=== PATIENT | female | born 1970 | race African-American/Black ===

== ENCOUNTER 2016-12-02 09:43 | Inpatient (IN) | payer OTHER ==
[2016-12-02 10:17] VITALS: BMI 23.2
--- NOTE | 2016-12-02 13:10 | HP ---
CIWA Score - CIWA Score Nausea/Vomitin (N/V/D) Muscle Tremors: 4-Moderate,w/Arms Extend Anxiety: 4-Mod. Anxious/Guarded Agitation: 4-Moderately Restless Paroxysmal Sweats: 1-Minimal Palms Moist Orientation: 0-Oriented Tacttile Disturbances: 3-Moderate Itch/Numb/Burn Auditory Disturbances: 0-None Visual Disturbances: 0-None Headache: 0-None Present CIWA-Ar Total Score: 21 Admission ROS [facility] - HPI Chief Complaint: DETOX TX FOR ALCOHOL. Allergies/Adverse Reactions: Allergies Allergy/AdvReac Type Severity Reaction Status Date / Time No Known Allergies Allergy Verified 12/02/16 10:34 History of Present Illness: 46 Y/O AA/FEMALE WITH A HX OF HEROIN,ALCOHOL AND COCAINE DEPENDENCE AND ON [facility] SEEKING DETOX TX Exam Limitations: No Limitations - Ebola screening Have you traveled outside of the country in the last 21 days: No Have you had contact with anyone from an Ebola affected area: No Have you been sick,other than usual withdrawal symptoms: No Do you have a fever: No - Review of Systems Constitutional: No Symptoms Reported, Chills, Night Sweats, Changes in sleep, Unintentional Wgt. Loss EENT: reports: Blurred Vision, Tearing, Nose Congestion, Dental Problems ( MISSING ALL TEETH) Respiratory: reports: Shortness of Breath (HX ASTHMA), Wheezing Cardiac: reports: Lightheadedness GI: reports: Constipated, Diarrhea, Nausea, Poor Fluid Intake, Vomiting, Abdominal cramping : reports: No Symptoms Reported Musculoskeletal: reports: Back Pain, Joint Pain, Muscle Pain, Other (LEFT LEG SHORTER THAN RIGHT DUE TO BONE FUSION SX.) Integumentary: reports: Bruising (IVD INJ) Neuro: reports: Unsteady Gait, Dizziness Endocrine: reports: No Symptoms Reported Hematology: reports: No Symptoms Reported Psychiatric: reports: Orientated x3, Anxious, Depressed Other Systems: Reviewed and Negative Patient History - Patient Medical History Hx Anemia: No Hx Asthma: Yes Hx Chronic Obstructive Pulmonary Disease (COPD): No Hx Cancer: No Hx Cardiac Disorders: No Hx Congestive Heart Failure: No Hx Hypertension: No Hx Hypercholesterolemia: No Hx Pacemaker: No HX Cerebrovascular Accident: No Hx Seizures: No Hx Dementia: No Hx Diabetes: No Hx Gastrointestinal Disorders: No Hx Liver Disease: No Hx Genitourinary Disorders: No Hx Sexually Transmitted Disorders: No Hx Renal Disease (ESRD): No Hx Thyroid Disease: No Hx Human Immunodeficiency Virus (HIV): No (last tested 12/25/13) Hx Hepatitis C: Yes (since age of 18 years) Hx Depression: Yes Hx Suicide Attempt: No (DENIES S/H IDEATIONS) Hx Bipolar Disorder: No Hx Schizophrenia: No - Patient Surgical History Past Surgical History: Yes Hx Abdominal Surgery: Yes (umbillical hernia repair) Hx Section: No Hx Orthopedic Surgery: Yes (total knee replacement in 10/01 at [facility]) Hx Hysterectomy: No Anesthesia Reaction: No - PPD History Previous Implant?: Yes Documented Results: Negative w/proof Implanted On Prior R Admission?: Yes Date: 08/06/16 - Reproductive History Patient is a Female of Child Bearing Age (11 -55 yrs old): Yes LMP comment: 2-3 YEARS AGO Patient : No - Smoking Cessation Smoking history: Current every day smoker Have you smoked in the past 12 months: Yes Aproximately how many cigarettes per day: 7 Cigars Per Day: 0 Hx Chewing Tobacco Use: No Initiated information on smoking cessation: Yes 'Breaking Loose' booklet given: 12/02/16 - Substance & Tx. History Hx Alcohol Use: Yes Hx Substance Use: Yes Substance Use Type: Alcohol, Cocaine, Heroin Hx Substance Use Treatment: Yes ([facility]OX) - Substances Abused Alcohol Route: Oral Frequency: Daily Amount used: gin(1 pt) Age of first use: 10 Date of Last Use: 12/02/16 Cocaine Route: Smoking Frequency: Daily Amount used: $50 Age of first use: 13 Date of Last Use: 12/01/16 Heroin Route: Injection Frequency: Daily Amount used: 4-5 bags Age of first use: 16 Date of Last Use: 12/02/16 Family Disease History - Family Disease History Family Disease History: Diabetes: Sister, Other: Grandparent (alcohol), Mother ( hypertension) Admission Physical Exam S - Vital Signs Vital Signs: Vital Signs - 24 hr 12/02/16 10:11 Temperature 96.5 F L Pulse Rate 67 Respiratory 20 Rate Blood Pressure 97/50 - Physical General Appearance: Yes: Moderate Distress, Irritable, Anxious HEENTM: Yes: EOMI, Normocephalic, [place], Pharynx Normal, Nasal Congestion, Rhinorrhea, Other (WATERY EYES) Respiratory: Yes: Chest Non-Tender, Lungs Clear, No Respiratory Distress Neck: Yes: No masses,lesions,Nodules, Supple, Trachea in good position Breast: Yes: Breast Exam Deferred Cardiology: Yes: Regular Rhythm, Regular Rate, S1, S2 Abdominal: Yes: Normal Bowel Sounds, Non Tender, Soft Genitourinary: Yes: Other (N/C) Back: Yes: Within Normal Limits Musculoskeletal: Yes: full range of Motion, Gait Steady, Other (LEFT KNEE SX SCAR--) Extremities: Yes: Normal Range of Motion, Non-Tender Neurological: Yes: cigarette package examiner II-XII NML intact, Fully Oriented, Alert, Motor Strength 5/5 Integumentary: Yes: Dry, Warm, Track [place] (BOTH ELBOWS) Lymphatic: Yes: Within Normal Limits - Diagnostic (1) Asthma Current Visit: Yes Status: Chronic Qualifiers: Asthma severity: mild intermittent Asthma complication type: uncomplicated Qualified Code(s): J45.20 - Mild intermittent asthma, uncomplicated (2) Hepatitis C carrier Current Visit: Yes Status: Chronic (3) Methadone maintenance therapy patient Current Visit: Yes Status: Chronic (4) Nicotine dependence Current Visit: Yes Status: Acute Qualifiers: Nicotine product type: cigarettes Substance use status: in withdrawal Qualified Code(s): F17.213 - Nicotine dependence, cigarettes, with withdrawal (5) Alcohol dependence with uncomplicated withdrawal Current Visit: Yes Status: Acute (6) Cocaine dependence, uncomplicated Current Visit: Yes Status: Acute Cleared for Admission [facility] - Detox or Rehab [facility] Level of Care: Medically Managed Detox Regimen/Protocol: Librium [facility] Breath Alcohol Content Breath Alcohol Content: 0 Urine Pregancy Test - Result Urine Test Results: Negative- NO Line Present Urine Drug Screen - Results Drug Screen Negative: No Urine Drug Screen Results: VENTURA-Cocaine, OPI-Opiates, MTD-Methadone
[2016-12-02] MEDS ORDERED: IBUPROFEN 400 MG TABLET (FP) PO PRN (13:31)
[2016-12-02] MEDS ORDERED: NICOTINE POLACRILEX 2 MG GUM BUC PRN (13:31)
[2016-12-02] MEDS ORDERED: MENTHOL/PHENOL 1 EACH UD MM PRN (13:31)
[2016-12-02] MEDS ORDERED: MAGNESIUM HYDROX 2400MG/30ML ORAL SUSPENSION 30 ML CUP PO PRN (13:31)
[2016-12-02] MEDS ORDERED: chlordiazePOXIDE HCL 25 MG CAPSULE PO PRN (13:31)
[2016-12-02] MEDS ORDERED: hydrOXYzine PAMOATE 25 MG CAPSULE (FP) PO PRN (13:31)
[2016-12-02] MEDS ORDERED: MAG HYDROX/AL HYDROX/SIMETH 30 ML UNIT-DOSE CUP PO PRN (13:31)
[2016-12-02] MEDS ORDERED: P-EPHED 60MG/TRIPROLIDI 2.5MG TABLET PO PRN (13:31)
[2016-12-02] MEDS ORDERED: ACETAMINOPHEN 325 MG TABLET (FP) PO PRN (13:31)
[2016-12-02] MEDS ORDERED: MAGNESIUM CITRATE 300 ML BOTTLE PO PRN (13:31)
[2016-12-02] MEDS ORDERED: guaiFENesin/D-METHORPHAN HB 10 ML UNIT-DOSE CUPS PO PRN (13:31)
[2016-12-02] MEDS ORDERED: diphenhydrAMINE HCL 50 MG CAPSULE PO PRN (13:31)
[2016-12-02] MEDS ORDERED: LOPERAMIDE HCL 2 MG CAPSULE PO PRN (13:31)
[2016-12-02] MEDS ORDERED: PATIENT'S OWN MEDICATION (NON-FORMULARY) (Albuterol Sulfate [Proair Respiclick] 90 MCG) IH SCH (13:45)
[2016-12-02] MEDS ORDERED: chlordiazePOXIDE HCL 25 MG CAPSULE PO ONE (14:06)
[2016-12-02] MEDS ORDERED: ALBUTEROL SO4 6.7 GM HFA INHALER IH PRN (14:44)
[2016-12-02] MEDS: GABAPENTIN 100 MG CAPSULE (FP) PO SCH ×2 (14:46→23:38)
[2016-12-02] MEDS: NICOTINE 14 MG/24 HOURS TOPICAL PATCH TD SCH (14:47)
[2016-12-02 14:53] LABS: HIV 1 & 2 AB NEGATIVE; HIV 1 AGp24 NEGATIVE
[2016-12-02] MEDS: chlordiazePOXIDE HCL 25 MG CAPSULE PO SCH ×2 (17:28→23:37)
[2016-12-02 20:14] LABS: URINE APPEARANCE CLEAR; URINE BILIRUBIN NEGATIVE (NEGATIVE); URINE BLOOD NEGATIVE (NEGATIVE); URINE COLOR YELLOW; URINE GLUCOSE (UA) NEGATIVE (NEGATIVE); URINE KETONE NEGATIVE (NEGATIVE); URINE LEUK ESTERASE NEGATIVE (NEGATIVE); URINE NITRITE NEGATIVE (NEGATIVE); URINE PROTEIN NEGATIVE (NEGATIVE); URINE UROBILINOGEN 4.0 E.U/dl E.U./dl (0.2-1.0)
[2016-12-02] MEDS: THIAMINE HCL 100 MG TABLET (FP) PO SCH (23:38)
[2016-12-03] MEDS ORDERED: METHADONE HCL 40 MG DISPERSABLE TABLET PO SCH (06:00)
[2016-12-03] MEDS: chlordiazePOXIDE HCL 25 MG CAPSULE PO SCH ×4 (06:47→23:55)
[2016-12-03] MEDS ORDERED: METHADONE HCL 10 MG TABLET ONE (07:03)
[2016-12-03] MEDS ORDERED: METHADONE HCL 40 MG DISPERSABLE TABLET ONE (07:06)
[2016-12-03] MEDS: METHADONE 40 MG, METHADONE 10 MG PO SCH (07:35)
[2016-12-03] MEDS: GABAPENTIN 100 MG CAPSULE (FP) PO SCH ×3 (07:35→22:46)
[2016-12-03 10:49] LABS: MCH 29.9 pg (25.7-33.7); MCHC 32.7 g/dl (32.0-36.0); MEAN CELL VOLUME 91.5 fl (80-96); MEAN PLT VOLUME 10.3 fl (7.5-11.1); PLATELET COUNT 237 K/MM3 (134-434); RDW 14.7 % (11.6-15.6); WHITE BLOOD COUNT 8.1 K/mm3 (4.0-10.0)
[2016-12-03] MEDS: PRENATAL VITAMINS W/ FOLIC ACID TABLET (FP) PO SCH (11:29)
[2016-12-03] MEDS: NICOTINE 14 MG/24 HOURS TOPICAL PATCH TD SCH (11:30)
[2016-12-03 11:57] LABS: ALBUMIN 3.5 g/dl (3.4-5.0); CALCIUM 8.8 mg/dL (8.5-10.1); CREATININE 1.1 mg/dL (0.55-1.02)
[2016-12-03 11:58] LABS: BILIRUBIN,TOTAL 0.6 mg/dL (0.2-1.0)
--- NOTE | 2016-12-03 14:12 | PN ---
S CIWA - CIWA Score Nausea/Vomitin Muscle Tremors: 3 Anxiety: 3 Agitation: 3 Paroxysmal Sweats: 1-Minimal Palms Moist Orientation: 0-Oriented Tacttile Disturbances: 1-Very Mild Itch/Numbness Auditory Disturbances: 1-Very Mild Visual Disturbances: 1-Very Mild Sensitivity Headache: 2-Mild CIWA-Ar Total Score: 18 BHS Progress Note (SOAP) Subjective: ALERT,IRRITABLE,ANXIOUS,INTERRUPTED SLEEP,TREMOR Objective: 12/03/16 14:10 Vital Signs Temperature 97.1 F L 12/03/16 07:03 Pulse Rate 54 L 12/03/16 07:03 Respiratory Rate 16 12/03/16 07:03 Blood Pressure 145/87 12/03/16 07:03 O2 Sat by Pulse Oximetry (%) ECG NSR NORMAL ECG Laboratory Last Values WBC 8.1 K/mm3 (4.0-10.0) 12/03/16 06:00 RBC 4.56 M/mm3 (3.60-5.2) 12/03/16 06:00 Hgb 13.6 GM/dL (10.7-15.3) 12/03/16 06:00 Hct 41.8 % (32.4-45.2) 12/03/16 06:00 MCV 91.5 fl (80-96) 12/03/16 06:00 MCHC 32.7 g/dl (32.0-36.0) 12/03/16 06:00 RDW 14.7 % (11.6-15.6) D 12/03/16 06:00 Plt Count 237 K/MM3 (134-434) 12/03/16 06:00 MPV 10.3 fl (7.5-11.1) D 12/03/16 06:00 Sodium 141 mmol/L (136-145) 12/03/16 06:00 Potassium 4.4 mmol/L (3.5-5.1) 12/03/16 06:00 Chloride 97 mmol/L (98-107) L 12/03/16 06:00 Carbon Dioxide 33 mmol/L (21-32) H 12/03/16 06:00 Anion Gap 11 (8-16) 12/03/16 06:00 BUN 17 mg/dL (7-18) 12/03/16 06:00 Creatinine 1.1 mg/dL (0.55-1.02) H 12/03/16 06:00 Creat Clearance w eGFR 53.24 (>60) 12/03/16 06:00 Random Glucose 80 mg/dL (74-106) 12/03/16 06:00 Calcium 8.8 mg/dL (8.5-10.1) 12/03/16 06:00 Total Bilirubin 0.6 mg/dL (0.2-1.0) 12/03/16 06:00 AST 22 U/L (15-37) D 12/03/16 06:00 ALT 16 U/L (12-78) D 12/03/16 06:00 Alkaline Phosphatase 109 U/L (45-117) D 12/03/16 06:00 Total Protein 8.0 g/dl (6.4-8.2) 12/03/16 06:00 Albumin 3.5 g/dl (3.4-5.0) 12/03/16 06:00 Urine Color Yellow 12/02/16 19:36 Urine Appearance Clear 12/02/16 19:36 Urine pH 6.0 (5.0-8.0) 12/02/16 19:36 Ur Specific [place] 1.010 (1.001-1.035) 12/02/16 19:36 Urine Protein Negative (NEGATIVE) 12/02/16 19:36 Urine Glucose (UA) Negative (NEGATIVE) 12/02/16 19:36 Urine Ketones Negative (NEGATIVE) 12/02/16 19:36 Urine Blood Negative (NEGATIVE) 12/02/16 19:36 Urine Nitrite Negative (NEGATIVE) 12/02/16 19:36 Urine Bilirubin Negative (NEGATIVE) 12/02/16 19:36 Urine Urobilinogen 4.0 e.u/dl E.U./dl (0.2-1.0) H 12/02/16 19:36 Ur Leukocyte Esterase Negative (NEGATIVE) 12/02/16 19:36 HIV 1&2 Antibody Screen Negative 12/02/16 11:15 HIV P24 Antigen Negative 12/02/16 11:15 Assessment: 12/03/16 14:11 WITHDRAWAL SYMPTOM Plan: CONTINUE DETOX
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
[2016-12-03] MEDS ORDERED: QUEtiapine FUMARATE 200 MG TABLET PO SCH (22:00)
[2016-12-03] MEDS ORDERED: busPIRone HCL 10 MG TABLET (FP) PO SCH (22:00)
[2016-12-03] MEDS: THIAMINE HCL 100 MG TABLET (FP) PO SCH (22:44)
[2016-12-03] MEDS: busPIRone HCL 5 MG TABLET PO SCH (22:45)
[2016-12-03] MEDS: QUEtiapine FUMARATE 100 MG TABLET (FP) PO SCH (22:46)
[2016-12-03] MEDS: ZOLPIDEM TARTRATE 5 MG TABLET PO PRN (22:48)
[2016-12-04] MEDS ORDERED: METHADONE HCL 40 MG DISPERSABLE TABLET ONE (05:39)
[2016-12-04] MEDS ORDERED: METHADONE HCL 10 MG TABLET ONE (05:39)
[2016-12-04] MEDS: METHADONE 40 MG, METHADONE 10 MG PO SCH (06:23)
[2016-12-04] MEDS: GABAPENTIN 100 MG CAPSULE (FP) PO SCH ×3 (06:23→22:32)
[2016-12-04] MEDS: chlordiazePOXIDE HCL 25 MG CAPSULE PO SCH ×2 (06:24→10:51)
[2016-12-04] MEDS: NICOTINE 14 MG/24 HOURS TOPICAL PATCH TD SCH (10:51)
[2016-12-04] MEDS: busPIRone HCL 5 MG TABLET PO SCH ×2 (10:51→22:31)
[2016-12-04] MEDS: PRENATAL VITAMINS W/ FOLIC ACID TABLET (FP) PO SCH (10:51)
--- NOTE | 2016-12-04 11:41 | EKG ---
Test Reason : Blood Pressure : / mmHG Vent. Rate : 062 BPM Atrial Rate : 062 BPM P-R Int : 122 ms QRS Dur : 098 ms QT Int : 416 ms P-R-T Axes : 053 049 035 degrees QTc Int : 422 ms NORMAL SINUS RHYTHM NORMAL ECG NO PREVIOUS ECGS AVAILABLE Confirmed by TIMBO MONTALVO MD ([id number]) on 12/04/2016 11:40:35 AM Referred By: Zhou Brown Confirmed By:TIMBO MONTALVO MD
--- NOTE | 2016-12-04 12:38 | PN ---
S CIWA - CIWA Score Nausea/Vomitin Muscle Tremors: 3 Anxiety: 3 Agitation: 2 Paroxysmal Sweats: 1-Minimal Palms Moist Orientation: 0-Oriented Tacttile Disturbances: 1-Very Mild Itch/Numbness Auditory Disturbances: 1-Very Mild Visual Disturbances: 1-Very Mild Sensitivity Headache: 2-Mild CIWA-Ar Total Score: 17 BHS Progress Note (SOAP) Subjective: ALERT,IRRITABLE,ANXIOUS,INTERRUPTED SLEEP,TREMOR Objective: 12/04/16 12:45 Vital Signs Temperature 98.7 F 12/04/16 10:02 Pulse Rate 77 12/04/16 10:02 Respiratory Rate 20 12/04/16 10:02 Blood Pressure 132/78 12/04/16 10:02 O2 Sat by Pulse Oximetry (%) Laboratory Last Values WBC 8.1 K/mm3 (4.0-10.0) 12/03/16 06:00 RBC 4.56 M/mm3 (3.60-5.2) 12/03/16 06:00 Hgb 13.6 GM/dL (10.7-15.3) 12/03/16 06:00 Hct 41.8 % (32.4-45.2) 12/03/16 06:00 MCV 91.5 fl (80-96) 12/03/16 06:00 MCHC 32.7 g/dl (32.0-36.0) 12/03/16 06:00 RDW 14.7 % (11.6-15.6) D 12/03/16 06:00 Plt Count 237 K/MM3 (134-434) 12/03/16 06:00 MPV 10.3 fl (7.5-11.1) D 12/03/16 06:00 Sodium 141 mmol/L (136-145) 12/03/16 06:00 Potassium 4.4 mmol/L (3.5-5.1) 12/03/16 06:00 Chloride 97 mmol/L (98-107) L 12/03/16 06:00 Carbon Dioxide 33 mmol/L (21-32) H 12/03/16 06:00 Anion Gap 11 (8-16) 12/03/16 06:00 BUN 17 mg/dL (7-18) 12/03/16 06:00 Creatinine 1.1 mg/dL (0.55-1.02) H 12/03/16 06:00 Creat Clearance w eGFR 53.24 (>60) 12/03/16 06:00 Random Glucose 80 mg/dL (74-106) 12/03/16 06:00 Calcium 8.8 mg/dL (8.5-10.1) 12/03/16 06:00 Total Bilirubin 0.6 mg/dL (0.2-1.0) 12/03/16 06:00 AST 22 U/L (15-37) D 12/03/16 06:00 ALT 16 U/L (12-78) D 12/03/16 06:00 Alkaline Phosphatase 109 U/L (45-117) D 12/03/16 06:00 Total Protein 8.0 g/dl (6.4-8.2) 12/03/16 06:00 Albumin 3.5 g/dl (3.4-5.0) 12/03/16 06:00 Urine Color Yellow 12/02/16 19:36 Urine Appearance Clear 12/02/16 19:36 Urine pH 6.0 (5.0-8.0) 12/02/16 19:36 Ur Specific [place] 1.010 (1.001-1.035) 12/02/16 19:36 Urine Protein Negative (NEGATIVE) 12/02/16 19:36 Urine Glucose (UA) Negative (NEGATIVE) 12/02/16 19:36 Urine Ketones Negative (NEGATIVE) 12/02/16 19:36 Urine Blood Negative (NEGATIVE) 12/02/16 19:36 Urine Nitrite Negative (NEGATIVE) 12/02/16 19:36 Urine Bilirubin Negative (NEGATIVE) 12/02/16 19:36 Urine Urobilinogen 4.0 e.u/dl E.U./dl (0.2-1.0) H 12/02/16 19:36 Ur Leukocyte Esterase Negative (NEGATIVE) 12/02/16 19:36 RPR Titer Nonreactive (NONREACTIVE) 12/03/16 06:00 HIV 1&2 Antibody Screen Negative 12/02/16 11:15 HIV P24 Antigen Negative 12/02/16 11:15 Assessment: 12/04/16 12:46 WITHDRAWAL SYMPTOM Plan: CONTINUE DETOX
[2016-12-04] MEDS: chlordiazePOXIDE 5 MG CAPSULE PO SCH ×2 (17:45→22:32)
[2016-12-04] MEDS: QUEtiapine FUMARATE 100 MG TABLET (FP) PO SCH (22:32)
[2016-12-04] MEDS: THIAMINE HCL 100 MG TABLET (FP) PO SCH (22:32)
[2016-12-05] MEDS ORDERED: METHADONE HCL 10 MG TABLET ONE (04:32)
[2016-12-05] MEDS: GABAPENTIN 100 MG CAPSULE (FP) PO SCH ×3 (05:32→22:31)
[2016-12-05] MEDS: chlordiazePOXIDE 5 MG CAPSULE PO SCH ×2 (05:32→11:59)
[2016-12-05] MEDS: METHADONE 40 MG, METHADONE 10 MG PO SCH (05:32)
--- NOTE | 2016-12-05 10:42 | PN ---
BHS Progress Note (SOAP) Subjective: irritable sweats interrupted sleep Objective: 12/05/16 10:41 Vital Signs Temperature 97.8 F 12/05/16 10:17 Pulse Rate 75 12/05/16 10:17 Respiratory Rate 18 12/05/16 10:17 Blood Pressure 112/66 12/05/16 10:17 O2 Sat by Pulse Oximetry (%) awake/alert ambulating no acute distress Assessment: 12/05/16 10:41 withdrawal sx Plan: continue detox increase fluids d/c in am
[2016-12-05] MEDS: PRENATAL VITAMINS W/ FOLIC ACID TABLET (FP) PO SCH (11:32)
[2016-12-05] MEDS: NICOTINE 14 MG/24 HOURS TOPICAL PATCH TD SCH (11:32)
[2016-12-05] MEDS: busPIRone HCL 5 MG TABLET PO SCH ×2 (11:32→22:31)
[2016-12-05] MEDS ORDERED: chlordiazePOXIDE 5 MG CAPSULE ONE ×2 (17:56→21:11)
[2016-12-05] MEDS: chlordiazePOXIDE HCL 10 MG CAPSULE PO SCH ×2 (17:56→22:31)
[2016-12-05] MEDS: ZOLPIDEM TARTRATE 5 MG TABLET PO PRN (22:31)
[2016-12-05] MEDS: THIAMINE HCL 100 MG TABLET (FP) PO SCH (22:31)
[2016-12-05] MEDS: QUEtiapine FUMARATE 100 MG TABLET (FP) PO SCH (22:32)
[2016-12-06] MEDS ORDERED: chlordiazePOXIDE 5 MG CAPSULE ONE (04:42)
[2016-12-06] MEDS ORDERED: METHADONE HCL 10 MG TABLET ONE (05:46)
[2016-12-06] MEDS ORDERED: METHADONE HCL 40 MG DISPERSABLE TABLET ONE (05:47)
[2016-12-06] MEDS: METHADONE 40 MG, METHADONE 10 MG PO SCH (06:39)
[2016-12-06] MEDS: GABAPENTIN 100 MG CAPSULE (FP) PO SCH ×2 (06:42→13:23)
[2016-12-06] MEDS: chlordiazePOXIDE HCL 10 MG CAPSULE PO SCH ×2 (06:42→10:45)
--- NOTE | 2016-12-06 09:01 | DS ---
[facility] Detox Discharge Summary Admission Date: 12/02/16 Discharge Date: 12/06/16 - History Present History: Alcohol Dependence, Cocaine Dependence - Physical Exam Results Vital Signs: Vital Signs Temperature 98.1 F 12/06/16 06:46 Pulse Rate 65 12/06/16 06:46 Respiratory Rate 16 12/06/16 06:46 Blood Pressure 123/77 12/06/16 06:46 O2 Sat by Pulse Oximetry (%) - Treatment Hospital Course: Detox Protocol Followed, Detoxed Safely, Responded well, Discharged Condition Good - Medication Discharge Medications: Ambulatory Orders Quetiapine Fumarate [Seroquel] 50 mg PO DAILY 12/25/13 Zolpidem Tartrate [Ambien] 10 mg PO HS 12/25/13 Quetiapine Fumarate [Seroquel -] 300 mg PO HS 08/04/16 Gabapentin [Neurontin -] 100 mg PO TID #90 capsule 08/08/16 Albuterol Sulfate [Proair Respiclick] 90 mcg IH PRN #1 aer.[email or web address] 08/09/16 Buspirone HCl [Buspar -] 10 mg PO BID 12/02/16 Methadone [Dolophine -] 50 mg PO DAILY 12/02/16 Buspirone HCl [Buspar -] 5 mg PO BID #30 tablet 12/03/16 Quetiapine Fumarate [Seroquel -] 200 mg PO HS #30 tab 12/03/16 - Diagnosis (1) Alcohol dependence with uncomplicated withdrawal Current Visit: Yes Status: Chronic (2) Cocaine dependence, uncomplicated Current Visit: Yes Status: Chronic (3) Insomnia Current Visit: Yes Status: Chronic Qualifiers: Insomnia type: unspecified Qualified Code(s): G47.00 - Insomnia, unspecified (4) Nicotine dependence Current Visit: Yes Status: Chronic Qualifiers: Nicotine product type: cigarettes Substance use status: in withdrawal Qualified Code(s): F17.213 - Nicotine dependence, cigarettes, with withdrawal (5) Opioid dependence on agonist therapy Current Visit: Yes Status: Chronic (6) Asthma Current Visit: Yes Status: Chronic Qualifiers: Asthma severity: mild intermittent Asthma complication type: uncomplicated Qualified Code(s): J45.20 - Mild intermittent asthma, uncomplicated (7) Hepatitis C carrier Current Visit: Yes Status: Chronic - AMA Did Patient Leave Against Medical Advice: No
[2016-12-06] MEDS: PRENATAL VITAMINS W/ FOLIC ACID TABLET (FP) PO SCH (10:44)
[2016-12-06] MEDS: busPIRone HCL 5 MG TABLET PO SCH (10:45)
[2016-12-06] MEDS: NICOTINE 14 MG/24 HOURS TOPICAL PATCH TD SCH (10:45)
[2016-12-06 11:26] VITALS: BP 107/81; PULSE 91; TEMP 99.1
== END 2016-12-06 14:26 | disposition other institution (70) | DRG 773 ==
LOC: YASAS 09:43 → Y6N 11:35
PROVIDERS: ADMIT Internal Medicine Addiction Medicine; ATTEND Internal Medicine Addiction Medicine
PROC: HZ2ZZZZ Detoxification Services for Substance Abuse Treatment (ICD-10-PCS; principal; 2016-12-06)
DX: F11.20 Opioid dependence, uncomplicated (principal); F13.230 Sedative, hypnotic or anxiolytic dependence with withdrawal, uncomplicated; F14.20 Cocaine dependence, uncomplicated; F17.213 Nicotine dependence, cigarettes, with withdrawal; G47.00 Insomnia, unspecified; B18.2 Chronic viral hepatitis C; J45.20 Mild intermittent asthma, uncomplicated; T84.84XS Pain due to internal orthopedic prosthetic devices, implants and grafts, sequela
CPT/HCPCS: 36415; 80053; 81003; 85027; 86593; 87389; 93005; 93010

== ENCOUNTER 2016-12-06 14:42 | Inpatient (IN) | payer OTHER ==
[2016-12-06] MEDS ORDERED: ACETAMINOPHEN 325 MG TABLET (FP) PO PRN (15:29)
[2016-12-06] MEDS ORDERED: MENTHOL/PHENOL 1 EACH UD MM PRN (15:29)
[2016-12-06] MEDS ORDERED: LOPERAMIDE HCL 2 MG CAPSULE PO PRN (15:29)
[2016-12-06] MEDS ORDERED: NICOTINE POLACRILEX 2 MG GUM BUC PRN (15:29)
[2016-12-06] MEDS ORDERED: MAGNESIUM HYDROX 2400MG/30ML ORAL SUSPENSION 30 ML CUP PO PRN (15:29)
[2016-12-06] MEDS ORDERED: P-EPHED 60MG/TRIPROLIDI 2.5MG TABLET PO PRN (15:29)
[2016-12-06] MEDS ORDERED: guaiFENesin/D-METHORPHAN HB 10 ML UNIT-DOSE CUPS PO PRN (15:29)
[2016-12-06] MEDS ORDERED: MAGNESIUM CITRATE 300 ML BOTTLE PO PRN (15:29)
[2016-12-06] MEDS ORDERED: diphenhydrAMINE HCL 50 MG CAPSULE PO PRN (15:29)
--- NOTE | 2016-12-06 15:35 | HP ---
[facility] Rehab Assess/Revision - Admission History Admitted to Rehab from: [facility] Date of Admission to Rehab: 12/06/16 - Vital signs Vital Signs: Vital Signs 12/06/16 15:54 Temperature 98.2 F Pulse Rate 80 Respiratory 18 Rate Blood Pressure 100/73 - Findings Detox History & Physical reviewed: Yes Concur with findings: Yes
[2016-12-06] MEDS: GABAPENTIN 100 MG CAPSULE (FP) PO SCH (21:04)
[2016-12-06] MEDS: QUEtiapine FUMARATE 50 MG TABLET PO SCH (21:05)
[2016-12-06] MEDS: busPIRone HCL 10 MG TABLET (FP) PO SCH (21:05)
[2016-12-06] MEDS: THIAMINE HCL 100 MG TABLET (FP) PO SCH (21:05)
[2016-12-06] MEDS ORDERED: QUEtiapine FUMARATE 300 MG TABLET PO SCH (22:00)
[2016-12-07] MEDS ORDERED: METHADONE HCL 10 MG TABLET PO SCH (06:00)
[2016-12-07] MEDS ORDERED: METHADONE HCL 40 MG DISPERSABLE TABLET ONE (06:16)
[2016-12-07] MEDS ORDERED: METHADONE HCL 10 MG TABLET ONE (06:16)
[2016-12-07] MEDS: GABAPENTIN 100 MG CAPSULE (FP) PO SCH ×3 (06:50→21:10)
[2016-12-07] MEDS: METHADONE 40 MG, METHADONE 10 MG PO SCH (06:50)
[2016-12-07] MEDS ORDERED: QUEtiapine FUMARATE 50 MG TABLET PO SCH (10:00)
[2016-12-07] MEDS: PRENATAL VITAMINS W/ FOLIC ACID TABLET (FP) PO SCH (10:10)
[2016-12-07] MEDS: busPIRone HCL 10 MG TABLET (FP) PO SCH ×2 (10:11→21:10)
[2016-12-07] MEDS ORDERED: PT OWN MED DRAWER 7, Y5N ONE ×2 (12:07→22:52)
[2016-12-07] MEDS: IBUPROFEN 400 MG TABLET (FP) PO PRN (14:26)
[2016-12-07] MEDS: QUEtiapine FUMARATE 50 MG TABLET PO SCH (21:09)
[2016-12-07] MEDS: THIAMINE HCL 100 MG TABLET (FP) PO SCH (21:10)
[2016-12-08] MEDS ORDERED: METHADONE HCL 10 MG TABLET ONE (03:05)
[2016-12-08] MEDS ORDERED: METHADONE HCL 40 MG DISPERSABLE TABLET ONE (03:05)
[2016-12-08] MEDS: METHADONE 40 MG, METHADONE 10 MG PO SCH (06:55)
[2016-12-08] MEDS: GABAPENTIN 100 MG CAPSULE (FP) PO SCH ×3 (06:56→21:11)
[2016-12-08] MEDS: PRENATAL VITAMINS W/ FOLIC ACID TABLET (FP) PO SCH (09:53)
[2016-12-08] MEDS: busPIRone HCL 10 MG TABLET (FP) PO SCH ×2 (09:53→21:11)
[2016-12-08] MEDS: THIAMINE HCL 100 MG TABLET (FP) PO SCH (21:11)
[2016-12-08] MEDS: QUEtiapine FUMARATE 50 MG TABLET PO SCH (21:12)
[2016-12-08] MEDS: MAG HYDROX/AL HYDROX/SIMETH 30 ML UNIT-DOSE CUP PO PRN (21:12)
[2016-12-09] MEDS ORDERED: METHADONE HCL 10 MG TABLET ONE (05:51)
[2016-12-09] MEDS ORDERED: METHADONE HCL 40 MG DISPERSABLE TABLET ONE (05:51)
[2016-12-09] MEDS: METHADONE 40 MG, METHADONE 10 MG PO SCH (07:07)
[2016-12-09] MEDS: GABAPENTIN 100 MG CAPSULE (FP) PO SCH ×3 (07:08→21:15)
[2016-12-09] MEDS: PRENATAL VITAMINS W/ FOLIC ACID TABLET (FP) PO SCH (10:08)
[2016-12-09] MEDS: busPIRone HCL 10 MG TABLET (FP) PO SCH ×2 (10:08→21:15)
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
[2016-12-09] MEDS: IBUPROFEN 400 MG TABLET (FP) PO PRN (11:25)
[2016-12-09] MEDS ORDERED: PT OWN MED DRAWER 7, Y5N ONE (19:41)
[2016-12-09] MEDS: THIAMINE HCL 100 MG TABLET (FP) PO SCH (21:15)
[2016-12-09] MEDS: QUEtiapine FUMARATE 50 MG TABLET PO SCH (21:15)
[2016-12-10] MEDS ORDERED: METHADONE HCL 40 MG DISPERSABLE TABLET ONE (03:08)
[2016-12-10] MEDS ORDERED: METHADONE HCL 10 MG TABLET ONE (03:08)
[2016-12-10] MEDS: METHADONE 40 MG, METHADONE 10 MG PO SCH (06:56)
[2016-12-10] MEDS: GABAPENTIN 100 MG CAPSULE (FP) PO SCH ×3 (06:56→21:21)
[2016-12-10] MEDS: PRENATAL VITAMINS W/ FOLIC ACID TABLET (FP) PO SCH (09:44)
[2016-12-10] MEDS: busPIRone HCL 10 MG TABLET (FP) PO SCH ×2 (09:44→21:21)
[2016-12-10] MEDS: MAG HYDROX/AL HYDROX/SIMETH 30 ML UNIT-DOSE CUP PO PRN (09:47)
[2016-12-10] MEDS ORDERED: MAGNESIUM CITRATE 300 ML BOTTLE PO PRN (20:29)
[2016-12-10] MEDS: THIAMINE HCL 100 MG TABLET (FP) PO SCH (21:21)
[2016-12-10] MEDS: QUEtiapine FUMARATE 50 MG TABLET PO SCH (21:22)
[2016-12-11] MEDS ORDERED: METHADONE HCL 40 MG DISPERSABLE TABLET ONE (03:06)
[2016-12-11] MEDS ORDERED: METHADONE HCL 10 MG TABLET ONE (03:06)
[2016-12-11] MEDS: METHADONE 40 MG, METHADONE 10 MG PO SCH (06:36)
[2016-12-11] MEDS: GABAPENTIN 100 MG CAPSULE (FP) PO SCH ×3 (06:37→21:37)
[2016-12-11] MEDS: busPIRone HCL 10 MG TABLET (FP) PO SCH ×2 (10:10→21:37)
[2016-12-11] MEDS: PRENATAL VITAMINS W/ FOLIC ACID TABLET (FP) PO SCH (10:10)
[2016-12-11] MEDS ORDERED: SODIUM PHOSPHATE/NA BIPHOS 133 ML ENEMA PR ONE (14:56)
[2016-12-11] MEDS: QUEtiapine FUMARATE 50 MG TABLET PO SCH (21:36)
[2016-12-11] MEDS: THIAMINE HCL 100 MG TABLET (FP) PO SCH (21:37)
[2016-12-11] MEDS: ALBUTEROL SO4 6.7 GM HFA INHALER IH PRN (21:46)
[2016-12-12] MEDS ORDERED: METHADONE HCL 10 MG TABLET ONE (03:36)
[2016-12-12] MEDS ORDERED: METHADONE HCL 40 MG DISPERSABLE TABLET ONE (03:36)
[2016-12-12] MEDS: METHADONE 40 MG, METHADONE 10 MG PO SCH (06:44)
[2016-12-12] MEDS: GABAPENTIN 100 MG CAPSULE (FP) PO SCH ×3 (06:45→21:51)
[2016-12-12] MEDS: PRENATAL VITAMINS W/ FOLIC ACID TABLET (FP) PO SCH (10:10)
[2016-12-12] MEDS: busPIRone HCL 10 MG TABLET (FP) PO SCH ×2 (10:10→21:51)
[2016-12-12] MEDS: ALBUTEROL SO4 6.7 GM HFA INHALER IH PRN (10:10)
[2016-12-12] MEDS: QUEtiapine FUMARATE 50 MG TABLET PO SCH (21:51)
[2016-12-12] MEDS: THIAMINE HCL 100 MG TABLET (FP) PO SCH (21:51)
[2016-12-12] MEDS: DOCUSATE SODIUM 100 MG CAPSULE (FP) PO SCH (21:52)
[2016-12-13] MEDS ORDERED: METHADONE HCL 40 MG DISPERSABLE TABLET ONE (05:55)
[2016-12-13] MEDS ORDERED: METHADONE HCL 10 MG TABLET ONE (05:55)
[2016-12-13] MEDS: METHADONE 40 MG, METHADONE 10 MG PO SCH (07:06)
[2016-12-13] MEDS: GABAPENTIN 100 MG CAPSULE (FP) PO SCH ×3 (07:06→21:33)
[2016-12-13] MEDS: DOCUSATE SODIUM 100 MG CAPSULE (FP) PO SCH ×2 (10:06→21:33)
[2016-12-13] MEDS: busPIRone HCL 10 MG TABLET (FP) PO SCH ×2 (10:06→21:33)
[2016-12-13] MEDS: PRENATAL VITAMINS W/ FOLIC ACID TABLET (FP) PO SCH (10:06)
[2016-12-13] MEDS: QUEtiapine FUMARATE 50 MG TABLET PO SCH (21:33)
[2016-12-13] MEDS: THIAMINE HCL 100 MG TABLET (FP) PO SCH (21:34)
[2016-12-14] MEDS ORDERED: METHADONE HCL 40 MG DISPERSABLE TABLET ONE (06:15)
[2016-12-14] MEDS ORDERED: METHADONE HCL 10 MG TABLET ONE (06:15)
[2016-12-14] MEDS: GABAPENTIN 100 MG CAPSULE (FP) PO SCH ×3 (06:46→21:29)
[2016-12-14] MEDS: METHADONE 40 MG, METHADONE 10 MG PO SCH (06:46)
[2016-12-14] MEDS: busPIRone HCL 10 MG TABLET (FP) PO SCH ×2 (10:07→21:30)
[2016-12-14] MEDS: DOCUSATE SODIUM 100 MG CAPSULE (FP) PO SCH ×2 (10:07→21:29)
[2016-12-14] MEDS: PRENATAL VITAMINS W/ FOLIC ACID TABLET (FP) PO SCH (10:07)
[2016-12-14] MEDS ORDERED: PT OWN MED DRAWER 7, Y5N ONE ×2 (12:05→19:56)
[2016-12-14] MEDS: IBUPROFEN 400 MG TABLET (FP) PO PRN (16:31)
[2016-12-14] MEDS: THIAMINE HCL 100 MG TABLET (FP) PO SCH (21:29)
[2016-12-14] MEDS: QUEtiapine FUMARATE 50 MG TABLET PO SCH (21:29)
[2016-12-15] MEDS ORDERED: METHADONE HCL 40 MG DISPERSABLE TABLET ONE (03:41)
[2016-12-15] MEDS ORDERED: METHADONE HCL 10 MG TABLET ONE (03:41)
[2016-12-15] MEDS: GABAPENTIN 100 MG CAPSULE (FP) PO SCH ×3 (06:49→21:31)
[2016-12-15] MEDS: METHADONE 40 MG, METHADONE 10 MG PO SCH (06:49)
[2016-12-15] MEDS: busPIRone HCL 10 MG TABLET (FP) PO SCH ×2 (10:03→21:32)
[2016-12-15] MEDS: DOCUSATE SODIUM 100 MG CAPSULE (FP) PO SCH ×2 (10:03→21:32)
[2016-12-15] MEDS: PRENATAL VITAMINS W/ FOLIC ACID TABLET (FP) PO SCH (10:03)
[2016-12-15] MEDS ORDERED: PT OWN MED DRAWER 7, Y5N ONE ×2 (13:24→13:29)
[2016-12-15] MEDS: ALBUTEROL SO4 6.7 GM HFA INHALER IH PRN (13:24)
[2016-12-15] MEDS: THIAMINE HCL 100 MG TABLET (FP) PO SCH (21:31)
[2016-12-15] MEDS: QUEtiapine FUMARATE 50 MG TABLET PO SCH (21:32)
[2016-12-16] MEDS ORDERED: METHADONE HCL 40 MG DISPERSABLE TABLET ONE (03:19)
[2016-12-16] MEDS ORDERED: METHADONE HCL 10 MG TABLET ONE (03:19)
[2016-12-16] MEDS: METHADONE 40 MG, METHADONE 10 MG PO SCH (06:46)
[2016-12-16] MEDS: GABAPENTIN 100 MG CAPSULE (FP) PO SCH ×3 (06:47→21:22)
[2016-12-16] MEDS: ALBUTEROL SO4 6.7 GM HFA INHALER IH PRN (10:15)
[2016-12-16] MEDS ORDERED: PT OWN MED DRAWER 7, Y5N ONE (10:15)
[2016-12-16] MEDS: PRENATAL VITAMINS W/ FOLIC ACID TABLET (FP) PO SCH (10:16)
[2016-12-16] MEDS: DOCUSATE SODIUM 100 MG CAPSULE (FP) PO SCH ×2 (10:16→21:21)
[2016-12-16] MEDS: busPIRone HCL 10 MG TABLET (FP) PO SCH ×2 (10:16→21:22)
[2016-12-16] MEDS: QUEtiapine FUMARATE 50 MG TABLET PO SCH (21:21)
[2016-12-16] MEDS: THIAMINE HCL 100 MG TABLET (FP) PO SCH (21:22)
[2016-12-16] MEDS: IBUPROFEN 400 MG TABLET (FP) PO PRN (21:22)
[2016-12-17] MEDS ORDERED: METHADONE HCL 10 MG TABLET ONE (05:47)
[2016-12-17] MEDS ORDERED: METHADONE HCL 40 MG DISPERSABLE TABLET ONE (05:47)
[2016-12-17] MEDS: METHADONE 40 MG, METHADONE 10 MG PO SCH (06:55)
[2016-12-17] MEDS: GABAPENTIN 100 MG CAPSULE (FP) PO SCH ×3 (06:56→21:19)
[2016-12-17] MEDS ORDERED: PT OWN MED DRAWER 7, Y5N ONE (08:48)
[2016-12-17] MEDS: PRENATAL VITAMINS W/ FOLIC ACID TABLET (FP) PO SCH (09:59)
[2016-12-17] MEDS: ALBUTEROL SO4 6.7 GM HFA INHALER IH PRN (10:00)
[2016-12-17] MEDS: busPIRone HCL 10 MG TABLET (FP) PO SCH ×2 (10:00→21:19)
[2016-12-17] MEDS: DOCUSATE SODIUM 100 MG CAPSULE (FP) PO SCH ×2 (10:00→21:19)
[2016-12-17] MEDS: THIAMINE HCL 100 MG TABLET (FP) PO SCH (21:19)
[2016-12-17] MEDS: QUEtiapine FUMARATE 50 MG TABLET PO SCH (21:19)
[2016-12-17] MEDS: IBUPROFEN 400 MG TABLET (FP) PO PRN (21:21)
[2016-12-18] MEDS ORDERED: METHADONE HCL 40 MG DISPERSABLE TABLET ONE (05:59)
[2016-12-18] MEDS ORDERED: METHADONE HCL 10 MG TABLET ONE (05:59)
[2016-12-18] MEDS: METHADONE 40 MG, METHADONE 10 MG PO SCH (07:06)
[2016-12-18] MEDS: IBUPROFEN 400 MG TABLET (FP) PO PRN (07:07)
[2016-12-18] MEDS: GABAPENTIN 100 MG CAPSULE (FP) PO SCH ×3 (07:07→21:28)
[2016-12-18] MEDS: busPIRone HCL 10 MG TABLET (FP) PO SCH ×2 (09:38→21:28)
[2016-12-18] MEDS: DOCUSATE SODIUM 100 MG CAPSULE (FP) PO SCH ×2 (09:38→21:28)
[2016-12-18] MEDS: ALBUTEROL SO4 6.7 GM HFA INHALER IH PRN ×2 (09:38→21:30)
[2016-12-18] MEDS: PRENATAL VITAMINS W/ FOLIC ACID TABLET (FP) PO SCH (09:38)
[2016-12-18] MEDS: QUEtiapine FUMARATE 50 MG TABLET PO SCH (21:28)
[2016-12-18] MEDS: THIAMINE HCL 100 MG TABLET (FP) PO SCH (21:28)
[2016-12-19] MEDS ORDERED: METHADONE HCL 40 MG DISPERSABLE TABLET ONE (03:07)
[2016-12-19] MEDS ORDERED: METHADONE HCL 10 MG TABLET ONE (03:07)
[2016-12-19] MEDS: METHADONE 40 MG, METHADONE 10 MG PO SCH (06:39)
[2016-12-19] MEDS: GABAPENTIN 100 MG CAPSULE (FP) PO SCH ×3 (06:40→21:34)
[2016-12-19] MEDS: ALBUTEROL SO4 6.7 GM HFA INHALER IH PRN (09:34)
[2016-12-19] MEDS: PRENATAL VITAMINS W/ FOLIC ACID TABLET (FP) PO SCH (09:34)
[2016-12-19] MEDS: DOCUSATE SODIUM 100 MG CAPSULE (FP) PO SCH ×2 (09:35→21:34)
[2016-12-19] MEDS: busPIRone HCL 10 MG TABLET (FP) PO SCH ×2 (09:35→21:34)
[2016-12-19] MEDS: IBUPROFEN 400 MG TABLET (FP) PO PRN (13:17)
[2016-12-19] MEDS: LIDOCAINE 5% TOPICAL PATCH TP SCH (15:07)
[2016-12-19] MEDS: THIAMINE HCL 100 MG TABLET (FP) PO SCH (21:34)
[2016-12-19] MEDS: QUEtiapine FUMARATE 50 MG TABLET PO SCH (21:34)
[2016-12-20] MEDS ORDERED: METHADONE HCL 40 MG DISPERSABLE TABLET ONE (05:15)
[2016-12-20] MEDS ORDERED: METHADONE HCL 10 MG TABLET ONE (05:15)
[2016-12-20] MEDS: GABAPENTIN 100 MG CAPSULE (FP) PO SCH ×3 (06:14→21:17)
[2016-12-20] MEDS: METHADONE 40 MG, METHADONE 10 MG PO SCH (06:15)
[2016-12-20] MEDS: PRENATAL VITAMINS W/ FOLIC ACID TABLET (FP) PO SCH (10:11)
[2016-12-20] MEDS: busPIRone HCL 10 MG TABLET (FP) PO SCH ×2 (10:11→21:17)
[2016-12-20] MEDS: DOCUSATE SODIUM 100 MG CAPSULE (FP) PO SCH ×2 (10:11→21:17)
[2016-12-20] MEDS: LIDOCAINE 5% TOPICAL PATCH TP SCH (10:12)
[2016-12-20] MEDS: IBUPROFEN 600 MG TABLET (FP) PO PRN (19:07)
[2016-12-20] MEDS: THIAMINE HCL 100 MG TABLET (FP) PO SCH (21:17)
[2016-12-20] MEDS: QUEtiapine FUMARATE 50 MG TABLET PO SCH (21:17)
[2016-12-21] MEDS ORDERED: METHADONE HCL 10 MG TABLET ONE (06:03)
[2016-12-21] MEDS ORDERED: METHADONE HCL 40 MG DISPERSABLE TABLET ONE (06:03)
[2016-12-21] MEDS: GABAPENTIN 100 MG CAPSULE (FP) PO SCH ×3 (06:35→21:36)
[2016-12-21] MEDS: METHADONE 40 MG, METHADONE 10 MG PO SCH (06:35)
[2016-12-21] MEDS: IBUPROFEN 600 MG TABLET (FP) PO PRN (06:37)
[2016-12-21] MEDS: busPIRone HCL 10 MG TABLET (FP) PO SCH ×2 (10:10→21:36)
[2016-12-21] MEDS: LIDOCAINE 5% TOPICAL PATCH TP SCH (10:10)
[2016-12-21] MEDS: PRENATAL VITAMINS W/ FOLIC ACID TABLET (FP) PO SCH (10:10)
[2016-12-21] MEDS: DOCUSATE SODIUM 100 MG CAPSULE (FP) PO SCH ×2 (10:10→21:36)
[2016-12-21] MEDS ORDERED: COLLOIDAL OATMEAL 1 BAR EACH TP PRN (14:49)
--- NOTE | 2016-12-21 16:27 | PN ---
Psychiatric Progress Note Vital Signs: Vital Signs Period Temp Pulse Resp BP Sys/Vidal Pulse Ox Last 24 Hr 98.0 F 69 16-18 151/86 Date of Session: 12/21/16 Chief Complaint:: Emmanuel not sleeping well,still having mood instability. HPI: Patient addressed Alcohol,Cocaine and Opioid dependence comorbid with Substance induced mood disorder. ROS: BA,Hep C. Current Medications: Active Medications Generic Name Dose Route Start Last Admin Trade Name Freq PRN Reason Stop Dose Admin Acetaminophen 650 mg 12/06/16 15:29 Tylenol - PO Q4H PRN FEVER OR PAIN Al Hydroxide/Mg Hydroxide 30 ml 12/06/16 15:29 12/10/16 09:47 Mylanta Oral Suspension - PO 30 ml Q6H PRN Administration DYSPEPSIA Albuterol Sulfate 2 puff 12/06/16 15:31 12/19/16 09:34 Ventolin Hfa Inhaler - IH 2 puff Q4H PRN Administration SHORT OF BREATH/WHEEZING Buspirone HCl 10 mg 12/06/16 22:00 12/21/16 10:10 Buspar - PO 10 mg BID JAYSON Administration Colloidal Oatmeal 1 applic 12/21/16 14:49 Aveeno Soap - TP DAILY PRN HYGEINE Diphenhydramine HCl 50 mg 12/06/16 15:29 Benadryl - PO HSMR1 PRN FOR ITCHING Docusate Sodium 100 mg 12/12/16 22:00 12/21/16 10:10 Colace - PO 100 mg BID JAYSON Administration Eucalyptus/Menthol/Phenol/Sorbitol 1 each 12/06/16 15:29 Cepastat Lozenge - MM Q4H PRN SORE THROAT Gabapentin 100 mg 12/06/16 22:00 12/21/16 13:34 Neurontin - PO 100 mg TID JAYSON Administration Guaifenesin 10 ml 12/06/16 15:29 Robitussin Dm - PO Q6H PRN COUGH Ibuprofen 600 mg 12/19/16 14:33 12/21/16 06:37 Motrin - PO 600 mg Q6H PRN Administration PAIN Lidocaine 1 patch 12/19/16 15:15 12/21/16 10:10 Lidoderm Patch - TP 1 patch DAILY JAYSON Administration Loperamide HCl 4 mg 12/06/16 15:29 Imodium - PO Q6H PRN DIARRHEA Magnesium Hydroxide 30 ml 12/06/16 15:29 12/10/16 14:24 Milk Of Magnesia - PO 30 ml DAILY PRN Administration CONSTIPATION Methadone HCl 40 mg/ Methadone 50 mg 12/21/16 06:00 12/21/16 06:35 HCl 10 mg PO 12/27/16 05:59 50 mg DAILY@0600 JAYSON Administration Nicotine Polacrilex 2 mg 12/06/16 15:29 Nicorette Gum - BUC Q2H PRN NICOTINE REPLACEMENT RX Multivit/Folic Acid/Iron 1 tab 12/07/16 10:00 12/21/16 10:10 Vitamins (Sjr) - PO 1 tab DAILY JAYSON Administration Pseudoephedrine/Triprolidine 1 combo 12/06/16 15:29 Actifed - PO TID PRN NASAL CONGESTION Quetiapine Fumarate 200 mg 12/21/16 22:00 Seroquel - PO HS JAYSON Thiamine HCl 100 mg 12/06/16 22:00 12/20/16 21:17 Vitamin B1 - PO 100 mg HS JAYSON Administration Current Side Effect: No Lab tests ordered: No Lab tests reviewed: Yes Provider note:: Chart was rewueved .Medications and treatment plan has been discussed with the patient .She reported that higher dose of Seroquel helped her a lot in ther past.Properties of Seroquel has been discussed including side effects,benefits and dose adjustment.Seroquel 150 mg po hs will be adjusted to 200 mg po hs. Supportive therapy has been provided. Total face to face time:: 30 Mental Status Exam - Mental Status Exam Alert and Oriented to: Time, Place, Person Cognitive Function: Grossly Intact Patient Appearance: Well Groomed Mood: Anxious Affect: Mood Congruent Patient Behavior: Cooperative Speech Pattern: Clear Voice Loudness: Normal Thought Process: Goal Oriented Thought Disorder: Not Present Hallucinations: Denies Suicidal Ideation: Denies Homicidal Ideation: Denies Insight/Judgement: Fair Sleep: Difficulty falling asleep Appetite: Good Muscle strength/Tone: Normal Gait/Station: Normal Psychiatric Treatment Plan - Problem List (1) Substance induced mood disorder Current Visit: Yes (2) Alcohol dependence with uncomplicated withdrawal Current Visit: Yes (3) Asthma Current Visit: Yes Qualifiers: (4) Cocaine dependence, uncomplicated Current Visit: Yes (5) Hepatitis C carrier Current Visit: Yes (6) Methadone maintenance therapy patient Current Visit: Yes
[2016-12-21] MEDS: THIAMINE HCL 100 MG TABLET (FP) PO SCH (21:36)
[2016-12-21] MEDS: QUEtiapine FUMARATE 200 MG TABLET PO SCH (21:37)
[2016-12-22] MEDS ORDERED: METHADONE HCL 40 MG DISPERSABLE TABLET ONE (03:16)
[2016-12-22] MEDS ORDERED: METHADONE HCL 10 MG TABLET ONE (03:16)
[2016-12-22] MEDS: METHADONE 40 MG, METHADONE 10 MG PO SCH (06:38)
[2016-12-22] MEDS: GABAPENTIN 100 MG CAPSULE (FP) PO SCH ×3 (06:39→21:32)
[2016-12-22] MEDS: LIDOCAINE 5% TOPICAL PATCH TP SCH (10:29)
[2016-12-22] MEDS: DOCUSATE SODIUM 100 MG CAPSULE (FP) PO SCH ×2 (10:29→21:32)
[2016-12-22] MEDS: busPIRone HCL 10 MG TABLET (FP) PO SCH ×2 (10:29→21:32)
[2016-12-22] MEDS: PRENATAL VITAMINS W/ FOLIC ACID TABLET (FP) PO SCH (10:29)
[2016-12-22] MEDS: QUEtiapine FUMARATE 200 MG TABLET PO SCH (21:32)
[2016-12-22] MEDS: THIAMINE HCL 100 MG TABLET (FP) PO SCH (21:40)
[2016-12-23] MEDS ORDERED: METHADONE HCL 40 MG DISPERSABLE TABLET ONE (05:58)
[2016-12-23] MEDS ORDERED: METHADONE HCL 10 MG TABLET ONE (05:58)
[2016-12-23] MEDS: METHADONE 40 MG, METHADONE 10 MG PO SCH (06:47)
[2016-12-23] MEDS: GABAPENTIN 100 MG CAPSULE (FP) PO SCH ×3 (06:48→21:31)
[2016-12-23] MEDS: IBUPROFEN 600 MG TABLET (FP) PO PRN ×3 (06:50→21:33)
[2016-12-23] MEDS: LIDOCAINE 5% TOPICAL PATCH TP SCH (10:25)
[2016-12-23] MEDS: DOCUSATE SODIUM 100 MG CAPSULE (FP) PO SCH ×2 (10:25→21:31)
[2016-12-23] MEDS: PRENATAL VITAMINS W/ FOLIC ACID TABLET (FP) PO SCH (10:25)
[2016-12-23] MEDS: busPIRone HCL 10 MG TABLET (FP) PO SCH ×2 (10:26→21:31)
[2016-12-23] MEDS: QUEtiapine FUMARATE 200 MG TABLET PO SCH (21:31)
[2016-12-23] MEDS: THIAMINE HCL 100 MG TABLET (FP) PO SCH (21:32)
[2016-12-24] MEDS ORDERED: METHADONE HCL 10 MG TABLET ONE (03:23)
[2016-12-24] MEDS ORDERED: METHADONE HCL 40 MG DISPERSABLE TABLET ONE (03:23)
[2016-12-24] MEDS: METHADONE 40 MG, METHADONE 10 MG PO SCH (06:32)
[2016-12-24] MEDS: GABAPENTIN 100 MG CAPSULE (FP) PO SCH ×3 (06:32→21:22)
[2016-12-24] MEDS: busPIRone HCL 10 MG TABLET (FP) PO SCH ×2 (10:06→21:22)
[2016-12-24] MEDS: PRENATAL VITAMINS W/ FOLIC ACID TABLET (FP) PO SCH (10:06)
[2016-12-24] MEDS: DOCUSATE SODIUM 100 MG CAPSULE (FP) PO SCH ×2 (10:06→21:22)
[2016-12-24] MEDS: LIDOCAINE 5% TOPICAL PATCH TP SCH (10:07)
[2016-12-24] MEDS: ALBUTEROL SO4 6.7 GM HFA INHALER IH PRN ×2 (10:07→21:22)
[2016-12-24] MEDS: IBUPROFEN 600 MG TABLET (FP) PO PRN (21:21)
[2016-12-24] MEDS: THIAMINE HCL 100 MG TABLET (FP) PO SCH (21:22)
[2016-12-24] MEDS: QUEtiapine FUMARATE 200 MG TABLET PO SCH (21:22)
[2016-12-25] MEDS ORDERED: METHADONE HCL 40 MG DISPERSABLE TABLET ONE (03:24)
[2016-12-25] MEDS ORDERED: METHADONE HCL 10 MG TABLET ONE (03:24)
[2016-12-25] MEDS: METHADONE 40 MG, METHADONE 10 MG PO SCH (06:33)
[2016-12-25] MEDS: GABAPENTIN 100 MG CAPSULE (FP) PO SCH ×3 (06:33→21:22)
[2016-12-25] MEDS: busPIRone HCL 10 MG TABLET (FP) PO SCH ×2 (10:07→21:22)
[2016-12-25] MEDS: PRENATAL VITAMINS W/ FOLIC ACID TABLET (FP) PO SCH (10:07)
[2016-12-25] MEDS: LIDOCAINE 5% TOPICAL PATCH TP SCH (10:07)
[2016-12-25] MEDS: DOCUSATE SODIUM 100 MG CAPSULE (FP) PO SCH ×2 (10:07→21:22)
--- NOTE | 2016-12-25 16:21 | PN ---
Psychiatric Progress Note Vital Signs: Vital Signs Period Temp Pulse Resp BP Sys/Vidal Pulse Ox Last 24 Hr 98.1 F 59 16-16 130/77 Date of Session: 12/26/16 Chief Complaint:: Psychiatrist Discharge Note HPI: Patient addressing Alcohol and Cocaine Dependence comorbid with Opoid Dependence, Nicotine Dependence and Substance-Induced Mood Disorder ROS: Asthma and Hepatitis C were medically managed Current Medications: Active Medications Generic Name Dose Route Start Last Admin Trade Name Freq PRN Reason Stop Dose Admin Acetaminophen 650 mg 12/06/16 15:29 Tylenol - PO Q4H PRN FEVER OR PAIN Al Hydroxide/Mg Hydroxide 30 ml 12/06/16 15:29 12/10/16 09:47 Mylanta Oral Suspension - PO 30 ml Q6H PRN Administration DYSPEPSIA Albuterol Sulfate 2 puff 12/06/16 15:31 12/24/16 21:22 Ventolin Hfa Inhaler - IH 2 puff Q4H PRN Administration SHORT OF BREATH/WHEEZING Buspirone HCl 10 mg 12/06/16 22:00 12/25/16 10:07 Buspar - PO 10 mg BID JAYSON Administration Colloidal Oatmeal 1 applic 12/21/16 14:49 12/22/16 10:29 Aveeno Soap - TP 1 applic DAILY PRN Administration HYGEINE Diphenhydramine HCl 50 mg 12/06/16 15:29 Benadryl - PO HSMR1 PRN FOR ITCHING Docusate Sodium 100 mg 12/12/16 22:00 12/25/16 10:07 Colace - PO 100 mg BID JAYSON Administration Eucalyptus/Menthol/Phenol/Sorbitol 1 each 12/06/16 15:29 Cepastat Lozenge - MM Q4H PRN SORE THROAT Gabapentin 100 mg 12/06/16 22:00 12/25/16 13:09 Neurontin - PO 100 mg TID JYASON Administration Guaifenesin 10 ml 12/06/16 15:29 Robitussin Dm - PO Q6H PRN COUGH Ibuprofen 600 mg 12/19/16 14:33 12/24/16 21:21 Motrin - PO 600 mg Q6H PRN Administration PAIN Lidocaine 1 patch 12/19/16 15:15 12/25/16 10:07 Lidoderm Patch - TP 1 patch DAILY JAYSON Administration Loperamide HCl 4 mg 12/06/16 15:29 Imodium - PO Q6H PRN DIARRHEA Magnesium Hydroxide 30 ml 12/06/16 15:29 12/10/16 14:24 Milk Of Magnesia - PO 30 ml DAILY PRN Administration CONSTIPATION Methadone HCl 40 mg/ Methadone 50 mg 12/21/16 06:00 12/25/16 06:33 HCl 10 mg PO 12/27/16 05:59 50 mg DAILY@0600 JAYSON Administration Nicotine Polacrilex 2 mg 12/06/16 15:29 Nicorette Gum - BUC Q2H PRN NICOTINE REPLACEMENT RX Multivit/Folic Acid/Iron 1 tab 12/07/16 10:00 12/25/16 10:07 Vitamins (Sjr) - PO 1 tab DAILY JAYSON Administration Pseudoephedrine/Triprolidine 1 combo 12/06/16 15:29 Actifed - PO TID PRN NASAL CONGESTION Quetiapine Fumarate 200 mg 12/21/16 22:00 12/24/16 21:22 Seroquel - PO 200 mg HS JAYSON Administration Thiamine HCl 100 mg 12/06/16 22:00 12/24/16 21:22 Vitamin B1 - PO 100 mg HS JAYSON Administration Current Side Effect: No Lab tests ordered: Yes Lab tests reviewed: Yes Provider note:: Patient has completed this program today. She has met her treatment goals and will continue to address her issues in outpatient treatment at [facility] at [address] [place] [address]. 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 She responded well to Seroquel 200 mg po HS, Buspar 10 mg po BID and Gabapentin 100 mg po TID. Scripts for 30 days supply of these medications have been electronically transmitted to [facility] at [address] [place] [address]. She is stable for discharge today Total face to face time:: 35 Mental Status Exam - Mental Status Exam Alert and Oriented to: Time, Place, Person Cognitive Function: Fair Patient Appearance: Well Groomed Mood: Hopeful, Euthymic Affect: Appropriate Patient Behavior: Cooperative Speech Pattern: Clear Voice Loudness: Normal Thought Process: Intact Thought Disorder: Not Present Suicidal Ideation: Denies Homicidal Ideation: Denies Insight/Judgement: Fair Sleep: Fair Appetite: Good Muscle strength/Tone: Normal Gait/Station: Normal Psychiatric Treatment Plan - Problem List (1) Alcohol dependence with uncomplicated withdrawal Current Visit: Yes (2) Asthma Current Visit: Yes Qualifiers: (3) Opioid dependence on agonist therapy Current Visit: No (4) Nicotine dependence Current Visit: No Qualifiers: Nicotine product type: cigarettes Substance use status: in withdrawal Qualified Code(s): F17.213 - Nicotine dependence, cigarettes, with withdrawal (5) Hepatitis C carrier Current Visit: Yes Initial treatment plan: Patient is discharged today and referred to [facility] for outpatient treatment (6) Cocaine dependence, uncomplicated Current Visit: Yes (7) Substance induced mood disorder Current Visit: Yes Initial treatment plan: Patient is discharge today and referred to [facility] for outpatient treatment
[2016-12-25] MEDS: THIAMINE HCL 100 MG TABLET (FP) PO SCH (21:22)
[2016-12-25] MEDS: QUEtiapine FUMARATE 200 MG TABLET PO SCH (21:22)
[2016-12-26] MEDS ORDERED: METHADONE HCL 40 MG DISPERSABLE TABLET ONE (03:15)
[2016-12-26] MEDS ORDERED: METHADONE HCL 10 MG TABLET ONE (03:15)
[2016-12-26] MEDS: METHADONE 40 MG, METHADONE 10 MG PO SCH (06:30)
[2016-12-26] MEDS: GABAPENTIN 100 MG CAPSULE (FP) PO SCH (06:31)
[2016-12-26 07:09] VITALS: BP 125/81; PULSE 73; TEMP 98.3
[2016-12-26] MEDS: PRENATAL VITAMINS W/ FOLIC ACID TABLET (FP) PO SCH (09:34)
[2016-12-26] MEDS: DOCUSATE SODIUM 100 MG CAPSULE (FP) PO SCH (09:34)
[2016-12-26] MEDS: busPIRone HCL 10 MG TABLET (FP) PO SCH (09:34)
[2016-12-26] MEDS: LIDOCAINE 5% TOPICAL PATCH TP SCH (09:34)
== END 2016-12-26 10:24 | disposition home or self-care (01) | DRG 772 ==
LOC: YASAS 14:42 → Y3E 14:48
PROVIDERS: ADMIT Psychiatry & Neurology Psychiatry; ATTEND Psychiatry & Neurology Psychiatry
PROC: HZ42ZZZ Group Counseling for Substance Abuse Treatment, Cognitive-Behavioral (ICD-10-PCS; principal; 2016-12-26)
DX: F11.20 Opioid dependence, uncomplicated (principal); F10.230 Alcohol dependence with withdrawal, uncomplicated; F14.20 Cocaine dependence, uncomplicated; B18.2 Chronic viral hepatitis C

== ENCOUNTER 2017-04-11 19:53 | Inpatient (IN) | payer OTHER ==
[2017-04-11 20:16] VITALS: BMI 20.7
--- NOTE | 2017-04-11 23:11 | HP ---
CIWA Score - CIWA Score Nausea/Vomitin Muscle Tremors: 2 Anxiety: 3 Agitation: 3 Paroxysmal Sweats: 2 Orientation: 1-Uncertain about Date Tacttile Disturbances: 0-None Auditory Disturbances: 0-None Visual Disturbances: 0-None Headache: 1-Very Mild CIWA-Ar Total Score: 14 Admission ROS BHS - HPI Chief Complaint: WITHDRAWAL SYMPTOMS Allergies/Adverse Reactions: Allergies Allergy/AdvReac Type Severity Reaction Status Date / Time No Known Allergies Allergy Verified 04/11/17 23:20 History of Present Illness: 47 Y.O. WOMAN WITH A HISTORY OF DRUG AND ALCOHOL DEPENDANCE IS HERE SEEKING DETOX. SHE COMPLETED DETOX AND REHAB HERE IN December,. SHE IS CURRENTLY ENROLLED IN A [facility]. Exam Limitations: Physical Impairment (USES A CANE TO AMBULATE) - Ebola screening Have you traveled outside of the country in the last 21 days: No Have you had contact with anyone from an Ebola affected area: No Have you been sick,other than usual withdrawal symptoms: No Do you have a fever: No - Review of Systems Constitutional: Changes in sleep, Weakness EENT: reports: Tearing Respiratory: reports: Shortness of Breath Cardiac: reports: No Symptoms Reported GI: reports: Diarrhea, Abdominal cramping : reports: No Symptoms Reported Musculoskeletal: reports: Joint Stiffness (LEFT KNEE) Integumentary: reports: No Symptoms Reported Neuro: reports: Paresthesia (LEFT KNEE) Endocrine: reports: No Symptoms Reported Hematology: reports: No Symptoms Reported Psychiatric: reports: Judgement Intact, Mood/Affect Appropiate, Anxious, Depressed Other Systems: Reviewed and Negative Patient History - Patient Medical History Hx Anemia: No Hx Asthma: Yes Hx Chronic Obstructive Pulmonary Disease (COPD): No Hx Cancer: No Hx Cardiac Disorders: No Hx Congestive Heart Failure: No Hx Hypertension: No Hx Hypercholesterolemia: No Hx Pacemaker: No HX Cerebrovascular Accident: No Hx Seizures: No Hx Dementia: No Hx Diabetes: No Hx Gastrointestinal Disorders: No Hx Liver Disease: No Hx Genitourinary Disorders: No Hx Sexually Transmitted Disorders: No Hx Renal Disease (ESRD): No Hx Thyroid Disease: No Hx Human Immunodeficiency Virus (HIV): No (last tested 12/25/13) Hx Hepatitis C: Yes (since age of 18 years) Hx Depression: Yes Hx Suicide Attempt: Yes (DENIES S/H IDEATIONS. AGE 12) Hx Bipolar Disorder: No Hx Schizophrenia: Yes - Patient Surgical History Past Surgical History: Yes Hx Abdominal Surgery: Yes (umbillical hernia repair) Hx Section: No Hx Orthopedic Surgery: Yes (total knee replacement in 10/01 at [facility]) Hx Hysterectomy: No Anesthesia Reaction: No - PPD History Previous Implant?: Yes Documented Results: Negative w/proof Date: 08/06/16 Results: 0 PPD to be Administered?: No - Reproductive History Patient is a Female of Child Bearing Age (11 -55 yrs old): Yes Last Menstrual Period: 09/03/12 Patient : No - Smoking Cessation Smoking history: Current every day smoker Have you smoked in the past 12 months: Yes Aproximately how many cigarettes per day: 10 Cigars Per Day: 0 Hx Chewing Tobacco Use: No Initiated information on smoking cessation: Yes 'Breaking Loose' booklet given: 04/11/17 - Substance & Tx. History Hx Alcohol Use: Yes Hx Substance Use: Yes Substance Use Type: Alcohol, Cocaine Hx Substance Use Treatment: Yes (DETOX AND REHAB HERE IN 12/2016; CURRENTLY IN [facility] ) - Substances Abused Alcohol Route: Oral Frequency: Daily Amount used: 1 6 PACK OF BEER Age of first use: 9 Date of Last Use: 04/11/17 Cocaine Route: Smoking Frequency: Daily Amount used: $200 Age of first use: 14 Date of Last Use: 04/11/17 Family Disease History - Family Disease History Family Disease History: Diabetes: Sister, Other: Grandparent (alcohol), Mother ( hypertension) Admission Physical Exam BHS - Vital Signs Vital Signs: Vital Signs - 24 hr 04/11/17 20:12 Temperature 98.8 F Pulse Rate 88 Respiratory 18 Rate Blood Pressure 116/77 - Physical General Appearance: Yes: Thin, Irritable, Anxious HEENTM: Yes: Hearing grossly Normal, Normocephalic, Normal Voice Respiratory: Yes: Chest Non-Tender, Lungs Clear, Normal Breath Sounds, No Respiratory Distress, No Accessory Muscle Use Neck: Yes: No masses,lesions,Nodules, Trachea in good position Breast: Yes: Breast Exam Deferred Cardiology: Yes: Regular Rhythm, Regular Rate Abdominal: Yes: Normal Bowel Sounds, Non Tender, Flat, Soft Genitourinary: Yes: Other (No complaints reported) Back: Yes: Normal Inspection Musculoskeletal: Yes: Joint Stiffness (Left knee) Extremities: Yes: Normal Capillary Refill, Normal Inspection, Non-Tender Neurological: Yes: Fully Oriented, Alert, Normal Response Integumentary: Yes: Within Normal Limits Lymphatic: Yes: Within Normal Limits - Diagnostic (1) Alcohol dependence with uncomplicated withdrawal Current Visit: Yes Status: Chronic (2) Asthma Current Visit: Yes Status: Chronic Qualifiers: (3) Cocaine dependence, uncomplicated Current Visit: Yes Status: Chronic (4) Hepatitis C carrier Current Visit: Yes Status: Chronic (5) Methadone maintenance therapy patient Current Visit: Yes Status: Chronic (6) Nicotine dependence Current Visit: Yes Status: Chronic Qualifiers: Nicotine product type: cigarettes Substance use status: in withdrawal Qualified Code(s): F17.213 - Nicotine dependence, cigarettes, with withdrawal (7) Opioid dependence on agonist therapy Current Visit: No Status: Chronic Cleared for Admission [facility] - Detox or Rehab [facility] Level of Care: Medically Managed Detox Regimen/Protocol: Librium [facility] Breath Alcohol Content Breath Alcohol Content: 0.023 Urine Drug Screen - Results Drug Screen Negative: No Urine Drug Screen Results: VENTURA-Cocaine, MTD-Methadone
[2017-04-12] MEDS ORDERED: MENTHOL/PHENOL 1 EACH UD MM PRN (00:09)
[2017-04-12] MEDS ORDERED: LOPERAMIDE HCL 2 MG CAPSULE PO PRN (00:09)
[2017-04-12] MEDS ORDERED: chlordiazePOXIDE HCL 25 MG CAPSULE PO PRN (00:09)
[2017-04-12] MEDS ORDERED: hydrOXYzine PAMOATE 50 MG CAPSULE (FP) PO PRN (00:09)
[2017-04-12] MEDS ORDERED: P-EPHED 60MG/TRIPROLIDI 2.5MG TABLET PO PRN (00:09)
[2017-04-12] MEDS ORDERED: ACETAMINOPHEN 325 MG TABLET (FP) PO PRN (00:09)
[2017-04-12] MEDS ORDERED: IBUPROFEN 400 MG TABLET (FP) PO PRN (00:09)
[2017-04-12] MEDS ORDERED: chlordiazePOXIDE HCL 25 MG CAPSULE PO ONE (00:09)
[2017-04-12] MEDS ORDERED: MAG HYDROX/AL HYDROX/SIMETH 30 ML UNIT-DOSE CUP PO PRN (00:09)
[2017-04-12] MEDS ORDERED: diphenhydrAMINE HCL 50 MG CAPSULE PO PRN (00:09)
[2017-04-12] MEDS ORDERED: guaiFENesin/D-METHORPHAN HB 10 ML UNIT-DOSE CUPS PO PRN (00:09)
[2017-04-12] MEDS ORDERED: MAGNESIUM CITRATE 300 ML BOTTLE PO PRN (00:09)
[2017-04-12] MEDS ORDERED: MAGNESIUM HYDROX 2400MG/30ML ORAL SUSPENSION 30 ML CUP PO PRN (00:09)
[2017-04-12] MEDS ORDERED: ALBUTEROL SO4 6.7 GM HFA INHALER IH PRN (00:12)
[2017-04-12] MEDS: chlordiazePOXIDE HCL 25 MG CAPSULE PO SCH ×4 (06:09→22:57)
[2017-04-12] MEDS: GABAPENTIN 100 MG CAPSULE (FP) PO SCH ×3 (06:10→22:57)
[2017-04-12] MEDS: PRENATAL VITAMINS W/ FOLIC ACID TABLET (FP) PO SCH (10:22)
[2017-04-12] MEDS ORDERED: METHADONE HCL 10 MG TABLET PO ONE (10:46)
--- NOTE | 2017-04-12 10:57 | HP ---
Psychiatrist Admission - Data Date of interview: 04/12/17 Identifying data: This is the second [facility] admission for this 47 years old single Black female, mother of 2 children, unemployed on SSI, homeless Medical History: Significant for bronchial asthma, peptic ulcer disease, hepatitis C, umbilical hernia and a history of total replacement of right knee/ inguinal herniorraphy. Vital Signs: Vital Signs - 24 hr 04/11/17 04/12/17 04/12/17 20:12 01:48 03:30 Temperature 98.8 F 97.9 F Pulse Rate 88 77 Respiratory 18 18 16 Rate Blood Pressure 116/77 137/91 04/12/17 06:42 Temperature 97.9 F Pulse Rate 71 Respiratory 18 Rate Blood Pressure 139/93 Allergies/Adverse Reactions: Allergies Allergy/AdvReac Type Severity Reaction Status Date / Time No Known Allergies Allergy Verified 04/11/17 23:20 Date of last physical exam: 04/11/17 Concur with the findings of this exam: Yes - Substance Abuse/Tx History Hx Alcohol Use: Yes Hx Substance Use: Yes Substance Use Type: Alcohol (Started drinking alcohol at age 9, consumes 6pk of beer daily. Last drink on 04/11/17), Cocaine (Started smoking crack cocaine at age 14, consumes $100 worth daily. Last smoked on 04/11/17) Hx Substance Use Treatment: Yes (3 previous inpt detox & one inpt rehab @ [facility]) - Admission Criteria Poor recovery environment: Yes Comorbidities: Yes Lacks judgement: Yes Psychiatric Findings - Problem List ([place] 1, 2,3) (1) Alcohol dependence Current Visit: Yes Status: Acute (2) Cocaine dependence, uncomplicated Current Visit: Yes Status: Chronic (3) Opioid dependence on agonist therapy Current Visit: No Status: Chronic (4) Nicotine dependence Current Visit: Yes Status: Chronic Qualifiers: Nicotine product type: cigarettes Substance use status: in withdrawal Qualified Code(s): F17.213 - Nicotine dependence, cigarettes, with withdrawal
[2017-04-12 13:55] LABS: URINE APPEARANCE SLCLOUDY; URINE BILIRUBIN NEGATIVE (NEGATIVE); URINE BLOOD 2+ (NEGATIVE); URINE COLOR YELLOW; URINE GLUCOSE (UA) NEGATIVE (NEGATIVE); URINE KETONE NEGATIVE (NEGATIVE); URINE LEUK ESTERASE TRACE (NEGATIVE); URINE NITRITE NEGATIVE (NEGATIVE); URINE PROTEIN NEGATIVE (NEGATIVE); URINE UROBILINOGEN 4.0 E.U/dl mg/dL (0.2-1.0)
[2017-04-12 14:38] LABS: CALCIUM OXALATE CRYSTALS FEW /hpf (NONE SEEN); URINE MUCUS RARE; URINE RBC <1 /hpf (0-3); URINE WBC 4 /hpf (3-5)
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
[2017-04-12] MEDS: THIAMINE HCL 100 MG TABLET (FP) PO SCH (22:57)
[2017-04-12] MEDS: busPIRone HCL 10 MG TABLET (FP) PO SCH (22:57)
[2017-04-12] MEDS: QUEtiapine FUMARATE 200 MG TABLET PO SCH (22:57)
[2017-04-13] MEDS ORDERED: METHADONE HCL 40 MG DISPERSABLE TABLET PO SCH (06:00)
[2017-04-13] MEDS: GABAPENTIN 100 MG CAPSULE (FP) PO SCH ×3 (06:30→22:35)
[2017-04-13] MEDS: chlordiazePOXIDE HCL 25 MG CAPSULE PO SCH ×4 (06:30→22:35)
[2017-04-13 10:27] LABS: ALBUMIN 2.8 g/dl (3.4-5.0); ANION GAP 6 (8-16); CO2 29 mmol/L (21-32); GLUCOSE,RANDOM 92 mg/dL (74-106)
[2017-04-13 10:33] LABS: ALK PHOS 112 U/L (45-117); BILIRUBIN,TOTAL 0.5 mg/dL (0.2-1.0); CREATININE 0.7 mg/dL (0.55-1.02); SGOT/AST 21 U/L (15-37); SGPT/ALT 17 U/L (12-78); TOT PROT 7.3 g/dl (6.4-8.2)
[2017-04-13 10:46] LABS: MCH 30.2 pg (25.7-33.7); MCHC 32.7 g/dl (32.0-36.0); MEAN CELL VOLUME 92.6 fl (80-96); MEAN PLT VOLUME 9.6 fl (7.5-11.1); PLATELET COUNT 235 K/MM3 (134-434); RDW 15.7 % (11.6-15.6); WHITE BLOOD COUNT 5.8 K/mm3 (4.0-10.0)
[2017-04-13] MEDS: QUEtiapine FUMARATE 50 MG TABLET PO SCH (11:33)
[2017-04-13] MEDS: ESCITALOPRAM OXALATE 10 MG TABLET (FP) PO SCH (11:33)
[2017-04-13] MEDS: busPIRone HCL 10 MG TABLET (FP) PO SCH (11:34)
[2017-04-13] MEDS: PRENATAL VITAMINS W/ FOLIC ACID TABLET (FP) PO SCH (11:35)
--- NOTE | 2017-04-13 12:01 | EKG ---
Test Reason : Blood Pressure : / mmHG Vent. Rate : 062 BPM Atrial Rate : 062 BPM P-R Int : 140 ms QRS Dur : 080 ms QT Int : 414 ms P-R-T Axes : 069 047 044 degrees QTc Int : 420 ms NORMAL SINUS RHYTHM NORMAL ECG WHEN COMPARED WITH ECG OF 02-DEC-2016 13:56, NO SIGNIFICANT CHANGE WAS FOUND Confirmed by LETICIA LANDAVERDE MD ([id number]) on 04/13/2017 12:00:27 PM Referred By: Confirmed By:LETICIA LANDAVERDE MD
--- NOTE | 2017-04-13 13:44 | PN ---
S CIWA - CIWA Score Nausea/Vomitin Muscle Tremors: 4-Moderate,w/Arms Extend Anxiety: 3 Agitation: 1-Slight > Activity Paroxysmal Sweats: 3 Orientation: 2-Disoriented Date<2 days Tacttile Disturbances: 2-Mild Itch/Numbness/Burn Auditory Disturbances: 0-None Visual Disturbances: 0-None Headache: 0-None Present CIWA-Ar Total Score: 20 BHS Progress Note (SOAP) Subjective: Interrupted sleep, Vomiting, Sweating, Tremors, Stomach Cramping. Objective: PT. A & O X 2 (DISORIENTED ABOUT DAY / DATE). NO ACUTE DISTRESS. PT. DENIES CHEST PAIN. 04/13/17 13:42 Vital Signs Temperature 98.4 F 04/13/17 10:00 Pulse Rate 72 04/13/17 10:00 Respiratory Rate 18 04/13/17 10:00 Blood Pressure 97/60 04/13/17 10:00 O2 Sat by Pulse Oximetry (%) Laboratory Tests 04/12/17 04/13/17 04/13/17 10:05 06:30 06:30 WBC 5.8 RBC 4.13 Hgb 12.5 Hct 38.3 MCV 92.6 MCH 30.2 MCHC 32.7 RDW 15.7 H Plt Count 235 MPV 9.6 Sodium 142 Potassium 3.9 Chloride 107 D Carbon Dioxide 29 Anion Gap 6 L BUN 17 Creatinine 0.7 D Creat Clearance w eGFR > 60 Random Glucose 92 Calcium 9.0 Total Bilirubin 0.5 AST 21 ALT 17 Alkaline Phosphatase 112 Total Protein 7.3 Albumin 2.8 L Urine Color Yellow Urine Appearance Slcloudy Urine pH 7.0 Ur Specific [place] 1.020 Urine Protein Negative Urine Glucose (UA) Negative Urine Ketones Negative Urine Blood 2+ H Urine Nitrite Negative Urine Bilirubin Negative Urine Urobilinogen 4.0 e.u/dl H Ur Leukocyte Esterase Trace Urine RBC <1 Urine WBC 4 Ur Epithelial Cells Many Calcium Oxalate Crystal Few Urine Mucus Rare RPR Titer 04/13/17 06:30 WBC RBC Hgb Hct MCV MCH MCHC RDW Plt Count MPV Sodium Potassium Chloride Carbon Dioxide Anion Gap BUN Creatinine Creat Clearance w eGFR Random Glucose Calcium Total Bilirubin AST ALT Alkaline Phosphatase Total Protein Albumin Urine Color Urine Appearance Urine pH Ur Specific [place] Urine Protein Urine Glucose (UA) Urine Ketones Urine Blood Urine Nitrite Urine Bilirubin Urine Urobilinogen Ur Leukocyte Esterase Urine RBC Urine WBC Ur Epithelial Cells Calcium Oxalate Crystal Urine Mucus RPR Titer Nonreactive LABS NOTED. Assessment: 04/13/17 13:42 WITHDRAWAL SYMPTOMS. Plan: CONTINUE DETOX.
--- NOTE | 2017-04-13 14:33 | PN ---
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 Seroquel 50mg po qhs. Buspar 10mg po bid. Lexapro 10mg poqd Current Medications: Active Medications Generic Name Dose Route Start Last Admin Trade Name Freq PRN Reason Stop Dose Admin Acetaminophen 650 mg 04/12/17 00:09 Tylenol - PO Q4H PRN FEVER OR PAIN Al Hydroxide/Mg Hydroxide 30 ml 04/12/17 00:09 Mylanta Oral Suspension - PO Q6H PRN DYSPEPSIA Albuterol Sulfate 2 puff 04/12/17 00:12 Ventolin Hfa Inhaler - IH Q4H PRN SHORT OF BREATH/WHEEZING Buspirone HCl 10 mg 04/12/17 22:00 04/13/17 11:34 Buspar - PO 10 mg BID JAYSON Administration Chlordiazepoxide HCl 10 mg 04/15/17 05:00 Librium - PO 04/15/17 23:01 [id number] JAYSON Chlordiazepoxide HCl 25 mg 04/12/17 00:09 Librium - PO 04/15/17 00:08 Q4H PRN WITHDRAWAL(CONT SUBST) Chlordiazepoxide HCl 25 mg 04/13/17 05:00 04/13/17 11:34 Librium - PO 04/13/17 23:01 Not Given [id number] JAYSON Chlordiazepoxide HCl 15 mg 04/14/17 05:00 Librium - PO 04/14/17 23:01 [id number] JAYSON Diphenhydramine HCl 50 mg 04/12/17 00:09 Benadryl - PO HSMR1 PRN INSOMNIA Escitalopram Oxalate 10 mg 04/13/17 10:00 04/13/17 11:33 Lexapro - PO 10 mg DAILY JAYSON Administration Eucalyptus/Menthol/Phenol/Sorbitol 1 each 04/12/17 00:09 Cepastat Lozenge - MM Q4H PRN SORE THROAT Gabapentin 100 mg 04/12/17 06:00 04/13/17 06:30 Neurontin - PO 100 mg TID JAYSON Administration Guaifenesin 10 ml 04/12/17 00:09 Robitussin Dm - PO Q6H PRN COUGH Hydroxyzine Pamoate 50 mg 04/12/17 00:09 Vistaril - PO Q4H PRN AGITATION Ibuprofen 400 mg 04/12/17 00:09 Motrin - PO Q6H PRN SEVERE PAIN Loperamide HCl 4 mg 04/12/17 00:09 Imodium - PO Q6H PRN DIARRHEA Magnesium Citrate 300 ml 04/12/17 00:09 Citroma - PO Q48H PRN CONSTIPATION Magnesium Hydroxide 30 ml 04/12/17 00:09 Milk Of Magnesia - PO DAILY PRN CONSTIPATION Methadone HCl 40 mg 04/13/17 06:00 04/13/17 06:30 Dolophine - PO 04/14/17 05:59 40 mg DAILY@0600 [facility] Administration Methadone HCl 40 mg/ Methadone 50 mg 04/14/17 06:00 HCl 10 mg PO 04/19/17 05:59 DAILY@0600 [facility] Multivit/Folic Acid/Iron 1 tab 04/12/17 10:00 04/13/17 11:35 Vitamins (Sjr) - PO 1 tab DAILY [facility] Administration Pseudoephedrine/Triprolidine 1 combo 04/12/17 00:09 Actifed - PO TID PRN NASAL CONGESTION Quetiapine Fumarate 50 mg 04/13/17 10:00 04/13/17 11:33 Seroquel - PO Not Given DAILY [facility] Quetiapine Fumarate 200 mg 04/12/17 22:00 04/12/17 22:57 Seroquel - PO 200 mg HS JAYSON Administration Thiamine HCl 100 mg 04/12/17 22:00 04/12/17 22:57 Vitamin B1 - PO 100 mg HS JAYSON Administration Medication(s) Change(s): Hold psychiatric medications intil psychiatric evaluation in am 04/14/17 Mental Status Exam - Mental Status Exam Alert and Oriented to: Person Cognitive Function: Fair Patient Appearance: Unkempt Mood: Sad, Withdrawn Affect: Flat Patient Behavior: Sedated, Cooperative Speech Pattern: Delayed Voice Loudness: Moderately Soft/Quiet Thought Process: Goal Oriented Thought Disorder: Being Controlled Hallucinations: Denies Suicidal Ideation: Denies Homicidal Ideation: Denies Insight/Judgement: Fair Sleep: Difficulty falling asleep Appetite: Weight loss Muscle strength/Tone: Moderate Hypotonicity Gait/Station: Shuffling Additional Comments: Seroquel 200mg po qhs. Seroquel 50mg po qhs. Buspar 10mg po bid. Lexapro 10mg poqd Psychiatric Treatment Plan - Problem List (1) Alcohol dependence Current Visit: Yes (2) Alcohol dependence with uncomplicated withdrawal Current Visit: Yes (3) Cocaine dependence, uncomplicated Current Visit: Yes (4) Nicotine dependence Current Visit: Yes Qualifiers: Nicotine product type: cigarettes Substance use status: in withdrawal Qualified Code(s): F17.213 - Nicotine dependence, cigarettes, with withdrawal (5) Opioid dependence on agonist therapy Current Visit: Yes (6) Methadone maintenance therapy patient Current Visit: Yes (7) Post traumatic stress disorder (PTSD) Current Visit: Yes (8) Substance induced mood disorder Current Visit: No Initial treatment plan: Hold psychiatric orders untill tomorrow evaluation in am
[2017-04-13] MEDS: THIAMINE HCL 100 MG TABLET (FP) PO SCH (22:35)
[2017-04-14] MEDS ORDERED: METHADONE HCL 40 MG DISPERSABLE TABLET ONE (05:56)
[2017-04-14] MEDS ORDERED: METHADONE HCL 10 MG TABLET ONE (05:56)
[2017-04-14] MEDS ORDERED: METHADONE HCL 10 MG TABLET PO SCH (06:00)
[2017-04-14] MEDS: METHADONE 40 MG, METHADONE 10 MG PO SCH (07:27)
[2017-04-14] MEDS: GABAPENTIN 100 MG CAPSULE (FP) PO SCH ×3 (07:28→22:34)
[2017-04-14] MEDS: chlordiazePOXIDE 5 MG CAPSULE PO SCH ×4 (07:28→22:33)
[2017-04-14] MEDS: QUEtiapine FUMARATE 50 MG TABLET PO SCH (10:46)
[2017-04-14] MEDS: PRENATAL VITAMINS W/ FOLIC ACID TABLET (FP) PO SCH (10:46)
[2017-04-14] MEDS: busPIRone HCL 10 MG TABLET (FP) PO SCH ×2 (10:46→22:33)
[2017-04-14] MEDS: ESCITALOPRAM OXALATE 10 MG TABLET (FP) PO SCH (10:46)
--- NOTE | 2017-04-14 12:40 | PN ---
[facility] CIWA - CIWA Score Nausea/Vomitin-No Nausea/No Vomiting Muscle Tremors: 3 Anxiety: 3 Agitation: 4-Moderately Restless Paroxysmal Sweats: 3 Orientation: 0-Oriented Tacttile Disturbances: 0-None Auditory Disturbances: 0-None Visual Disturbances: 0-None Headache: 0-None Present CIWA-Ar Total Score: 13 BHS Progress Note (SOAP) Subjective: sweats interrupted sleep body aches groggy Objective: 04/14/17 12:39 Vital Signs Temperature 96.1 F L 04/14/17 10:00 Pulse Rate 66 04/14/17 10:00 Respiratory Rate 18 04/14/17 10:00 Blood Pressure 113/61 04/14/17 10:00 O2 Sat by Pulse Oximetry (%) Laboratory Tests 04/12/17 04/13/17 04/13/17 10:05 06:30 06:30 WBC 5.8 RBC 4.13 Hgb 12.5 Hct 38.3 MCV 92.6 MCH 30.2 MCHC 32.7 RDW 15.7 H Plt Count 235 MPV 9.6 Sodium 142 Potassium 3.9 Chloride 107 D Carbon Dioxide 29 Anion Gap 6 L BUN 17 Creatinine 0.7 D Creat Clearance w eGFR > 60 Random Glucose 92 Calcium 9.0 Total Bilirubin 0.5 AST 21 ALT 17 Alkaline Phosphatase 112 Total Protein 7.3 Albumin 2.8 L Urine Color Yellow Urine Appearance Slcloudy Urine pH 7.0 Ur Specific [place] 1.020 Urine Protein Negative Urine Glucose (UA) Negative Urine Ketones Negative Urine Blood 2+ H Urine Nitrite Negative Urine Bilirubin Negative Urine Urobilinogen 4.0 e.u/dl H Ur Leukocyte Esterase Trace Urine RBC <1 Urine WBC 4 Ur Epithelial Cells Many Calcium Oxalate Crystal Few Urine Mucus Rare RPR Titer 04/13/17 06:30 WBC RBC Hgb Hct MCV MCH MCHC RDW Plt Count MPV Sodium Potassium Chloride Carbon Dioxide Anion Gap BUN Creatinine Creat Clearance w eGFR Random Glucose Calcium Total Bilirubin AST ALT Alkaline Phosphatase Total Protein Albumin Urine Color Urine Appearance Urine pH Ur Specific [place] Urine Protein Urine Glucose (UA) Urine Ketones Urine Blood Urine Nitrite Urine Bilirubin Urine Urobilinogen Ur Leukocyte Esterase Urine RBC Urine WBC Ur Epithelial Cells Calcium Oxalate Crystal Urine Mucus RPR Titer Nonreactive awake/alert ambulating no acute distress Assessment: 04/14/17 12:40 withdrawal sx Plan: continue detox increase fluids
[2017-04-14] MEDS: QUEtiapine FUMARATE 200 MG TABLET PO SCH ×2 (22:34→23:54)
[2017-04-14] MEDS: THIAMINE HCL 100 MG TABLET (FP) PO SCH (22:34)
[2017-04-15] MEDS ORDERED: METHADONE HCL 10 MG TABLET ONE (05:01)
[2017-04-15] MEDS ORDERED: METHADONE HCL 40 MG DISPERSABLE TABLET ONE (05:01)
[2017-04-15] MEDS: chlordiazePOXIDE HCL 10 MG CAPSULE PO SCH ×4 (09:19→23:04)
[2017-04-15] MEDS: GABAPENTIN 100 MG CAPSULE (FP) PO SCH ×3 (09:20→23:05)
[2017-04-15] MEDS: METHADONE 40 MG, METHADONE 10 MG PO SCH (10:57)
[2017-04-15] MEDS: PRENATAL VITAMINS W/ FOLIC ACID TABLET (FP) PO SCH (10:58)
[2017-04-15] MEDS: busPIRone HCL 10 MG TABLET (FP) PO SCH ×2 (10:58→23:04)
[2017-04-15] MEDS: ESCITALOPRAM OXALATE 10 MG TABLET (FP) PO SCH (10:59)
[2017-04-15] MEDS: QUEtiapine FUMARATE 50 MG TABLET PO SCH (11:02)
--- NOTE | 2017-04-15 12:49 | PN ---
BHS Progress Note (SOAP) Subjective: Sweating,interrupted sleep,restless Objective: 04/15/17 12:43 Vital Signs - 8 hr 04/15/17 04/15/17 06:00 10:02 Temperature 97.2 F L 97.7 F Pulse Rate 72 85 Respiratory 16 18 Rate Blood Pressure 105/59 123/66 Laboratory Last Values WBC 5.8 K/mm3 (4.0-10.0) 04/13/17 06:30 RBC 4.13 M/mm3 (3.60-5.2) 04/13/17 06:30 Hgb 12.5 GM/dL (10.7-15.3) 04/13/17 06:30 Hct 38.3 % (32.4-45.2) 04/13/17 06:30 MCV 92.6 fl (80-96) 04/13/17 06:30 MCH 30.2 pg (25.7-33.7) 04/13/17 06:30 MCHC 32.7 g/dl (32.0-36.0) 04/13/17 06:30 RDW 15.7 % (11.6-15.6) H 04/13/17 06:30 Plt Count 235 K/MM3 (134-434) 04/13/17 06:30 MPV 9.6 fl (7.5-11.1) 04/13/17 06:30 Sodium 142 mmol/L (136-145) 04/13/17 06:30 Potassium 3.9 mmol/L (3.5-5.1) 04/13/17 06:30 Chloride 107 mmol/L (98-107) D 04/13/17 06:30 Carbon Dioxide 29 mmol/L (21-32) 04/13/17 06:30 Anion Gap 6 (8-16) L 04/13/17 06:30 BUN 17 mg/dL (7-18) 04/13/17 06:30 Creatinine 0.7 mg/dL (0.55-1.02) D 04/13/17 06:30 Creat Clearance w eGFR > 60 (>60) 04/13/17 06:30 Random Glucose 92 mg/dL (74-106) 04/13/17 06:30 Calcium 9.0 mg/dL (8.5-10.1) 04/13/17 06:30 Total Bilirubin 0.5 mg/dL (0.2-1.0) 04/13/17 06:30 AST 21 U/L (15-37) 04/13/17 06:30 ALT 17 U/L (12-78) 04/13/17 06:30 Alkaline Phosphatase 112 U/L (45-117) 04/13/17 06:30 Total Protein 7.3 g/dl (6.4-8.2) 04/13/17 06:30 Albumin 2.8 g/dl (3.4-5.0) L 04/13/17 06:30 Urine Color Yellow 04/12/17 10:05 Urine Appearance Slcloudy 04/12/17 10:05 Urine pH 7.0 (5.0-8.0) 04/12/17 10:05 Ur Specific [place] 1.020 (1.005-1.025) 04/12/17 10:05 Urine Protein Negative (NEGATIVE) 04/12/17 10:05 Urine Glucose (UA) Negative (NEGATIVE) 04/12/17 10:05 Urine Ketones Negative (NEGATIVE) 04/12/17 10:05 Urine Blood 2+ (NEGATIVE) H 04/12/17 10:05 Urine Nitrite Negative (NEGATIVE) 04/12/17 10:05 Urine Bilirubin Negative (NEGATIVE) 04/12/17 10:05 Urine Urobilinogen 4.0 e.u/dl mg/dL (0.2-1.0) H 04/12/17 10:05 Ur Leukocyte Esterase Trace (NEGATIVE) 04/12/17 10:05 Urine RBC <1 /hpf (0-3) 04/12/17 10:05 Urine WBC 4 /hpf (3-5) 04/12/17 10:05 Ur Epithelial Cells Many /hpf (FEW) 04/12/17 10:05 Calcium Oxalate Crystal Few /hpf (NONE SEEN) 04/12/17 10:05 Urine Mucus Rare 04/12/17 10:05 RPR Titer Nonreactive (NONREACTIVE) 04/13/17 06:30 labs noted Assessment: 04/15/17 12:48 Withdrawal sx. Plan: continue detox
[2017-04-15] MEDS ORDERED: QUEtiapine FUMARATE 100 MG TABLET (FP) PO SCH (22:00)
[2017-04-15] MEDS: THIAMINE HCL 100 MG TABLET (FP) PO SCH (23:05)
[2017-04-16] MEDS ORDERED: METHADONE HCL 10 MG TABLET ONE (05:52)
[2017-04-16] MEDS ORDERED: METHADONE HCL 40 MG DISPERSABLE TABLET ONE (05:52)
[2017-04-16] MEDS: METHADONE 40 MG, METHADONE 10 MG PO SCH (05:54)
--- NOTE | 2017-04-16 10:26 | DS ---
[facility] Detox Discharge Summary Admission Date: 04/12/17 Discharge Date: 04/16/17 - History Present History: Alcohol Dependence, Cocaine Dependence, MMTP Pertinent Past History: Hep C Asthma - Physical Exam Results Vital Signs: Vital Signs Temperature 98.1 F 04/16/17 06:00 Pulse Rate 78 04/16/17 06:00 Respiratory Rate 16 04/16/17 06:00 Blood Pressure 140/73 04/16/17 06:00 O2 Sat by Pulse Oximetry (%) Pertinent Admission Physical Exam Findings: Withdrawal sx. Laboratory Last Values WBC 5.8 K/mm3 (4.0-10.0) 04/13/17 06:30 RBC 4.13 M/mm3 (3.60-5.2) 04/13/17 06:30 Hgb 12.5 GM/dL (10.7-15.3) 04/13/17 06:30 Hct 38.3 % (32.4-45.2) 04/13/17 06:30 MCV 92.6 fl (80-96) 04/13/17 06:30 MCH 30.2 pg (25.7-33.7) 04/13/17 06:30 MCHC 32.7 g/dl (32.0-36.0) 04/13/17 06:30 RDW 15.7 % (11.6-15.6) H 04/13/17 06:30 Plt Count 235 K/MM3 (134-434) 04/13/17 06:30 MPV 9.6 fl (7.5-11.1) 04/13/17 06:30 Sodium 142 mmol/L (136-145) 04/13/17 06:30 Potassium 3.9 mmol/L (3.5-5.1) 04/13/17 06:30 Chloride 107 mmol/L (98-107) D 04/13/17 06:30 Carbon Dioxide 29 mmol/L (21-32) 04/13/17 06:30 Anion Gap 6 (8-16) L 04/13/17 06:30 BUN 17 mg/dL (7-18) 04/13/17 06:30 Creatinine 0.7 mg/dL (0.55-1.02) D 04/13/17 06:30 Creat Clearance w eGFR > 60 (>60) 04/13/17 06:30 Random Glucose 92 mg/dL (74-106) 04/13/17 06:30 Calcium 9.0 mg/dL (8.5-10.1) 04/13/17 06:30 Total Bilirubin 0.5 mg/dL (0.2-1.0) 04/13/17 06:30 AST 21 U/L (15-37) 04/13/17 06:30 ALT 17 U/L (12-78) 04/13/17 06:30 Alkaline Phosphatase 112 U/L (45-117) 04/13/17 06:30 Total Protein 7.3 g/dl (6.4-8.2) 04/13/17 06:30 Albumin 2.8 g/dl (3.4-5.0) L 04/13/17 06:30 Urine Color Yellow 04/12/17 10:05 Urine Appearance Slcloudy 04/12/17 10:05 Urine pH 7.0 (5.0-8.0) 04/12/17 10:05 Ur Specific [place] 1.020 (1.005-1.025) 04/12/17 10:05 Urine Protein Negative (NEGATIVE) 04/12/17 10:05 Urine Glucose (UA) Negative (NEGATIVE) 04/12/17 10:05 Urine Ketones Negative (NEGATIVE) 04/12/17 10:05 Urine Blood 2+ (NEGATIVE) H 04/12/17 10:05 Urine Nitrite Negative (NEGATIVE) 04/12/17 10:05 Urine Bilirubin Negative (NEGATIVE) 04/12/17 10:05 Urine Urobilinogen 4.0 e.u/dl mg/dL (0.2-1.0) H 04/12/17 10:05 Ur Leukocyte Esterase Trace (NEGATIVE) 04/12/17 10:05 Urine RBC <1 /hpf (0-3) 04/12/17 10:05 Urine WBC 4 /hpf (3-5) 04/12/17 10:05 Ur Epithelial Cells Many /hpf (FEW) 04/12/17 10:05 Calcium Oxalate Crystal Few /hpf (NONE SEEN) 04/12/17 10:05 Urine Mucus Rare 04/12/17 10:05 RPR Titer Nonreactive (NONREACTIVE) 04/13/17 06:30 labs noted - Treatment Hospital Course: Detox Protocol Followed, Detoxed Safely, Responded well, Discharged Condition Good, Rehab Referral Accepted Patient has Accepted a Rehab Referral to: [facility] - Medication Discharge Medications: Ambulatory Orders Quetiapine Fumarate [Seroquel -] 50 mg PO DAILY 12/25/13 Zolpidem Tartrate [Ambien] 10 mg PO HS 12/25/13 Quetiapine Fumarate [Seroquel -] 400 mg PO HS 08/04/16 Albuterol Sulfate [Proair Respiclick] 90 mcg IH PRN #1 [email or web address] 08/09/16 Methadone [Dolophine -] 50 mg PO DAILY 12/02/16 Albuterol Sulfate Inhaler - [Ventolin HFA Inhaler -] 2 puff IH Q4H PRN #1 inhaler 12/06/16 Buspirone HCl [Buspar -] 10 mg PO BID #60 tab 12/23/16 Gabapentin [Neurontin -] 100 mg PO TID #90 capsule MDD 300 mg 12/23/16 - Diagnosis (1) Alcohol dependence with uncomplicated withdrawal Current Visit: Yes Status: Acute (2) Cocaine dependence, uncomplicated Current Visit: Yes Status: Acute (3) Nicotine dependence Current Visit: Yes Status: Acute Qualifiers: Nicotine product type: cigarettes Substance use status: in withdrawal Qualified Code(s): F17.213 - Nicotine dependence, cigarettes, with withdrawal (4) Opioid dependence on agonist therapy Current Visit: Yes Status: Acute (5) Asthma Current Visit: Yes Status: Chronic Qualifiers: Asthma severity: mild intermittent Asthma complication type: uncomplicated Qualified Code(s): J45.20 - Mild intermittent asthma, uncomplicated (6) Hepatitis C carrier Current Visit: Yes Status: Chronic (7) Insomnia Current Visit: Yes Status: Chronic Qualifiers: Insomnia type: unspecified Qualified Code(s): G47.00 - Insomnia, unspecified (8) Post traumatic stress disorder (PTSD) Current Visit: Yes Status: Chronic - AMA Did Patient Leave Against Medical Advice: No
[2017-04-16 11:36] VITALS: BP 108/51; PULSE 64; TEMP 98.2
== END 2017-04-16 11:36 | disposition home or self-care (01) | DRG 773 ==
LOC: YASAS 19:53 → Y6N 23:16 → UNDOADMIN 23:16 → Y3E 04-12 00:21 → Y6N 04-12 12:55
PROVIDERS: ADMIT Internal Medicine; ATTEND Internal Medicine Addiction Medicine
PROC: HZ2ZZZZ Detoxification Services for Substance Abuse Treatment (ICD-10-PCS; principal; 2017-04-16)
DX: F11.20 Opioid dependence, uncomplicated (principal); F10.230 Alcohol dependence with withdrawal, uncomplicated; F14.20 Cocaine dependence, uncomplicated; F17.210 Nicotine dependence, cigarettes, uncomplicated; F19.24 Other psychoactive substance dependence with psychoactive substance-induced mood disorder; F33.9 Major depressive disorder, recurrent, unspecified; F25.9 Schizoaffective disorder, unspecified; F43.10 Post-traumatic stress disorder, unspecified; G47.00 Insomnia, unspecified; B18.2 Chronic viral hepatitis C; J45.20 Mild intermittent asthma, uncomplicated
CPT/HCPCS: 36415; 80053; 81003; 81015; 85027; 86593; 93005; 93010

== ENCOUNTER 2017-07-02 15:28 | Inpatient (IN) | payer OTHER ==
[2017-07-02 16:03] VITALS: BMI 21.2
--- NOTE | 2017-07-02 16:46 | HP ---
CIWA Score - CIWA Score Nausea/Vomitin Muscle Tremors: 3 Anxiety: 3 Agitation: 3 Paroxysmal Sweats: 2 Orientation: 0-Oriented Tacttile Disturbances: 2-Mild Itch/Numbness/Burn Auditory Disturbances: 2-Mild Harshness/Frighten Visual Disturbances: 1-Very Mild Sensitivity Headache: 2-Mild CIWA-Ar Total Score: 21 Admission ROS BHS - HPI Chief Complaint: i need help to stop drinking alcohol and cocaine Allergies/Adverse Reactions: Allergies Allergy/AdvReac Type Severity Reaction Status Date / Time No Known Allergies Allergy Verified 04/11/17 23:20 History of Present Illness: this 47 years old black femae with alcohol and cocaine dependence,seeking detox, last treatment in 04/12/17 to 04/16.17 mmtp 60 mgs/day,last mediated today, s/p multiple surgery to left knee,now ambulate with cane anxiety,depression,ptsd nicotine dependence longest period of sobriety 3 and a half years - Ebola screening Have you traveled outside of the country in the last 21 days: No Have you had contact with anyone from an Ebola affected area: No Have you been sick,other than usual withdrawal symptoms: No Do you have a fever: No - Review of Systems Constitutional: Loss of Appetite, Malaise, Night Sweats, Changes in sleep, Weakness, Unintentional Wgt. Loss EENT: reports: Nose Congestion Respiratory: reports: No Symptoms reported (asthma), Other Cardiac: reports: No Symptoms Reported GI: reports: Diarrhea, Nausea, Abdominal cramping : reports: No Symptoms Reported Musculoskeletal: reports: Back Pain, Joint Pain (s/p mulitple surgery left knee) , Muscle Pain Integumentary: reports: Dryness Neuro: reports: Headache, Tremors Endocrine: reports: No Symptoms Reported Hematology: reports: No Symptoms Reported Psychiatric: reports: No Sypmtoms Reported, Judgement Intact, Mood/Affect Appropiate, Orientated x3, Anxious, Depressed Patient History - Patient Medical History Hx Anemia: No Hx Asthma: Yes (on albuterol inhaler) Hx Chronic Obstructive Pulmonary Disease (COPD): No Hx Cancer: No Hx Cardiac Disorders: No Hx Congestive Heart Failure: No Hx Hypertension: No Hx Hypercholesterolemia: No Hx Pacemaker: No HX Cerebrovascular Accident: No Hx Seizures: No Hx Dementia: No Hx Diabetes: No Hx Gastrointestinal Disorders: No Hx Liver Disease: No Hx Genitourinary Disorders: No Hx Sexually Transmitted Disorders: No Hx Renal Disease (ESRD): No Hx Thyroid Disease: No Hx Human Immunodeficiency Virus (HIV): No (last 04/03 negative) Hx Hepatitis C: Yes (since age of 18 years) Hx Depression: Yes (anxiety) Hx Suicide Attempt: No Hx Bipolar Disorder: No Hx Schizophrenia: No Other Medical History: no suicidal,no homicidal,ambualtion witn cane s/p multiple surgery left kne - Patient Surgical History Past Surgical History: Yes Hx Neurologic Surgery: No Hx Cataract Extraction: No Hx Cardiac Surgery: No Hx Lung Surgery: No Hx Breast Surgery: No Hx Breast Biopsy: No Hx Abdominal Surgery: Yes (umbillical hernia repair) Hx Appendectomy: No Hx Cholecystectomy: No Hx Genitourinary Surgery: No Hx Section: No Hx Orthopedic Surgery: Yes (total knee replacement in 10/01 at [facility]) Hx Hysterectomy: No Anesthesia Reaction: No - PPD History Previous Implant?: Yes Documented Results: Negative w/proof Implanted On Prior [facility] Admission?: Yes Date: 08/06/16 Results: 0 PPD to be Administered?: No - Reproductive History Patient is a Female of Child Bearing Age (11 -55 yrs old): Yes Last Menstrual Period: 09/03/12 Patient : No - Smoking Cessation Smoking history: Current every day smoker Have you smoked in the past 12 months: Yes Aproximately how many cigarettes per day: 10 Cigars Per Day: 0 Hx Chewing Tobacco Use: No Initiated information on smoking cessation: Yes 'Breaking Loose' booklet given: 07/02/17 - Substance & Tx. History Hx Alcohol Use: Yes Hx Substance Use: Yes Substance Use Type: Alcohol, Cocaine Hx Substance Use Treatment: Yes ([facility] 04/12/17 to 04/16/17) - Substances Abused Alcohol Route: Oral Frequency: Daily Amount used: vodka(1-2 pints)beer(4-6 cans-24 OZ CANS) Age of first use: 11 Date of Last Use: 07/02/17 Cocaine Route: Smoking Frequency: Daily Amount used: $200 Age of first use: 13 Date of Last Use: 07/02/17 Family Disease History - Family Disease History Family Disease History: Diabetes: Sister, Other: Grandparent (alcohol), Mother ( hypertension) Admission Physical Exam BHS - Vital Signs Vital Signs: Vital Signs - 24 hr 07/02/17 16:01 Temperature 98.1 F Pulse Rate 63 Respiratory 18 Rate Blood Pressure 115/67 - Physical General Appearance: Yes: Moderate Distress, Tremorous, Irritable, Sweating, Anxious HEENTM: Yes: Normal ENT Inspection, [place], Pharynx Normal Respiratory: Yes: Lungs Clear, Normal Breath Sounds, No Respiratory Distress Neck: Yes: No masses,lesions,Nodules, Supple, Trachea in good position Breast: Yes: Breast Exam Deferred Cardiology: Yes: Within Normal Limits, Regular Rhythm, Regular Rate, S1, S2 Abdominal: Yes: Within Normal Limits, Normal Bowel Sounds, Non Tender, Flat, Soft Genitourinary: Yes: Within Normal Limits Back: Yes: Muscle Spasm Musculoskeletal: Yes: Back pain, Joint Stiffness (s/p multiple surgery of left knee with left knee replacement,removal of prosthesis,fusion of left knee ambulation with cane), Muscle Pain Extremities: Yes: Other (s/p knee surgery as mentiooned above) Integumentary: Yes: Dry Lymphatic: Yes: Within Normal Limits - Diagnostic (1) Alcohol dependence with uncomplicated withdrawal Current Visit: No Status: Acute (2) Cocaine dependence, uncomplicated Current Visit: No Status: Acute (3) Nicotine dependence Current Visit: No Status: Acute Qualifiers: Nicotine product type: cigarettes Substance use status: in withdrawal Qualified Code(s): F17.213 - Nicotine dependence, cigarettes, with withdrawal; F17.213 - Nicotine dependence, cigarettes, with withdrawal (4) Opioid dependence on agonist therapy Current Visit: No Status: Acute (5) Asthma Current Visit: No Status: Chronic Qualifiers: Asthma severity: mild intermittent Asthma complication type: uncomplicated (6) Depression Current Visit: No Status: Chronic Qualifiers: Depression Type: unspecified Qualified Code(s): F32.9 - Major depressive disorder, single episode, unspecified; F32.9 - Major depressive disorder, single episode, unspecified; F32.9 - Major depressive disorder, single episode, unspecified (7) Hepatitis C carrier Current Visit: No Status: Chronic (8) Methadone maintenance therapy patient Current Visit: No Status: Chronic (9) Post traumatic stress disorder (PTSD) Current Visit: No Status: Chronic (10) Use of cane as ambulatory aid Current Visit: Yes Status: Acute (11) Weight loss Current Visit: Yes Status: Acute Cleared for Admission [facility] - Detox or Rehab [facility] Level of Care: Medically Managed Detox Regimen/Protocol: Librium [facility] Breath Alcohol Content Breath Alcohol Content: 0 Urine Drug Screen - Results Drug Screen Negative: No Urine Drug Screen Results: THC-Marijuana, VENTURA-Cocaine, OPI-Opiates, MTD- Methadone
[2017-07-02] MEDS ORDERED: guaiFENesin/D-METHORPHAN HB 10 ML UNIT-DOSE CUPS PO PRN (17:02)
[2017-07-02] MEDS ORDERED: ACETAMINOPHEN 325 MG TABLET (FP) PO PRN (17:02)
[2017-07-02] MEDS ORDERED: MAG HYDROX/AL HYDROX/SIMETH 30 ML UNIT-DOSE CUP PO PRN (17:02)
[2017-07-02] MEDS ORDERED: MAGNESIUM CITRATE 300 ML BOTTLE PO PRN (17:02)
[2017-07-02] MEDS ORDERED: P-EPHED 60MG/TRIPROLIDI 2.5MG TABLET PO PRN (17:02)
[2017-07-02] MEDS ORDERED: MAGNESIUM HYDROX 2400MG/30ML ORAL SUSPENSION 30 ML CUP PO PRN (17:02)
[2017-07-02] MEDS ORDERED: chlordiazePOXIDE HCL 25 MG CAPSULE PO ONE (17:02)
[2017-07-02] MEDS ORDERED: chlordiazePOXIDE HCL 25 MG CAPSULE PO PRN (17:02)
[2017-07-02] MEDS ORDERED: MENTHOL/PHENOL 1 EACH UD MM PRN (17:02)
[2017-07-02] MEDS ORDERED: IBUPROFEN 400 MG TABLET (FP) PO PRN (17:02)
[2017-07-02] MEDS ORDERED: hydrOXYzine PAMOATE 25 MG CAPSULE (FP) PO PRN (17:02)
[2017-07-02] MEDS ORDERED: LOPERAMIDE HCL 2 MG CAPSULE PO PRN (17:02)
[2017-07-02] MEDS ORDERED: ALBUTEROL SO4 18 GM HFA INHALER IH PRN (17:06)
[2017-07-02] MEDS: chlordiazePOXIDE HCL 25 MG CAPSULE PO SCH (22:51)
[2017-07-02] MEDS: diphenhydrAMINE HCL 50 MG CAPSULE PO PRN (22:52)
[2017-07-02] MEDS: THIAMINE HCL 100 MG TABLET (FP) PO SCH (22:53)
[2017-07-03] MEDS: chlordiazePOXIDE HCL 25 MG CAPSULE PO SCH ×4 (06:09→22:28)
[2017-07-03] MEDS ORDERED: METHADONE HCL 10 MG TABLET PO ONE (08:58)
[2017-07-03] MEDS ORDERED: METHADONE 40 MG, METHADONE 20 MG PO ONE (09:15)
[2017-07-03 09:41] LABS: MCH 28.7 pg (25.7-33.7); MEAN CELL VOLUME 89.4 fl (80-96); MEAN PLT VOLUME 9.6 fl (7.5-11.1); PLATELET COUNT 204 K/MM3 (134-434); RDW 14.3 % (11.6-15.6); WHITE BLOOD COUNT 5.5 K/mm3 (4.0-10.0)
[2017-07-03 09:50] LABS: ALBUMIN 2.8 g/dl (3.4-5.0); ANION GAP 7 (8-16); BILIRUBIN,TOTAL 0.2 mg/dL (0.2-1.0); CALCIUM 8.7 mg/dL (8.5-10.1); CO2 27 mmol/L (21-32); CREATININE 0.9 mg/dL (0.55-1.02); GLUCOSE,RANDOM 71 mg/dL (74-106); SGOT/AST 21 U/L (15-37); SGPT/ALT 14 U/L (12-78); TOT PROT 7.3 g/dl (6.4-8.2)
[2017-07-03 09:53] LABS: ALK PHOS 126 U/L (45-117); TROPONIN I < 0.02 ng/ml (0.00-0.05)
[2017-07-03 10:42] LABS: HIV 1 & 2 AB NEGATIVE; HIV 1 AGp24 NEGATIVE
[2017-07-03] MEDS: PRENATAL VITAMINS W/ FOLIC ACID TABLET (FP) PO SCH (11:11)
[2017-07-03] MEDS ORDERED: METHADONE HCL 40 MG DISPERSABLE TABLET ONE (11:12)
[2017-07-03] MEDS ORDERED: METHADONE HCL 10 MG TABLET ONE (11:13)
--- NOTE | 2017-07-03 11:30 | PN ---
S CIWA - CIWA Score Nausea/Vomitin-No Nausea/No Vomiting Muscle Tremors: 4-Moderate,w/Arms Extend Anxiety: 3 Agitation: 4-Moderately Restless Paroxysmal Sweats: 3 Orientation: 0-Oriented Tacttile Disturbances: 0-None Auditory Disturbances: 0-None Visual Disturbances: 0-None Headache: 0-None Present CIWA-Ar Total Score: 14 BHS Progress Note (SOAP) Subjective: sweats shakes chills body aches interrupted sleep Objective: 07/03/17 11:29 Vital Signs Temperature 99.1 F 07/03/17 11:21 Pulse Rate 69 07/03/17 11:21 Respiratory Rate 20 07/03/17 11:21 Blood Pressure 102/66 07/03/17 11:21 O2 Sat by Pulse Oximetry (%) Laboratory Tests 07/03/17 07/03/17 07/03/17 07:00 07:00 07:00 WBC 5.5 RBC 4.44 Hgb 12.7 Hct 39.7 MCV 89.4 MCH 28.7 MCHC 32.0 RDW 14.3 Plt Count 204 MPV 9.6 Sodium 143 Potassium 4.1 Chloride 109 H Carbon Dioxide 27 Anion Gap 7 L BUN 15 Creatinine 0.9 D Creat Clearance w eGFR > 60 Random Glucose 71 L D Calcium 8.7 Total Bilirubin 0.2 D AST 21 ALT 14 Alkaline Phosphatase 126 H Troponin I < 0.02 Total Protein 7.3 Albumin 2.8 L RPR Titer HIV 1&2 Antibody Screen Negative HIV P24 Antigen Negative 07/03/17 07:00 WBC RBC Hgb Hct MCV MCH MCHC RDW Plt Count MPV Sodium Potassium Chloride Carbon Dioxide Anion Gap BUN Creatinine Creat Clearance w eGFR Random Glucose Calcium Total Bilirubin AST ALT Alkaline Phosphatase Troponin I Total Protein Albumin RPR Titer Nonreactive HIV 1&2 Antibody Screen HIV P24 Antigen aaox3 ambulating no acute distress Assessment: 07/03/17 11:30 withdrawal sx Plan: continue detox increase fluids labs pending
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
[2017-07-03] MEDS: diphenhydrAMINE HCL 50 MG CAPSULE PO PRN (22:27)
[2017-07-03] MEDS: THIAMINE HCL 100 MG TABLET (FP) PO SCH (22:28)
[2017-07-03] MEDS: QUEtiapine FUMARATE 100 MG TABLET (FP) PO SCH (22:28)
[2017-07-04] MEDS ORDERED: METHADONE HCL 40 MG DISPERSABLE TABLET ONE (05:24)
[2017-07-04] MEDS ORDERED: METHADONE HCL 10 MG TABLET ONE (05:25)
[2017-07-04] MEDS ORDERED: METHADONE HCL 40 MG DISPERSABLE TABLET PO SCH (06:00)
[2017-07-04] MEDS: METHADONE 40 MG, METHADONE 20 MG PO SCH (06:12)
[2017-07-04] MEDS: chlordiazePOXIDE HCL 25 MG CAPSULE PO SCH ×3 (06:13→17:37)
--- NOTE | 2017-07-04 07:22 | EKG ---
Test Reason : Blood Pressure : / mmHG Vent. Rate : 059 BPM Atrial Rate : 059 BPM P-R Int : 140 ms QRS Dur : 082 ms QT Int : 418 ms P-R-T Axes : 067 055 045 degrees QTc Int : 413 ms SINUS BRADYCARDIA OTHERWISE NORMAL ECG WHEN COMPARED WITH ECG OF 02-JUL-2017 16:44, T WAVE VARIATION Confirmed by ROSMERY CARL MD ([id number]) on 07/04/2017 7:22:35 AM Referred By: Confirmed By:ROSMERY CARL MD
--- NOTE | 2017-07-04 07:23 | EKG ---
Test Reason : Blood Pressure : / mmHG Vent. Rate : 059 BPM Atrial Rate : 059 BPM P-R Int : 126 ms QRS Dur : 100 ms QT Int : 454 ms P-R-T Axes : 057 058 047 degrees QTc Int : 449 ms SINUS BRADYCARDIA T WAVE ABNORMALITY, CONSIDER ANTEROLATERAL ISCHEMIA ABNORMAL ECG WHEN COMPARED WITH ECG OF 12-APR-2017 05:57, T WAVE VARIATION Confirmed by ROSMERY CARL MD ([id number]) on 07/04/2017 7:22:56 AM Referred By: Confirmed By:ROSMERY CARL MD
[2017-07-04] MEDS: PRENATAL VITAMINS W/ FOLIC ACID TABLET (FP) PO SCH (10:42)
--- NOTE | 2017-07-04 10:50 | PN ---
S CIWA - CIWA Score Nausea/Vomitin-No Nausea/No Vomiting Muscle Tremors: 3 Anxiety: 3 Agitation: 3 Paroxysmal Sweats: 3 Orientation: 0-Oriented Tacttile Disturbances: 0-None Auditory Disturbances: 0-None Visual Disturbances: 0-None Headache: 0-None Present CIWA-Ar Total Score: 12 BHS Progress Note (SOAP) Subjective: agitation anxiety sweats interrupted sleep Objective: 07/04/17 10:48 Vital Signs Temperature 97.5 F L 07/04/17 10:00 Pulse Rate 59 L 07/04/17 10:00 Respiratory Rate 16 07/04/17 10:00 Blood Pressure 110/61 07/04/17 10:00 O2 Sat by Pulse Oximetry (%) Laboratory Tests 07/03/17 07/03/17 07/03/17 07:00 07:00 07:00 WBC 5.5 RBC 4.44 Hgb 12.7 Hct 39.7 MCV 89.4 MCH 28.7 MCHC 32.0 RDW 14.3 Plt Count 204 MPV 9.6 Sodium 143 Potassium 4.1 Chloride 109 H Carbon Dioxide 27 Anion Gap 7 L BUN 15 Creatinine 0.9 D Creat Clearance w eGFR > 60 Random Glucose 71 L D Calcium 8.7 Total Bilirubin 0.2 D AST 21 ALT 14 Alkaline Phosphatase 126 H Troponin I < 0.02 Total Protein 7.3 Albumin 2.8 L RPR Titer HIV 1&2 Antibody Screen Negative HIV P24 Antigen Negative 07/03/17 07:00 WBC RBC Hgb Hct MCV MCH MCHC RDW Plt Count MPV Sodium Potassium Chloride Carbon Dioxide Anion Gap BUN Creatinine Creat Clearance w eGFR Random Glucose Calcium Total Bilirubin AST ALT Alkaline Phosphatase Troponin I Total Protein Albumin RPR Titer Nonreactive HIV 1&2 Antibody Screen HIV P24 Antigen aaox3 ambulating no acute distress Assessment: 07/04/17 10:49 withdrawal sx Plan: increase fluids continue detox
[2017-07-04] MEDS: diphenhydrAMINE HCL 50 MG CAPSULE PO PRN (22:15)
[2017-07-04] MEDS: THIAMINE HCL 100 MG TABLET (FP) PO SCH (22:15)
[2017-07-04] MEDS: QUEtiapine FUMARATE 100 MG TABLET (FP) PO SCH (22:16)
[2017-07-04] MEDS: chlordiazePOXIDE 5 MG CAPSULE PO SCH (22:16)
[2017-07-05] MEDS ORDERED: METHADONE HCL 10 MG TABLET ONE (04:06)
[2017-07-05] MEDS ORDERED: METHADONE HCL 40 MG DISPERSABLE TABLET ONE (04:06)
[2017-07-05] MEDS: chlordiazePOXIDE 5 MG CAPSULE PO SCH ×3 (06:05→17:07)
[2017-07-05] MEDS: METHADONE 40 MG, METHADONE 20 MG PO SCH (06:06)
[2017-07-05 10:08] LABS: URINE APPEARANCE CLEAR; URINE BILIRUBIN NEGATIVE (NEGATIVE); URINE BLOOD NEGATIVE (NEGATIVE); URINE COLOR LTYELLOW; URINE GLUCOSE (UA) NEGATIVE (NEGATIVE); URINE KETONE NEGATIVE (NEGATIVE); URINE NITRITE NEGATIVE (NEGATIVE); URINE PROTEIN NEGATIVE (NEGATIVE); URINE UROBILINOGEN NEGATIVE mg/dL (0.2-1.0)
[2017-07-05] MEDS: PRENATAL VITAMINS W/ FOLIC ACID TABLET (FP) PO SCH (10:41)
--- NOTE | 2017-07-05 13:46 | PN ---
BHS Progress Note (SOAP) Subjective: N/V (vomited x 3 this morning as per patient, doesn't want tigan injection, only wants tablet), tremor, chills, sweating, diarrhea Objective: 07/05/17 13:44 Last Vital Signs Temp Pulse Resp BP Pulse Ox 98.3 F 65 18 109/72 07/05/17 10:00 07/05/17 10:00 07/05/17 10:00 07/05/17 10:00 Laboratory Tests 07/03/17 07/03/17 07/03/17 07:00 07:00 07:00 WBC 5.5 RBC 4.44 Hgb 12.7 Hct 39.7 MCV 89.4 MCH 28.7 MCHC 32.0 RDW 14.3 Plt Count 204 MPV 9.6 Sodium 143 Potassium 4.1 Chloride 109 H Carbon Dioxide 27 Anion Gap 7 L BUN 15 Creatinine 0.9 D Creat Clearance w eGFR > 60 Random Glucose 71 L D Calcium 8.7 Total Bilirubin 0.2 D AST 21 ALT 14 Alkaline Phosphatase 126 H Troponin I < 0.02 Total Protein 7.3 Albumin 2.8 L Urine Color Urine Appearance Urine pH Urine Protein Urine Glucose (UA) Urine Ketones Urine Blood Urine Nitrite Urine Bilirubin Urine Urobilinogen RPR Titer HIV 1&2 Antibody Screen Negative HIV P24 Antigen Negative 07/03/17 07/05/17 07:00 08:30 WBC RBC Hgb Hct MCV MCH MCHC RDW Plt Count MPV Sodium Potassium Chloride Carbon Dioxide Anion Gap BUN Creatinine Creat Clearance w eGFR Random Glucose Calcium Total Bilirubin AST ALT Alkaline Phosphatase Troponin I Total Protein Albumin Urine Color Ltyellow Urine Appearance Clear Urine pH 5.0 D Urine Protein Negative Urine Glucose (UA) Negative Urine Ketones Negative Urine Blood Negative Urine Nitrite Negative Urine Bilirubin Negative Urine Urobilinogen Negative RPR Titer Nonreactive HIV 1&2 Antibody Screen HIV P24 Antigen Labs noted Assessment: 07/05/17 13:45 Withdrawal symptoms Plan: Continue detox Encouraged to drink lots of water (water pitcher ordered), repeat BMP if warranted
[2017-07-05 17:28] LABS: URINE LEUK ESTERASE Negative (NEGATIVE)
[2017-07-05] MEDS: QUEtiapine FUMARATE 100 MG TABLET (FP) PO SCH (22:34)
[2017-07-05] MEDS: THIAMINE HCL 100 MG TABLET (FP) PO SCH (22:34)
[2017-07-05] MEDS: chlordiazePOXIDE HCL 10 MG CAPSULE PO SCH (22:34)
[2017-07-06] MEDS ORDERED: METHADONE HCL 40 MG DISPERSABLE TABLET ONE (05:22)
[2017-07-06] MEDS ORDERED: METHADONE HCL 10 MG TABLET ONE (05:22)
[2017-07-06] MEDS: chlordiazePOXIDE HCL 10 MG CAPSULE PO SCH ×2 (06:00→10:55)
[2017-07-06] MEDS: METHADONE 40 MG, METHADONE 20 MG PO SCH (06:04)
--- NOTE | 2017-07-06 09:07 | DS ---
[facility] Detox Discharge Summary Admission Date: 07/02/17 Discharge Date: 07/06/17 - History Present History: Alcohol Dependence, Cannabis Dependence, Cocaine Dependence, Opioid Dependence, MMTP - Physical Exam Results Vital Signs: Vital Signs Temperature 98.6 F 07/06/17 06:48 Pulse Rate 67 07/06/17 06:48 Respiratory Rate 18 07/06/17 06:48 Blood Pressure 118/66 07/06/17 06:48 O2 Sat by Pulse Oximetry (%) - Treatment Hospital Course: Detox Protocol Followed, Detoxed Safely, Responded well, Discharged Condition Good, Rehab Referral Accepted - Medication Discharge Medications: Ambulatory Orders Quetiapine Fumarate [Seroquel -] 50 mg PO DAILY 12/25/13 Zolpidem Tartrate [Ambien] 10 mg PO HS 12/25/13 Quetiapine Fumarate [Seroquel -] 400 mg PO HS 08/04/16 Albuterol Sulfate [Proair Respiclick] 90 mcg IH PRN #1 [email or web address] 08/09/16 Methadone [Dolophine -] 60 mg PO DAILY 12/02/16 Albuterol Sulfate Inhaler - [Ventolin HFA Inhaler -] 2 puff IH Q4H PRN #1 inhaler 12/06/16 Buspirone HCl [Buspar -] 20 mg PO BID 07/02/17 Gabapentin [Neurontin -] 200 mg PO TID MDD 300 mg 07/02/17 - Diagnosis (1) Alcohol dependence with uncomplicated withdrawal Current Visit: Yes Status: Chronic (2) Cocaine dependence, uncomplicated Current Visit: Yes Status: Chronic (3) Nicotine dependence Current Visit: Yes Status: Chronic Qualifiers: Nicotine product type: cigarettes Substance use status: uncomplicated Qualified Code(s): F17.210 - Nicotine dependence, cigarettes, uncomplicated; F17.210 - Nicotine dependence, cigarettes, uncomplicated (4) Asthma Current Visit: Yes Status: Chronic Qualifiers: Asthma severity: mild Asthma complication type: uncomplicated (5) Hepatitis C carrier Current Visit: Yes Status: Chronic (6) Methadone maintenance therapy patient Current Visit: Yes Status: Chronic (7) Pain due to total left knee replacement Current Visit: No Status: Chronic Qualifiers: Encounter type: initial encounter Qualified Code(s): T84.84XA - Pain due to internal orthopedic prosthetic devices, implants and grafts, initial encounter; T84.84XA - Pain due to internal orthopedic prosthetic devices , implants and grafts, initial encounter; T84.84XA - Pain due to internal orthopedic prosthetic devices, implants and grafts, initial encounter; Z96.652 - Presence of left artificial knee joint; Z96.652 - Presence of left artificial knee joint - AMA Did Patient Leave Against Medical Advice: No
[2017-07-06 10:07] VITALS: BP 117/73; PULSE 96; TEMP 98
[2017-07-06] MEDS: PRENATAL VITAMINS W/ FOLIC ACID TABLET (FP) PO SCH (10:53)
== END 2017-07-06 12:36 | disposition other institution (70) | DRG 773 ==
LOC: YASAS 15:28 → Y6N 16:24
PROVIDERS: ADMIT Internal Medicine; ATTEND Internal Medicine
PROC: HZ2ZZZZ Detoxification Services for Substance Abuse Treatment (ICD-10-PCS; principal; 2017-07-02)
DX: F11.20 Opioid dependence, uncomplicated (principal); F10.230 Alcohol dependence with withdrawal, uncomplicated; F14.20 Cocaine dependence, uncomplicated; F12.10 Cannabis abuse, uncomplicated; F32.9 Major depressive disorder, single episode, unspecified; F43.10 Post-traumatic stress disorder, unspecified; F19.24 Other psychoactive substance dependence with psychoactive substance-induced mood disorder; B18.2 Chronic viral hepatitis C; G47.00 Insomnia, unspecified; T84.84XA Pain due to internal orthopedic prosthetic devices, implants and grafts, initial encounter; Z96.652 Presence of left artificial knee joint; R63.4 Abnormal weight loss; Z68.21 Body mass index [BMI] 21.0-21.9, adult; R26.89 Other abnormalities of gait and mobility; Z99.89 Dependence on other enabling machines and devices
CPT/HCPCS: 36415; 80053; 81003; 84484; 85027; 86593; 87389; 93005; 93010

== ENCOUNTER 2017-10-26 09:32 | Inpatient (IN) | payer OTHER ==
[2017-10-26 10:01] VITALS: BMI 22.6
--- NOTE | 2017-10-26 12:21 | HP ---
COWS - Scale Resting Pulse: 0= [place] 80 or Below Sweatin=Flushed/Facial Moisture Restless Observation: 1= Difficult to Sit Still Pupil Size: 0= Normal to Room Light Bone or Joint Aches: 2= Severe Diffuse Aches Runny Nose/ Eye Tearin= Runny Nose/Eyes GI Upset > 30mins: 2= Nausea/Diarrhea Tremor Observation: 2= Slight Tremor Visible Yawning Observation: 2= >3x During Session Anxiety or Irritability: 2=Irritable/Anxious Goose Flesh Skin: 3=[place] COWS Score: 18 CIWA Score - CIWA Score Nausea/Vomitin-Mild Nausea/No Vomiting Muscle Tremors: 4-Moderate,w/Arms Extend Anxiety: 4-Mod. Anxious/Guarded Agitation: 4-Moderately Restless Paroxysmal Sweats: 3 Orientation: 0-Oriented Tacttile Disturbances: 0-None Auditory Disturbances: 0-None Visual Disturbances: 0-None Headache: 0-None Present CIWA-Ar Total Score: 16 Admission ROS BHS - HPI Chief Complaint: I am tired and need to try again. Allergies/Adverse Reactions: Allergies Allergy/AdvReac Type Severity Reaction Status Date / Time No Known Allergies Allergy Verified 10/26/17 10:30 History of Present Illness: pt is a 47yr old female with a history of alcohol and heroin dependence seeking detox for treatment. Exam Limitations: No Limitations - Ebola screening Have you traveled outside of the country in the last 21 days: No (N) Have you had contact with anyone from an Ebola affected area: No Have you been sick,other than usual withdrawal symptoms: No Do you have a fever: No - Review of Systems Constitutional: Chills, Diaphoresis, Night Sweats, Changes in sleep EENT: reports: No Symptoms Reported Respiratory: reports: No Symptoms reported Cardiac: reports: Lightheadedness GI: reports: Constipated, Diarrhea, Poor Fluid Intake Musculoskeletal: reports: No Symptoms Reported Integumentary: reports: Flushing, Sweating Neuro: reports: Headache, Seizure (last seizure about a 1yr ago), Tingling, Tremors Endocrine: reports: Excessive Sweating, Flushing, Intolerance to Heat Hematology: reports: No Symptoms Reported Psychiatric: reports: Judgement Intact, Mood/Affect Appropiate, Orientated x3, Agitated, Anxious Other Systems: Reviewed and Negative Patient History - Patient Medical History Hx Anemia: No Hx Asthma: Yes Hx Chronic Obstructive Pulmonary Disease (COPD): No Hx Cancer: No Hx Cardiac Disorders: No Hx Congestive Heart Failure: No Hx Hypertension: No Hx Hypercholesterolemia: No Hx Pacemaker: No HX Cerebrovascular Accident: No Hx Seizures: Yes (alcohol related once at age 30) Hx Dementia: No Hx Diabetes: No Hx Gastrointestinal Disorders: No Hx Liver Disease: No Hx Genitourinary Disorders: No Hx Sexually Transmitted Disorders: Yes (gonorrhea at age 15) Hx Renal Disease (ESRD): No Hx Thyroid Disease: No Hx Human Immunodeficiency Virus (HIV): No (last 04/03 negative) Hx Hepatitis C: Yes (since age of 18 years) Hx Depression: Yes Hx Suicide Attempt: No Hx Bipolar Disorder: No Hx Schizophrenia: No - Patient Surgical History Past Surgical History: Yes Hx Neurologic Surgery: No Hx Cataract Extraction: No Hx Cardiac Surgery: No Hx Lung Surgery: No Hx Breast Surgery: No Hx Breast Biopsy: No Hx Abdominal Surgery: Yes (umbillical hernia repair) Hx Appendectomy: No Hx Cholecystectomy: No Hx Genitourinary Surgery: No Hx Section: No Hx Orthopedic Surgery: Yes (total knee replacement in 10/01 at [facility]) Hx Hysterectomy: No Anesthesia Reaction: No - PPD History Previous Implant?: Yes Documented Results: Negative w/o proof Implanted On Prior R Admission?: Yes PPD to be Administered?: Yes - Reproductive History Patient is a Female of Child Bearing Age (11 -55 yrs old): No Last Menstrual Period: 09/03/12 Patient : No - Smoking Cessation Smoking history: Current every day smoker Have you smoked in the past 12 months: Yes Aproximately how many cigarettes per day: 10 Cigars Per Day: 0 Hx Chewing Tobacco Use: No Initiated information on smoking cessation: Yes 'Breaking Loose' booklet given: 10/26/17 - Substance & Tx. History Hx Alcohol Use: Yes Hx Substance Use: Yes Substance Use Type: Alcohol, Cocaine, Heroin, Marijuana Hx Substance Use Treatment: Yes (last detox [facility] 2017) - Substances Abused Heroin Route: Injection Frequency: Daily Amount used: 5-6 bags Age of first use: 12 Date of Last Use: 10/25/17 Crack Route: Smoking Frequency: Daily Amount used: $100 Age of first use: 13 Date of Last Use: 10/25/17 Alcohol-gin/beer Route: Oral Frequency: Daily Amount used: 1-2 pts./1-2 6 pks. Age of first use: 11 Date of Last Use: 10/26/17 Marijuana Route: Smoking Frequency: Daily Amount used: $60 Age of first use: 9 Date of Last Use: 10/25/17 Family Disease History - Family Disease History Family Disease History: Diabetes: Sister, Other: Grandparent (alcohol), Mother ( hypertension) Admission Physical Exam [facility] - Vital Signs Vital Signs: Vital Signs - 24 hr 10/26/17 09:51 Temperature 98.6 F Pulse Rate 73 Respiratory 20 Rate Blood Pressure 165/93 - Physical General Appearance: Yes: Appropriately Dressed, Moderate Distress, Tremorous, Irritable, Sweating, Anxious HEENTM: Yes: Hearing grossly Normal, Normal Voice Respiratory: Yes: Lungs Clear, Normal Breath Sounds, No Respiratory Distress Neck: Yes: No masses,lesions,Nodules Breast: Yes: Within Normal Limits Cardiology: Yes: Regular Rhythm, Regular Rate, S1, S2 Abdominal: Yes: Normal Bowel Sounds, Non Tender, Soft Genitourinary: Yes: Within Normal Limits Back: Yes: Normal Inspection Musculoskeletal: Yes: full range of Motion, Gait Steady, Back pain Extremities: Yes: Normal Capillary Refill, Non-Tender, Tremors Neurological: Yes: Fully Oriented, Alert, Normal Response Integumentary: Yes: Normal Color, Diaphoresis, Track [place] Lymphatic: Yes: Within Normal Limits - Diagnostic (1) Opioid dependence with withdrawal Current Visit: Yes Status: Chronic (2) Cocaine dependence Current Visit: Yes Status: Chronic Qualifiers: Substance use status: uncomplicated Qualified Code(s): F14.20 - Cocaine dependence, uncomplicated (3) Alcohol dependence with uncomplicated withdrawal Current Visit: Yes Status: Chronic (4) Cocaine dependence, uncomplicated Current Visit: Yes Status: Chronic (5) Nicotine dependence Current Visit: No Status: Chronic Qualifiers: Nicotine product type: cigarettes Substance use status: uncomplicated Qualified Code(s): F17.210 - Nicotine dependence, cigarettes, uncomplicated (6) Use of cane as ambulatory aid Current Visit: Yes Status: Chronic (7) Asthma Current Visit: Yes Status: Chronic Qualifiers: Asthma severity: mild Asthma persistence: intermittent (8) Hepatitis C carrier Current Visit: No Status: Chronic Cleared for Admission [facility] - Detox or Rehab [facility] Level of Care: Medically Managed Detox Regimen/Protocol: Methadone/Librium BHS Breath Alcohol Content Breath Alcohol Content: 0.017 Urine Pregancy Test - Result Urine Test Results: Negative- NO Line Present Urine Drug Screen - Results Drug Screen Negative: No Urine Drug Screen Results: THC-Marijuana, VENTURA-Cocaine, OPI-Opiates, TCA- Tricyclic Antidepress
[2017-10-26] MEDS ORDERED: MENTHOL/PHENOL 1 EACH UD MM PRN (12:22)
[2017-10-26] MEDS ORDERED: guaiFENesin/D-METHORPHAN HB 10 ML UNIT-DOSE CUPS PO PRN (12:22)
[2017-10-26] MEDS ORDERED: MAGNESIUM CITRATE 300 ML BOTTLE PO PRN (12:22)
[2017-10-26] MEDS ORDERED: chlordiazePOXIDE HCL 25 MG CAPSULE PO ONE (12:22)
[2017-10-26] MEDS ORDERED: MAG HYDROX/AL HYDROX/SIMETH 30 ML UNIT-DOSE CUP PO PRN (12:22)
[2017-10-26] MEDS ORDERED: LOPERAMIDE HCL 2 MG CAPSULE PO PRN (12:22)
[2017-10-26] MEDS ORDERED: P-EPHED 60MG/TRIPROLIDI 2.5MG TABLET PO PRN (12:22)
[2017-10-26] MEDS ORDERED: hydrOXYzine PAMOATE 50 MG CAPSULE (FP) PO PRN (12:22)
[2017-10-26] MEDS ORDERED: METHADONE HCL 10 MG TABLET (FOR DETOX USE ONLY) PO ONE ×2 (12:22→23:00)
[2017-10-26] MEDS ORDERED: ACETAMINOPHEN 325 MG TABLET (FP) PO PRN (12:22)
[2017-10-26] MEDS ORDERED: NICOTINE POLACRILEX 4 MG GUM BUC PRN (12:22)
[2017-10-26] MEDS ORDERED: chlordiazePOXIDE HCL 25 MG CAPSULE PO PRN (12:22)
[2017-10-26] MEDS ORDERED: MAGNESIUM HYDROX 2400MG/30ML ORAL SUSPENSION 30 ML CUP PO PRN (12:22)
[2017-10-26] MEDS ORDERED: ALBUTEROL SO4 18 GM HFA INHALER IH PRN (12:23)
--- NOTE | 2017-10-26 13:33 | CONSULT ---
[facility] Psychiatric Consult - Data Date of interview: 10/26/17 Admission source: [facility] Identifying data: This is is a 47 years old AA female, single mother of two, [facility], on [facility]SI, ambulating with cane, with a history of Alcohol and Heroin dependence seeking detox for treatment. Substance Abuse History: Smoking Cessation. Smoking history: Current every day smoker. Have you smoked in the past 12 months: Yes. Aproximately how many cigarettes per day: 10. Cigars Per Day: 0. Hx Chewing Tobacco Use: No. Initiated information on smoking cessation: Yes. 'Breaking Loose' booklet given : 10/26/17. - Substance & Tx. History. Hx Alcohol Use: Yes. Hx Substance Use : Yes. Substance Use Type: Alcohol, Cocaine, Heroin, Marijuana. Hx Substance Use Treatment: Yes (last detox [facility] 2017). - Substances Abused. Heroin. Route: Injection. Frequency: Daily. Amount used: 5-6 bags. Age of first use: 12. Date of Last Use: 10/25/17. Crack. Route: Smoking. Frequency: Daily. Amount used: $100. Age of first use: 13. Date of Last Use: 10/25/17. Alcohol-gin/beer. Route: Oral. Frequency: Daily. Amount used: 1 -2 pts./1-2 6 pks. Age of first use: 11. Date of Last Use: 10/26/17. Marijuana. Route: Smoking. Frequency: Daily. Amount used: $60. Age of first use: 9. Date of Last Use: 10/25/17 Medical History: Left knee replacement history, Asthma, HepC+, Psychiatric History: Patient reports long history of depression and anxiety, PTSD, with most recent psychiatric admission for safety on 2015 at [facility] for safety, reports taking prior to admission: Seroquel 50mg poqd, 400mg po qhs. Ambien 10mg po qhs. Lexapro 20mg poqd. Buspar 30mg po bid Physical/Sexual Abuse/Trauma History: Denies Additional Comment: Seroquel 50mg poqd, 400mg po qhs. Ambien 10mg po qhs. Lexapro 20mg poqd. Buspar 30mg po bid Mental Status Exam - Mental Status Exam Alert and Oriented to: Person Cognitive Function: Fair Patient Appearance: Unkempt Mood: Anxious Affect: Mood Congruent Patient Behavior: Cooperative Speech Pattern: Appropriate Voice Loudness: Mildly Loud Thought Process: Circumstantial, Goal Oriented Thought Disorder: Being Controlled Hallucinations: Denies Suicidal Ideation: Denies Homicidal Ideation: Denies Insight/Judgement: Fair Sleep: Difficulty falling asleep Appetite: Weight loss Muscle strength/Tone: Mild Hypertonicity Gait/Station: Deferred Additional Comments: Seroquel 50mg poqd, 400mg po qhs. Ambien 10mg po qhs. Lexapro 20mg poqd. Buspar 30mg po bid Psychiatric Findings - Problem List ([place] 1, 2,3) (1) Alcohol dependence with uncomplicated withdrawal Current Visit: Yes Status: Chronic (2) Cocaine dependence Current Visit: Yes Status: Chronic Qualifiers: Substance use status: uncomplicated Qualified Code(s): F14.20 - Cocaine dependence, uncomplicated (3) Cocaine dependence, uncomplicated Current Visit: Yes Status: Chronic (4) Opioid dependence with withdrawal Current Visit: Yes Status: Chronic (5) Marihuana abuse Current Visit: No Status: Acute (6) Mood disorder Current Visit: No Status: Acute (7) Opioid dependence on agonist therapy Current Visit: No Status: Acute (8) Substance induced mood disorder Current Visit: No Status: Acute (9) Nicotine dependence Current Visit: No Status: Chronic Qualifiers: Nicotine product type: cigarettes Substance use status: uncomplicated Qualified Code(s): F17.210 - Nicotine dependence, cigarettes, uncomplicated (10) Post traumatic stress disorder (PTSD) Current Visit: No Status: Chronic - Initial Treatment Plan Initial Treatment Plan: Seroquel 50mg poqd, 400mg po qhs. Ambien 10mg po qhs. Lexapro 20mg poqd. Buspar 30mg po bid
[2017-10-26] MEDS: ESCITALOPRAM OXALATE 20 MG TABLET (FP) PO SCH (14:36)
[2017-10-26] MEDS: GABAPENTIN 300 MG CAPSULE (FP) PO SCH ×2 (14:36→22:21)
[2017-10-26 17:30] LABS: URINE APPEARANCE CLEAR; URINE BILIRUBIN NEGATIVE (NEGATIVE); URINE BLOOD NEGATIVE (NEGATIVE); URINE COLOR DKYELLOW; URINE GLUCOSE (UA) NEGATIVE (NEGATIVE); URINE KETONE TRACE (NEGATIVE); URINE LEUK ESTERASE NEGATIVE (NEGATIVE); URINE NITRITE NEGATIVE (NEGATIVE); URINE PROTEIN NEGATIVE (NEGATIVE); URINE UROBILINOGEN 4.0 E.U/dl mg/dL (0.2-1.0)
[2017-10-26] MEDS: chlordiazePOXIDE HCL 25 MG CAPSULE PO SCH ×2 (17:43→22:21)
[2017-10-26] MEDS: ZOLPIDEM TARTRATE 10 MG TABLET (PARK CARE ONLY) PO PRN (22:20)
[2017-10-26] MEDS: QUEtiapine FUMARATE 200 MG TABLET PO SCH (22:21)
[2017-10-26] MEDS: THIAMINE HCL 100 MG TABLET (FP) PO SCH (22:21)
[2017-10-27] MEDS: chlordiazePOXIDE HCL 25 MG CAPSULE PO SCH ×4 (06:21→22:21)
[2017-10-27] MEDS: GABAPENTIN 300 MG CAPSULE (FP) PO SCH ×3 (06:21→22:21)
[2017-10-27] MEDS: IBUPROFEN 400 MG TABLET (FP) PO PRN (06:23)
[2017-10-27] MEDS ORDERED: METHADONE HCL 10 MG TABLET (FOR DETOX USE ONLY) PO SCH (10:00)
[2017-10-27 10:24] LABS: HEMATOCRIT 43.7 % (32.4-45.2); HEMOGLOBIN 14.2 GM/dL (10.7-15.3); MCH 29.3 pg (25.7-33.7); MCHC 32.4 g/dl (32.0-36.0); MEAN CELL VOLUME 90.3 fl (80-96); MEAN PLT VOLUME 10.3 fl (7.5-11.1); PLATELET COUNT 272 K/MM3 (134-434); RBC 4.84 M/mm3 (3.60-5.2); RDW 14.9 % (11.6-15.6)
[2017-10-27] MEDS: NICOTINE 21 MG/24 HOURS TOPICAL PATCH TD SCH (10:37)
[2017-10-27] MEDS: QUEtiapine FUMARATE 50 MG TABLET PO SCH (10:37)
[2017-10-27] MEDS: PRENATAL VITAMINS W/ FOLIC ACID TABLET (FP) PO SCH (10:37)
[2017-10-27] MEDS: ESCITALOPRAM OXALATE 20 MG TABLET (FP) PO SCH (10:37)
[2017-10-27 10:51] LABS: CHLORIDE 105 mmol/L (98-107); POTASSIUM 3.6 mmol/L (3.5-5.1); SODIUM 137 mmol/L (136-145)
[2017-10-27 11:12] LABS: ALBUMIN 4.1 g/dl (3.4-5.0); ALK PHOS 137 U/L (45-117); ANION GAP 11 (8-16); BILIRUBIN,TOTAL 0.8 mg/dL (0.2-1.0); BLOOD UREA NITROGEN 11 mg/dL (7-18); CALCIUM 8.8 mg/dL (8.5-10.1); CO2 21 mmol/L (21-32); CREATININE 0.7 mg/dL (0.55-1.02); GLUCOSE,RANDOM 92 mg/dL (74-106); SGOT/AST 23 U/L (15-37); SGPT/ALT 26 U/L (12-78); TOT PROT 9.1 g/dl (6.4-8.2)
--- NOTE | 2017-10-27 11:14 | PN ---
[facility] CIWA - CIWA Score Nausea/Vomitin-No Nausea/No Vomiting Muscle Tremors: 4-Moderate,w/Arms Extend Anxiety: 3 Agitation: 3 Paroxysmal Sweats: 3 Orientation: 0-Oriented Tacttile Disturbances: 0-None Auditory Disturbances: 0-None Visual Disturbances: 0-None Headache: 0-None Present CIWA-Ar Total Score: 13 [facility] COWS - Scale Resting Pulse: 1= [place] 81-100 Sweatin=Flushed/Facial Moisture Restless Observation: 1= Difficult to Sit Still Pupil Size: 0= Normal to Room Light Bone or Joint Aches: 2= Severe Diffuse Aches Runny Nose/ Eye Tearin= Runny Nose/Eyes GI Upset > 30mins: 0= None Tremor Observation of Outstretched Hands: 1= Tremor [place], Not Seen Yawning Observation: 2= >3x During Session Anxiety or Irritability: 2=Irritable/Anxious Goose Flesh Skin: 0=Smooth Skin COWS Score: 13 [facility] Progress Note (SOAP) Subjective: body aches sweats shakes interrupted sleep chills irritable Objective: 10/27/17 11:05 Vital Signs Temperature 97.9 F 10/27/17 06:14 Pulse Rate 61 10/27/17 06:14 Respiratory Rate 16 10/27/17 06:14 Blood Pressure 120/70 10/27/17 06:14 O2 Sat by Pulse Oximetry (%) Laboratory Tests 10/26/17 10/26/17 10/27/17 12:40 15:40 05:50 WBC 10.0 D RBC 4.84 Hgb 14.2 D Hct 43.7 MCV 90.3 MCH 29.3 MCHC 32.4 RDW 14.9 Plt Count 272 D MPV 10.3 Urine Color Dkyellow Urine Appearance Clear Urine pH 6.0 Ur Specific [place] 1.019 Urine Protein Negative Urine Glucose (UA) Negative Urine Ketones Trace H Urine Blood Negative Urine Nitrite Negative Urine Bilirubin Negative Urine Urobilinogen 4.0 e.u/dl H Ur Leukocyte Esterase Negative HIV 1&2 Antibody Screen Negative HIV P24 Antigen Negative rest of labs pending aaox3 ambulating no acute distress Assessment: 10/27/17 11:06 withdrawal sx Plan: continue detox increase fluids labs pending
--- NOTE | 2017-10-27 14:23 | EKG ---
Test Reason : Blood Pressure : / mmHG Vent. Rate : 077 BPM Atrial Rate : 077 BPM P-R Int : 122 ms QRS Dur : 086 ms QT Int : 400 ms P-R-T Axes : 053 041 035 degrees QTc Int : 452 ms NORMAL SINUS RHYTHM T WAVE ABNORMALITY, CONSIDER ANTERIOR ISCHEMIA ABNORMAL ECG WHEN COMPARED WITH ECG OF 03-JUL-2017 05:46, T WAVE INVERSION NOW EVIDENT IN ANTERIOR LEADS Confirmed by TRACEY RAMIREZ, VIVIENNE ([id number]) on 10/27/2017 2:22:44 PM Referred By: Confirmed By:VIVIENNE WEBB MD
[2017-10-27] MEDS: ZOLPIDEM TARTRATE 10 MG TABLET (PARK CARE ONLY) PO PRN (22:21)
[2017-10-27] MEDS: THIAMINE HCL 100 MG TABLET (FP) PO SCH (22:21)
[2017-10-27] MEDS: QUEtiapine FUMARATE 200 MG TABLET PO SCH (22:21)
[2017-10-28] MEDS: GABAPENTIN 300 MG CAPSULE (FP) PO SCH ×3 (05:39→22:23)
[2017-10-28] MEDS: chlordiazePOXIDE HCL 25 MG CAPSULE PO SCH ×2 (05:39→10:39)
[2017-10-28] MEDS: PRENATAL VITAMINS W/ FOLIC ACID TABLET (FP) PO SCH (10:38)
[2017-10-28] MEDS: METHADONE HCL 5 MG TABLET (FOR DETOX USE ONLY) PO SCH (10:38)
[2017-10-28] MEDS: ESCITALOPRAM OXALATE 20 MG TABLET (FP) PO SCH (10:38)
[2017-10-28] MEDS: QUEtiapine FUMARATE 50 MG TABLET PO SCH (10:39)
[2017-10-28] MEDS: NICOTINE 21 MG/24 HOURS TOPICAL PATCH TD SCH (11:09)
--- NOTE | 2017-10-28 16:16 | PN ---
[facility] CIWA - CIWA Score Nausea/Vomitin Muscle Tremors: 4-Moderate,w/Arms Extend Anxiety: 3 Agitation: 3 Paroxysmal Sweats: 2 Orientation: 0-Oriented Tacttile Disturbances: 0-None Auditory Disturbances: 0-None Visual Disturbances: 0-None Headache: 0-None Present CIWA-Ar Total Score: 15 S COWS - Scale Resting Pulse: 0= SC 80 or Below Sweatin=Flushed/Facial Moisture Restless Observation: 1= Difficult to Sit Still Pupil Size: 0= Normal to Room Light Bone or Joint Aches: 1= Mild Discomfort Runny Nose/ Eye Tearin= Nasal Congestion GI Upset > 30mins: 2= Nausea/Diarrhea Tremor Observation of Outstretched Hands: 2= Slight Tremor Visible Yawning Observation: 0= None Anxiety or Irritability: 2=Irritable/Anxious Goose Flesh Skin: 0=Smooth Skin COWS Score: 11 [facility] Progress Note (SOAP) Subjective: tired shakes abd cramp Objective: 10/28/17 16:15 sleepy but arousable Vital Signs Temperature 97.7 F 10/28/17 14:56 Pulse Rate 78 10/28/17 14:56 Respiratory Rate 18 10/28/17 14:56 Blood Pressure 119/68 10/28/17 14:56 O2 Sat by Pulse Oximetry (%) Laboratory Last Values WBC 10.0 K/mm3 (4.0-10.0) D 10/27/17 05:50 RBC 4.84 M/mm3 (3.60-5.2) 10/27/17 05:50 Hgb 14.2 GM/dL (10.7-15.3) D 10/27/17 05:50 Hct 43.7 % (32.4-45.2) 10/27/17 05:50 MCV 90.3 fl (80-96) 10/27/17 05:50 MCH 29.3 pg (25.7-33.7) 10/27/17 05:50 MCHC 32.4 g/dl (32.0-36.0) 10/27/17 05:50 RDW 14.9 % (11.6-15.6) 10/27/17 05:50 Plt Count 272 K/MM3 (134-434) D 10/27/17 05:50 MPV 10.3 fl (7.5-11.1) 10/27/17 05:50 Sodium 137 mmol/L (136-145) 10/27/17 05:50 Potassium 3.6 mmol/L (3.5-5.1) 10/27/17 05:50 Chloride 105 mmol/L (98-107) 10/27/17 05:50 Carbon Dioxide 21 mmol/L (21-32) 10/27/17 05:50 Anion Gap 11 (8-16) 10/27/17 05:50 BUN 11 mg/dL (7-18) 10/27/17 05:50 Creatinine 0.7 mg/dL (0.55-1.02) 10/27/17 05:50 Creat Clearance w eGFR > 60 (>60) 10/27/17 05:50 Random Glucose 92 mg/dL (74-106) 10/27/17 05:50 Calcium 8.8 mg/dL (8.5-10.1) 10/27/17 05:50 Total Bilirubin 0.8 mg/dL (0.2-1.0) D 10/27/17 05:50 AST 23 U/L (15-37) 10/27/17 05:50 ALT 26 U/L (12-78) 10/27/17 05:50 Alkaline Phosphatase 137 U/L (45-117) H 10/27/17 05:50 Total Protein 9.1 g/dl (6.4-8.2) H 10/27/17 05:50 Albumin 4.1 g/dl (3.4-5.0) 10/27/17 05:50 Urine Color Dkyellow 10/26/17 15:40 Urine Appearance Clear 10/26/17 15:40 Urine pH 6.0 (5.0-8.0) 10/26/17 15:40 Ur Specific [place] 1.019 (1.001-1.035) 10/26/17 15:40 Urine Protein Negative (NEGATIVE) 10/26/17 15:40 Urine Glucose (UA) Negative (NEGATIVE) 10/26/17 15:40 Urine Ketones Trace (NEGATIVE) H 10/26/17 15:40 Urine Blood Negative (NEGATIVE) 10/26/17 15:40 Urine Nitrite Negative (NEGATIVE) 10/26/17 15:40 Urine Bilirubin Negative (NEGATIVE) 10/26/17 15:40 Urine Urobilinogen 4.0 e.u/dl mg/dL (0.2-1.0) H 10/26/17 15:40 Ur Leukocyte Esterase Negative (NEGATIVE) 10/26/17 15:40 RPR Titer Nonreactive (NONREACTIVE) 10/27/17 05:50 HIV 1&2 Antibody Screen Negative 10/26/17 12:40 HIV P24 Antigen Negative 10/26/17 12:40 labs noted Assessment: 10/28/17 16:16 withdrawal sx Plan: continue detox
[2017-10-28] MEDS: chlordiazePOXIDE 5 MG CAPSULE PO SCH ×2 (17:15→22:23)
[2017-10-28] MEDS: THIAMINE HCL 100 MG TABLET (FP) PO SCH (22:23)
[2017-10-28] MEDS: QUEtiapine FUMARATE 200 MG TABLET PO SCH (22:24)
[2017-10-29] MEDS: chlordiazePOXIDE 5 MG CAPSULE PO SCH ×2 (06:03→10:31)
[2017-10-29] MEDS: IBUPROFEN 400 MG TABLET (FP) PO PRN (06:04)
[2017-10-29] MEDS: GABAPENTIN 300 MG CAPSULE (FP) PO SCH ×3 (06:08→22:29)
[2017-10-29] MEDS: PRENATAL VITAMINS W/ FOLIC ACID TABLET (FP) PO SCH (10:29)
[2017-10-29] MEDS: METHADONE HCL 5 MG TABLET (FOR DETOX USE ONLY) PO SCH (10:29)
[2017-10-29] MEDS: QUEtiapine FUMARATE 50 MG TABLET PO SCH (10:29)
[2017-10-29] MEDS: ESCITALOPRAM OXALATE 20 MG TABLET (FP) PO SCH (10:29)
[2017-10-29] MEDS: NICOTINE 21 MG/24 HOURS TOPICAL PATCH TD SCH (10:31)
--- NOTE | 2017-10-29 12:50 | PN ---
[facility] Progress Note (SOAP) Subjective: GI upset tremor sweat joint aches cane for ambulation constipation Objective: 10/29/17 12:49 Vital Signs Temperature 97.7 F 10/29/17 10:16 Pulse Rate 79 10/29/17 10:16 Respiratory Rate 16 10/29/17 10:16 Blood Pressure 107/60 10/29/17 10:16 O2 Sat by Pulse Oximetry (%) Laboratory Last Values WBC 10.0 K/mm3 (4.0-10.0) D 10/27/17 05:50 RBC 4.84 M/mm3 (3.60-5.2) 10/27/17 05:50 Hgb 14.2 GM/dL (10.7-15.3) D 10/27/17 05:50 Hct 43.7 % (32.4-45.2) 10/27/17 05:50 MCV 90.3 fl (80-96) 10/27/17 05:50 MCH 29.3 pg (25.7-33.7) 10/27/17 05:50 MCHC 32.4 g/dl (32.0-36.0) 10/27/17 05:50 RDW 14.9 % (11.6-15.6) 10/27/17 05:50 Plt Count 272 K/MM3 (134-434) D 10/27/17 05:50 MPV 10.3 fl (7.5-11.1) 10/27/17 05:50 Sodium 137 mmol/L (136-145) 10/27/17 05:50 Potassium 3.6 mmol/L (3.5-5.1) 10/27/17 05:50 Chloride 105 mmol/L (98-107) 10/27/17 05:50 Carbon Dioxide 21 mmol/L (21-32) 10/27/17 05:50 Anion Gap 11 (8-16) 10/27/17 05:50 BUN 11 mg/dL (7-18) 10/27/17 05:50 Creatinine 0.7 mg/dL (0.55-1.02) 10/27/17 05:50 Creat Clearance w eGFR > 60 (>60) 10/27/17 05:50 Random Glucose 92 mg/dL (74-106) 10/27/17 05:50 Calcium 8.8 mg/dL (8.5-10.1) 10/27/17 05:50 Total Bilirubin 0.8 mg/dL (0.2-1.0) D 10/27/17 05:50 AST 23 U/L (15-37) 10/27/17 05:50 ALT 26 U/L (12-78) 10/27/17 05:50 Alkaline Phosphatase 137 U/L (45-117) H 10/27/17 05:50 Total Protein 9.1 g/dl (6.4-8.2) H 10/27/17 05:50 Albumin 4.1 g/dl (3.4-5.0) 10/27/17 05:50 Urine Color Dkyellow 10/26/17 15:40 Urine Appearance Clear 10/26/17 15:40 Urine pH 6.0 (5.0-8.0) 10/26/17 15:40 Ur Specific [place] 1.019 (1.001-1.035) 10/26/17 15:40 Urine Protein Negative (NEGATIVE) 10/26/17 15:40 Urine Glucose (UA) Negative (NEGATIVE) 10/26/17 15:40 Urine Ketones Trace (NEGATIVE) H 10/26/17 15:40 Urine Blood Negative (NEGATIVE) 10/26/17 15:40 Urine Nitrite Negative (NEGATIVE) 10/26/17 15:40 Urine Bilirubin Negative (NEGATIVE) 10/26/17 15:40 Urine Urobilinogen 4.0 e.u/dl mg/dL (0.2-1.0) H 10/26/17 15:40 Ur Leukocyte Esterase Negative (NEGATIVE) 10/26/17 15:40 RPR Titer Nonreactive (NONREACTIVE) 10/27/17 05:50 HIV 1&2 Antibody Screen Negative 10/26/17 12:40 HIV P24 Antigen Negative 10/26/17 12:40 lab noted Assessment: 10/29/17 12:50 withdrawal sx Plan: continue detox
[2017-10-29] MEDS: SENNOSIDES 8.6MG TABLET (FP) PO SCH (13:44)
[2017-10-29] MEDS: chlordiazePOXIDE HCL 10 MG CAPSULE PO SCH ×2 (17:06→22:29)
[2017-10-29] MEDS: THIAMINE HCL 100 MG TABLET (FP) PO SCH (22:28)
[2017-10-29] MEDS: QUEtiapine FUMARATE 200 MG TABLET PO SCH (22:29)
[2017-10-29] MEDS: BISACODYL 5 MG TABLET.DR (FP) PO SCH (22:29)
[2017-10-30] MEDS: chlordiazePOXIDE HCL 10 MG CAPSULE PO SCH ×2 (07:39→10:34)
[2017-10-30] MEDS: GABAPENTIN 300 MG CAPSULE (FP) PO SCH ×3 (07:39→22:09)
[2017-10-30] MEDS ORDERED: METHADONE HCL 10 MG TABLET (FOR DETOX USE ONLY) PO SCH (10:00)
[2017-10-30] MEDS ORDERED: METHOCARBAMOL 500 MG TABLET PO ONE (10:02)
--- NOTE | 2017-10-30 10:02 | PN ---
[facility] Progress Note (SOAP) Subjective: feeling better no tremor less sweat calm alert oriented x 3 muscle cramp Objective: 10/30/17 09:59 Vital Signs Temperature 98.2 F 10/30/17 06:34 Pulse Rate 69 10/30/17 06:34 Respiratory Rate 18 10/30/17 06:34 Blood Pressure 116/64 10/30/17 06:34 O2 Sat by Pulse Oximetry (%) Laboratory Last Values WBC 10.0 K/mm3 (4.0-10.0) D 10/27/17 05:50 RBC 4.84 M/mm3 (3.60-5.2) 10/27/17 05:50 Hgb 14.2 GM/dL (10.7-15.3) D 10/27/17 05:50 Hct 43.7 % (32.4-45.2) 10/27/17 05:50 MCV 90.3 fl (80-96) 10/27/17 05:50 MCH 29.3 pg (25.7-33.7) 10/27/17 05:50 MCHC 32.4 g/dl (32.0-36.0) 10/27/17 05:50 RDW 14.9 % (11.6-15.6) 10/27/17 05:50 Plt Count 272 K/MM3 (134-434) D 10/27/17 05:50 MPV 10.3 fl (7.5-11.1) 10/27/17 05:50 Sodium 137 mmol/L (136-145) 10/27/17 05:50 Potassium 3.6 mmol/L (3.5-5.1) 10/27/17 05:50 Chloride 105 mmol/L (98-107) 10/27/17 05:50 Carbon Dioxide 21 mmol/L (21-32) 10/27/17 05:50 Anion Gap 11 (8-16) 10/27/17 05:50 BUN 11 mg/dL (7-18) 10/27/17 05:50 Creatinine 0.7 mg/dL (0.55-1.02) 10/27/17 05:50 Creat Clearance w eGFR > 60 (>60) 10/27/17 05:50 Random Glucose 92 mg/dL (74-106) 10/27/17 05:50 Calcium 8.8 mg/dL (8.5-10.1) 10/27/17 05:50 Total Bilirubin 0.8 mg/dL (0.2-1.0) D 10/27/17 05:50 AST 23 U/L (15-37) 10/27/17 05:50 ALT 26 U/L (12-78) 10/27/17 05:50 Alkaline Phosphatase 137 U/L (45-117) H 10/27/17 05:50 Total Protein 9.1 g/dl (6.4-8.2) H 10/27/17 05:50 Albumin 4.1 g/dl (3.4-5.0) 10/27/17 05:50 Urine Color Dkyellow 10/26/17 15:40 Urine Appearance Clear 10/26/17 15:40 Urine pH 6.0 (5.0-8.0) 10/26/17 15:40 Ur Specific [place] 1.019 (1.001-1.035) 10/26/17 15:40 Urine Protein Negative (NEGATIVE) 10/26/17 15:40 Urine Glucose (UA) Negative (NEGATIVE) 10/26/17 15:40 Urine Ketones Trace (NEGATIVE) H 10/26/17 15:40 Urine Blood Negative (NEGATIVE) 10/26/17 15:40 Urine Nitrite Negative (NEGATIVE) 10/26/17 15:40 Urine Bilirubin Negative (NEGATIVE) 10/26/17 15:40 Urine Urobilinogen 4.0 e.u/dl mg/dL (0.2-1.0) H 10/26/17 15:40 Ur Leukocyte Esterase Negative (NEGATIVE) 10/26/17 15:40 RPR Titer Nonreactive (NONREACTIVE) 10/27/17 05:50 HIV 1&2 Antibody Screen Negative 10/26/17 12:40 HIV P24 Antigen Negative 10/26/17 12:40 lab [id number] Assessment: 10/30/17 10:00 mild withdrawal sx 10/30/17 10:01 mild muscle spasm Plan: medically supervised detox robaxin x 1 dose
[2017-10-30] MEDS: QUEtiapine FUMARATE 50 MG TABLET PO SCH (10:34)
[2017-10-30] MEDS: PRENATAL VITAMINS W/ FOLIC ACID TABLET (FP) PO SCH (10:34)
[2017-10-30] MEDS: ESCITALOPRAM OXALATE 20 MG TABLET (FP) PO SCH (10:34)
[2017-10-30] MEDS: NICOTINE 21 MG/24 HOURS TOPICAL PATCH TD SCH (10:36)
[2017-10-30] MEDS: SENNOSIDES 8.6MG TABLET (FP) PO SCH (14:00)
[2017-10-30] MEDS: THIAMINE HCL 100 MG TABLET (FP) PO SCH (22:08)
[2017-10-30] MEDS: QUEtiapine FUMARATE 200 MG TABLET PO SCH (22:09)
[2017-10-30] MEDS: BISACODYL 5 MG TABLET.DR (FP) PO SCH (22:09)
[2017-10-31] MEDS: GABAPENTIN 300 MG CAPSULE (FP) PO SCH (05:52)
[2017-10-31] MEDS ORDERED: METHADONE HCL 5 MG TABLET (FOR DETOX USE ONLY) PO SCH (06:00)
--- NOTE | 2017-10-31 08:51 | DS ---
[facility] Detox Discharge Summary Admission Date: 10/26/17 Discharge Date: 10/31/17 - History Present History: Alcohol Dependence - Physical Exam Results Vital Signs: Vital Signs Temperature 97.5 F L 10/31/17 06:29 Pulse Rate 82 10/31/17 06:29 Respiratory Rate 16 10/31/17 06:29 Blood Pressure 141/90 10/31/17 06:29 O2 Sat by Pulse Oximetry (%) Pertinent Admission Physical Exam Findings: withdrawal sx Vital Signs Temperature 97.5 F L 10/31/17 06:29 Pulse Rate 82 10/31/17 06:29 Respiratory Rate 16 10/31/17 06:29 Blood Pressure 141/90 10/31/17 06:29 O2 Sat by Pulse Oximetry (%) Laboratory Last Values WBC 10.0 K/mm3 (4.0-10.0) D 10/27/17 05:50 RBC 4.84 M/mm3 (3.60-5.2) 10/27/17 05:50 Hgb 14.2 GM/dL (10.7-15.3) D 10/27/17 05:50 Hct 43.7 % (32.4-45.2) 10/27/17 05:50 MCV 90.3 fl (80-96) 10/27/17 05:50 MCH 29.3 pg (25.7-33.7) 10/27/17 05:50 MCHC 32.4 g/dl (32.0-36.0) 10/27/17 05:50 RDW 14.9 % (11.6-15.6) 10/27/17 05:50 Plt Count 272 K/MM3 (134-434) D 10/27/17 05:50 MPV 10.3 fl (7.5-11.1) 10/27/17 05:50 Sodium 137 mmol/L (136-145) 10/27/17 05:50 Potassium 3.6 mmol/L (3.5-5.1) 10/27/17 05:50 Chloride 105 mmol/L (98-107) 10/27/17 05:50 Carbon Dioxide 21 mmol/L (21-32) 10/27/17 05:50 Anion Gap 11 (8-16) 10/27/17 05:50 BUN 11 mg/dL (7-18) 10/27/17 05:50 Creatinine 0.7 mg/dL (0.55-1.02) 10/27/17 05:50 Creat Clearance w eGFR > 60 (>60) 10/27/17 05:50 Random Glucose 92 mg/dL (74-106) 10/27/17 05:50 Calcium 8.8 mg/dL (8.5-10.1) 10/27/17 05:50 Total Bilirubin 0.8 mg/dL (0.2-1.0) D 10/27/17 05:50 AST 23 U/L (15-37) 10/27/17 05:50 ALT 26 U/L (12-78) 10/27/17 05:50 Alkaline Phosphatase 137 U/L (45-117) H 10/27/17 05:50 Total Protein 9.1 g/dl (6.4-8.2) H 10/27/17 05:50 Albumin 4.1 g/dl (3.4-5.0) 10/27/17 05:50 Urine Color Dkyellow 10/26/17 15:40 Urine Appearance Clear 10/26/17 15:40 Urine pH 6.0 (5.0-8.0) 10/26/17 15:40 Ur Specific [place] 1.019 (1.001-1.035) 10/26/17 15:40 Urine Protein Negative (NEGATIVE) 10/26/17 15:40 Urine Glucose (UA) Negative (NEGATIVE) 10/26/17 15:40 Urine Ketones Trace (NEGATIVE) H 10/26/17 15:40 Urine Blood Negative (NEGATIVE) 10/26/17 15:40 Urine Nitrite Negative (NEGATIVE) 10/26/17 15:40 Urine Bilirubin Negative (NEGATIVE) 10/26/17 15:40 Urine Urobilinogen 4.0 e.u/dl mg/dL (0.2-1.0) H 10/26/17 15:40 Ur Leukocyte Esterase Negative (NEGATIVE) 10/26/17 15:40 RPR Titer Nonreactive (NONREACTIVE) 10/27/17 05:50 HIV 1&2 Antibody Screen Negative 10/26/17 12:40 HIV P24 Antigen Negative 10/26/17 12:40 lab noted - Treatment Hospital Course: Detox Protocol Followed, Detoxed Safely, Responded well, Discharged Condition Good, Rehab Referral Accepted Patient has Accepted a Rehab Referral to: [facility] - Medication Discharge Medications: Ambulatory Orders Zolpidem Tartrate [Ambien] 10 mg PO HS 12/25/13 Quetiapine Fumarate [Seroquel -] 400 mg PO HS #30 mg 07/25/17 Buspirone HCl [Buspar -] 30 mg PO BID #60 tablet 10/26/17 Escitalopram Oxalate [Lexapro -] 20 mg PO DAILY #30 tablet 10/26/17 Quetiapine Fumarate [Seroquel -] 50 mg PO DAILY #30 mg 10/26/17 Quetiapine Fumarate [Seroquel -] 200 mg PO HS #30 tablet 10/26/17 Albuterol Sulfate Inhaler - [Ventolin Hfa Inhaler -] 2 inh PO Q4H PRN #1 inhaler 10/31/17 Gabapentin [Neurontin -] 300 mg PO TID #42 capsule MDD 300 mg 10/31/17 - Diagnosis (1) Alcohol dependence with uncomplicated withdrawal Current Visit: Yes Status: Acute (2) Methadone maintenance therapy patient Current Visit: Yes Status: Chronic - AMA Did Patient Leave Against Medical Advice: No
[2017-10-31] MEDS: ESCITALOPRAM OXALATE 20 MG TABLET (FP) PO SCH (09:56)
[2017-10-31] MEDS: PRENATAL VITAMINS W/ FOLIC ACID TABLET (FP) PO SCH (09:56)
[2017-10-31] MEDS: QUEtiapine FUMARATE 50 MG TABLET PO SCH (09:56)
[2017-10-31 10:43] VITALS: BP 113/84; PULSE 87; TEMP 99
== END 2017-10-31 11:08 | disposition other institution (70) | DRG 773 ==
LOC: YASAS 09:32 → Y6N 12:02
PROVIDERS: ADMIT Internal Medicine; ATTEND Internal Medicine
PROC: HZ2ZZZZ Detoxification Services for Substance Abuse Treatment (ICD-10-PCS; principal; 2017-10-26)
DX: F11.23 Opioid dependence with withdrawal (principal); F10.230 Alcohol dependence with withdrawal, uncomplicated; F14.20 Cocaine dependence, uncomplicated; F12.10 Cannabis abuse, uncomplicated; F17.210 Nicotine dependence, cigarettes, uncomplicated; F19.24 Other psychoactive substance dependence with psychoactive substance-induced mood disorder; F39 Unspecified mood [affective] disorder; F43.10 Post-traumatic stress disorder, unspecified; J45.20 Mild intermittent asthma, uncomplicated; B18.2 Chronic viral hepatitis C; M62.838 Other muscle spasm; R26.2 Difficulty in walking, not elsewhere classified; Z99.89 Dependence on other enabling machines and devices; Z96.652 Presence of left artificial knee joint; Z86.69 Personal history of other diseases of the nervous system and sense organs; Z87.42 Personal history of other diseases of the female genital tract
CPT/HCPCS: 36415; 80053; 81003; 85027; 86593; 87389; 93005; 93010

== ENCOUNTER 2017-10-31 11:14 | Inpatient (IN) | payer OTHER ==
[2017-10-31] MEDS ORDERED: hydrOXYzine PAMOATE 50 MG CAPSULE (FP) PO PRN (12:04)
[2017-10-31] MEDS ORDERED: MAGNESIUM CITRATE 300 ML BOTTLE PO PRN (12:04)
[2017-10-31] MEDS ORDERED: NICOTINE POLACRILEX 2 MG GUM BUC PRN (12:04)
[2017-10-31] MEDS ORDERED: LOPERAMIDE HCL 2 MG CAPSULE PO PRN (12:04)
[2017-10-31] MEDS ORDERED: MENTHOL/PHENOL 1 EACH UD MM PRN (12:04)
[2017-10-31] MEDS ORDERED: MAGNESIUM HYDROX 2400MG/30ML ORAL SUSPENSION 30 ML CUP PO PRN (12:04)
[2017-10-31] MEDS ORDERED: ALBUTEROL SO4 18 GM HFA INHALER IH PRN (12:04)
[2017-10-31] MEDS ORDERED: guaiFENesin/D-METHORPHAN HB 10 ML UNIT-DOSE CUPS PO PRN (12:04)
[2017-10-31] MEDS ORDERED: P-EPHED 60MG/TRIPROLIDI 2.5MG TABLET PO PRN (12:04)
--- NOTE | 2017-10-31 12:04 | HP ---
LUCAS RAMIREZ Rehab Assess/Revision - Admission History Admitted to Rehab from: [facility] [place] Date of Admission to Rehab: 10/31/2017 - Vital signs Vital Signs: Vital Signs Period Temp Pulse Resp BP Sys/Vidal Pulse Ox Last 24 Hr 97.9 F 81 18 120/73 - Findings Detox History & Physical reviewed: Yes Concur with findings: Yes Inpatient Rehab Admission - Initial Determination Are CD services needed?: Yes Free of communicable disease: Yes Not in need of hospitalization: Yes - Rehab Admission Criteria Comorbidities: Yes Patient is meeting Inpatient Rehab admission criteria:: Yes
[2017-10-31] MEDS: QUEtiapine FUMARATE 50 MG TABLET PO SCH (14:22)
[2017-10-31] MEDS ORDERED: QUEtiapine FUMARATE 200 MG TABLET PO SCH (22:00)
[2017-10-31] MEDS: GABAPENTIN 300 MG CAPSULE (FP) PO SCH (22:01)
[2017-10-31] MEDS: THIAMINE HCL 100 MG TABLET (FP) PO SCH (22:01)
[2017-10-31] MEDS: BISACODYL 5 MG TABLET.DR (FP) PO SCH (22:02)
[2017-11-01] MEDS: GABAPENTIN 300 MG CAPSULE (FP) PO SCH ×3 (07:09→21:54)
[2017-11-01] MEDS: SENNOSIDES 8.6MG TABLET (FP) PO SCH (10:50)
[2017-11-01] MEDS: PRENATAL VITAMINS W/ FOLIC ACID TABLET (FP) PO SCH (10:50)
[2017-11-01] MEDS: QUEtiapine FUMARATE 50 MG TABLET PO SCH (10:50)
[2017-11-01] MEDS: NICOTINE 14 MG/24 HOURS TOPICAL PATCH TD SCH (10:51)
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
[2017-11-01] MEDS: QUEtiapine FUMARATE 300 MG TABLET PO SCH (21:54)
[2017-11-01] MEDS: THIAMINE HCL 100 MG TABLET (FP) PO SCH (21:54)
[2017-11-01] MEDS: BISACODYL 5 MG TABLET.DR (FP) PO SCH (21:54)
[2017-11-02] MEDS: GABAPENTIN 300 MG CAPSULE (FP) PO SCH ×3 (06:52→21:47)
[2017-11-02] MEDS: NICOTINE 14 MG/24 HOURS TOPICAL PATCH TD SCH (10:32)
[2017-11-02] MEDS: PRENATAL VITAMINS W/ FOLIC ACID TABLET (FP) PO SCH (10:33)
[2017-11-02] MEDS: QUEtiapine FUMARATE 50 MG TABLET PO SCH (10:33)
[2017-11-02] MEDS: SENNOSIDES 8.6MG TABLET (FP) PO SCH (10:33)
[2017-11-02] MEDS: IBUPROFEN 400 MG TABLET (FP) PO PRN ×2 (10:34→21:48)
[2017-11-02] MEDS: THIAMINE HCL 100 MG TABLET (FP) PO SCH (21:46)
[2017-11-02] MEDS: BISACODYL 5 MG TABLET.DR (FP) PO SCH (21:46)
[2017-11-02] MEDS: QUEtiapine FUMARATE 300 MG TABLET PO SCH (21:46)
[2017-11-03] MEDS: IBUPROFEN 400 MG TABLET (FP) PO PRN (06:46)
[2017-11-03] MEDS: GABAPENTIN 300 MG CAPSULE (FP) PO SCH ×3 (06:47→22:10)
[2017-11-03] MEDS: ACETAMINOPHEN 325 MG TABLET (FP) PO PRN ×2 (09:17→13:34)
[2017-11-03] MEDS: PRENATAL VITAMINS W/ FOLIC ACID TABLET (FP) PO SCH (09:18)
[2017-11-03] MEDS: SENNOSIDES 8.6MG TABLET (FP) PO SCH (09:18)
[2017-11-03] MEDS: QUEtiapine FUMARATE 50 MG TABLET PO SCH (09:18)
[2017-11-03] MEDS: NICOTINE 14 MG/24 HOURS TOPICAL PATCH TD SCH (09:19)
[2017-11-03] MEDS: MAG HYDROX/AL HYDROX/SIMETH 30 ML UNIT-DOSE CUP PO PRN (22:09)
[2017-11-03] MEDS: THIAMINE HCL 100 MG TABLET (FP) PO SCH (22:10)
[2017-11-03] MEDS: BISACODYL 5 MG TABLET.DR (FP) PO SCH (22:10)
[2017-11-03] MEDS: QUEtiapine FUMARATE 300 MG TABLET PO SCH (22:10)
[2017-11-04] MEDS: ACETAMINOPHEN 325 MG TABLET (FP) PO PRN ×3 (05:12→17:40)
[2017-11-04] MEDS: IBUPROFEN 400 MG TABLET (FP) PO PRN ×2 (06:48→13:45)
[2017-11-04] MEDS: GABAPENTIN 300 MG CAPSULE (FP) PO SCH ×3 (06:49→22:04)
[2017-11-04] MEDS: MAG HYDROX/AL HYDROX/SIMETH 30 ML UNIT-DOSE CUP PO PRN (06:49)
[2017-11-04] MEDS ORDERED: PT OWN MED DRAWER 7, Y5N ONE ×2 (07:11→09:02)
[2017-11-04] MEDS: SENNOSIDES 8.6MG TABLET (FP) PO SCH (09:37)
[2017-11-04] MEDS: QUEtiapine FUMARATE 50 MG TABLET PO SCH (09:37)
[2017-11-04] MEDS: PRENATAL VITAMINS W/ FOLIC ACID TABLET (FP) PO SCH (09:37)
[2017-11-04] MEDS: NICOTINE 14 MG/24 HOURS TOPICAL PATCH TD SCH (09:38)
[2017-11-04] MEDS: BISACODYL 5 MG TABLET.DR (FP) PO SCH (22:04)
[2017-11-04] MEDS: QUEtiapine FUMARATE 300 MG TABLET PO SCH (22:04)
[2017-11-04] MEDS: THIAMINE HCL 100 MG TABLET (FP) PO SCH (22:04)
[2017-11-05] MEDS: IBUPROFEN 400 MG TABLET (FP) PO PRN (06:43)
[2017-11-05] MEDS: GABAPENTIN 300 MG CAPSULE (FP) PO SCH ×3 (06:43→21:58)
[2017-11-05] MEDS: QUEtiapine FUMARATE 50 MG TABLET PO SCH (10:32)
[2017-11-05] MEDS: SENNOSIDES 8.6MG TABLET (FP) PO SCH (10:32)
[2017-11-05] MEDS: PRENATAL VITAMINS W/ FOLIC ACID TABLET (FP) PO SCH (10:32)
[2017-11-05] MEDS: NICOTINE 14 MG/24 HOURS TOPICAL PATCH TD SCH (10:32)
[2017-11-05] MEDS: QUEtiapine FUMARATE 300 MG TABLET PO SCH (21:58)
[2017-11-05] MEDS: BISACODYL 5 MG TABLET.DR (FP) PO SCH (21:58)
[2017-11-05] MEDS: THIAMINE HCL 100 MG TABLET (FP) PO SCH (21:58)
[2017-11-06] MEDS: GABAPENTIN 300 MG CAPSULE (FP) PO SCH (06:48)
[2017-11-06 07:11] VITALS: BP 111/74; PULSE 93; TEMP 98.3
[2017-11-06] MEDS: QUEtiapine FUMARATE 50 MG TABLET PO SCH (10:30)
[2017-11-06] MEDS: PRENATAL VITAMINS W/ FOLIC ACID TABLET (FP) PO SCH (10:30)
[2017-11-06] MEDS: NICOTINE 14 MG/24 HOURS TOPICAL PATCH TD SCH (10:31)
[2017-11-06] MEDS: SENNOSIDES 8.6MG TABLET (FP) PO SCH (10:32)
--- NOTE | 2017-11-06 12:26 | PN ---
[facility] Progress Note Note: Psychiatric nurse practitioner note: Pt. left AMA on 11/06/17. Please see RN note for further details.
== END 2017-11-06 11:20 | disposition left against medical advice (07) | DRG 770 ==
LOC: YASAS 11:14 → Y3E 11:16
PROVIDERS: ADMIT Psychiatry & Neurology Psychiatry; ATTEND Psychiatry & Neurology Psychiatry
PROC: HZ42ZZZ Group Counseling for Substance Abuse Treatment, Cognitive-Behavioral (ICD-10-PCS; principal; 2017-10-31)
DX: F14.20 Cocaine dependence, uncomplicated (principal); F11.20 Opioid dependence, uncomplicated; F12.10 Cannabis abuse, uncomplicated; F17.210 Nicotine dependence, cigarettes, uncomplicated; F31.9 Bipolar disorder, unspecified; F43.10 Post-traumatic stress disorder, unspecified; B18.2 Chronic viral hepatitis C; J45.20 Mild intermittent asthma, uncomplicated; Z87.898 Personal history of other specified conditions

== ENCOUNTER 2017-12-08 13:36 | Inpatient (IN) | payer OTHER ==
[2017-12-08] MEDS ORDERED: MAGNESIUM CITRATE 300 ML BOTTLE PO PRN (14:36)
[2017-12-08] MEDS ORDERED: MAGNESIUM HYDROX 2400MG/30ML ORAL SUSPENSION 30 ML CUP PO PRN (14:36)
[2017-12-08] MEDS ORDERED: guaiFENesin/D-METHORPHAN HB 10 ML UNIT-DOSE CUPS PO PRN (14:36)
[2017-12-08] MEDS ORDERED: MENTHOL/PHENOL 1 EACH UD MM PRN (14:36)
[2017-12-08] MEDS ORDERED: NICOTINE POLACRILEX 2 MG GUM BUC PRN (14:36)
[2017-12-08] MEDS ORDERED: ACETAMINOPHEN 325 MG TABLET (FP) PO PRN (14:36)
[2017-12-08] MEDS ORDERED: P-EPHED 60MG/TRIPROLIDI 2.5MG TABLET PO PRN (14:36)
[2017-12-08] MEDS ORDERED: MAG HYDROX/AL HYDROX/SIMETH 30 ML UNIT-DOSE CUP PO PRN (14:36)
[2017-12-08] MEDS ORDERED: hydrOXYzine PAMOATE 50 MG CAPSULE (FP) PO PRN (14:36)
[2017-12-08] MEDS ORDERED: LOPERAMIDE HCL 2 MG CAPSULE PO PRN (14:36)
--- NOTE | 2017-12-08 14:36 | HP ---
Inpatient Rehab Admission - Initial Determination Are CD services needed?: Yes Free of communicable disease: Yes Not in need of hospitalization: Yes - Rehab Admission Criteria Comorbidities: Yes Patient is meeting Inpatient Rehab admission criteria:: Yes
--- NOTE | 2017-12-08 14:36 | HP ---
LUCAS RAMIREZ Rehab Assess/Revision - Admission History Admitted to Rehab from: [facility] [place] Date of Admission to Rehab: 12/08/2017 - Vital signs Vital Signs: reviewed, tachycarida, ambulating with a walker, c/o protracted opiodi withdrawal and body aches would liket o start suboxone - Findings Detox History & Physical reviewed: Yes Concur with findings: Yes Comments/Additional Findings: will start on suboxone 2mg daily, symptomatic relief of protracted of opioid withdrawal
[2017-12-08] MEDS ORDERED: ALBUTEROL SO4 18 GM HFA INHALER IH PRN (14:38)
[2017-12-08] MEDS ORDERED: cloNIDine HCL 0.1 MG TABLET PO ONE (15:00)
--- NOTE | 2017-12-08 15:07 | PN ---
[facility] Progress Note Note: was called by the nurse to enter medications for this patient with history of Bipolar and P T S D, according to nurse patient sedated , review [facility] (was at 3E 11/05) medical record and medications, she is currently on Seroquel 50 mg po am and 300 mg po hs, Buspar 30 mg po bid and Lexapro 20 mg po daily, will order Seroquel 100 mg po hs, Lexapro 20 mg po daily, Buspar 15 mg po bid,hold Seroquel 50 mg po am.
[2017-12-08] MEDS ORDERED: BUPRENORPHINE/NALOXONE 2 MG/0.5 MG FILM PACKET SL ONE (15:15)
[2017-12-08] MEDS: THIAMINE HCL 100 MG TABLET (FP) PO SCH (21:58)
[2017-12-08] MEDS: MELATONIN 5 MG TABLETS PO SCH (21:58)
[2017-12-08] MEDS: QUEtiapine FUMARATE 100 MG TABLET (FP) PO SCH (21:58)
[2017-12-08] MEDS: IBUPROFEN 400 MG TABLET (FP) PO PRN (21:59)
[2017-12-09] MEDS: IBUPROFEN 400 MG TABLET (FP) PO PRN (06:53)
[2017-12-09] MEDS ORDERED: BUPRENORPHINE/NALOXONE 2 MG/0.5 MG FILM PACKET SL SCH (10:00)
[2017-12-09] MEDS: ESCITALOPRAM OXALATE 20 MG TABLET (FP) PO SCH (10:20)
[2017-12-09] MEDS: PRENATAL VITAMINS W/ FOLIC ACID TABLET (FP) PO SCH (10:20)
[2017-12-09] MEDS: BUPRENORPHINE/NALOXONE 2 MG/0.5 MG FILM PACKET SL SCH (10:20)
[2017-12-09] MEDS: NICOTINE 14 MG/24 HOURS TOPICAL PATCH TD SCH (10:20)
[2017-12-09] MEDS: MELATONIN 5 MG TABLETS PO SCH (21:51)
[2017-12-09] MEDS: THIAMINE HCL 100 MG TABLET (FP) PO SCH (21:51)
[2017-12-09] MEDS: QUEtiapine FUMARATE 100 MG TABLET (FP) PO SCH (21:51)
[2017-12-10] MEDS: IBUPROFEN 400 MG TABLET (FP) PO PRN ×2 (02:41→10:34)
[2017-12-10] MEDS: ESCITALOPRAM OXALATE 20 MG TABLET (FP) PO SCH (10:34)
[2017-12-10] MEDS: BUPRENORPHINE/NALOXONE 2 MG/0.5 MG FILM PACKET SL SCH (10:35)
[2017-12-10] MEDS: NICOTINE 14 MG/24 HOURS TOPICAL PATCH TD SCH (10:35)
[2017-12-10] MEDS: PRENATAL VITAMINS W/ FOLIC ACID TABLET (FP) PO SCH (10:35)
[2017-12-10] MEDS ORDERED: QUEtiapine FUMARATE 100 MG TABLET (FP) PO SCH (11:03)
--- NOTE | 2017-12-10 11:09 | PN ---
[facility] Progress Note Note: Psychiatric nurse practitoner note: Received call from RN on 3E concerning patient's request for seroquel 300mg. Pt. seen by Dr. Gonzales and was stared on seroquel 100mg. Pt. reports difficulty sleeping and is requesting seroquel dose to be increased. Dr. Gonzales note, read and appreciated. Pharmacy claims reviewed. Pt. given a prescription of seroquel 300mg qhs on 11/2017. Seroquel to be increased to 200mg qhs tonight. Will continue to monitor.
[2017-12-10] MEDS: MELATONIN 5 MG TABLETS PO SCH (21:42)
[2017-12-10] MEDS: THIAMINE HCL 100 MG TABLET (FP) PO SCH (21:42)
[2017-12-10] MEDS: QUEtiapine FUMARATE 100 MG TABLET (FP) PO SCH (21:43)
[2017-12-11] MEDS: IBUPROFEN 400 MG TABLET (FP) PO PRN (06:50)
[2017-12-11] MEDS ORDERED: CYCLOBENZAPRINE HCL 5 MG TABLET PO PRN (07:41)
[2017-12-11] MEDS ORDERED: ACETAMINOPHEN 325 MG TABLET (FP) PO PRN (07:41)
--- NOTE | 2017-12-11 07:44 | PN ---
[facility] Progress Note Note: C/O HIP PAIN R/T OLD FX. WAS TAKING PERCOOCET AT HOME. DC MOTRIN NAPROXEN 500 MG PO BID LIDOCAINE PATCH ORDERED FLEXERIL 5 MG PO TID TYLENOL FOR BREAK THROUGH PAIN NEEDED
[2017-12-11] MEDS: BUPRENORPHINE/NALOXONE 2 MG/0.5 MG FILM PACKET SL SCH (10:24)
[2017-12-11] MEDS: LIDOCAINE 5% TOPICAL PATCH TP SCH (10:24)
[2017-12-11] MEDS: ESCITALOPRAM OXALATE 20 MG TABLET (FP) PO SCH (10:24)
[2017-12-11] MEDS: NICOTINE 14 MG/24 HOURS TOPICAL PATCH TD SCH (10:24)
[2017-12-11] MEDS: NAPROXEN 500 MG TABLET (FP) PO SCH ×2 (10:24→21:54)
[2017-12-11] MEDS: PRENATAL VITAMINS W/ FOLIC ACID TABLET (FP) PO SCH (10:24)
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
[2017-12-11] MEDS: MELATONIN 5 MG TABLETS PO PRN (21:54)
[2017-12-11] MEDS: THIAMINE HCL 100 MG TABLET (FP) PO SCH (21:54)
[2017-12-11] MEDS: QUEtiapine FUMARATE 100 MG TABLET (FP) PO SCH (21:54)
[2017-12-11] MEDS: LIDOCAINE PATCH REMOVAL MC SCH (21:55)
[2017-12-12] MEDS: LIDOCAINE 5% TOPICAL PATCH TP SCH (10:32)
[2017-12-12] MEDS: PRENATAL VITAMINS W/ FOLIC ACID TABLET (FP) PO SCH (10:32)
[2017-12-12] MEDS: NAPROXEN 500 MG TABLET (FP) PO SCH ×2 (10:32→21:48)
[2017-12-12] MEDS: ESCITALOPRAM OXALATE 20 MG TABLET (FP) PO SCH (10:32)
[2017-12-12] MEDS: NICOTINE 14 MG/24 HOURS TOPICAL PATCH TD SCH (10:32)
[2017-12-12] MEDS: BUPRENORPHINE/NALOXONE 2 MG/0.5 MG FILM PACKET SL SCH (10:32)
[2017-12-12] MEDS: QUEtiapine FUMARATE 100 MG TABLET (FP) PO SCH (21:47)
[2017-12-12] MEDS: THIAMINE HCL 100 MG TABLET (FP) PO SCH (21:47)
[2017-12-12] MEDS: MELATONIN 5 MG TABLETS PO PRN (21:48)
[2017-12-12] MEDS: LIDOCAINE PATCH REMOVAL MC SCH (21:48)
[2017-12-13] MEDS: NAPROXEN 500 MG TABLET (FP) PO SCH ×2 (10:42→21:31)
[2017-12-13] MEDS: PRENATAL VITAMINS W/ FOLIC ACID TABLET (FP) PO SCH (10:42)
[2017-12-13] MEDS: BUPRENORPHINE/NALOXONE 2 MG/0.5 MG FILM PACKET SL SCH (10:42)
[2017-12-13] MEDS: LIDOCAINE 5% TOPICAL PATCH TP SCH (10:42)
[2017-12-13] MEDS: NICOTINE 14 MG/24 HOURS TOPICAL PATCH TD SCH (10:42)
[2017-12-13] MEDS: ESCITALOPRAM OXALATE 20 MG TABLET (FP) PO SCH (10:42)
[2017-12-13] MEDS: QUEtiapine FUMARATE 100 MG TABLET (FP) PO SCH (21:30)
[2017-12-13] MEDS: THIAMINE HCL 100 MG TABLET (FP) PO SCH (21:30)
[2017-12-13] MEDS: LIDOCAINE PATCH REMOVAL MC SCH (21:32)
[2017-12-14 07:32] VITALS: BP 125/77; PULSE 84; TEMP 97.9
[2017-12-14] MEDS: PRENATAL VITAMINS W/ FOLIC ACID TABLET (FP) PO SCH (09:59)
[2017-12-14] MEDS: NAPROXEN 500 MG TABLET (FP) PO SCH (09:59)
[2017-12-14] MEDS: ESCITALOPRAM OXALATE 20 MG TABLET (FP) PO SCH (09:59)
[2017-12-14] MEDS: LIDOCAINE 5% TOPICAL PATCH TP SCH (10:00)
[2017-12-14] MEDS: BUPRENORPHINE/NALOXONE 2 MG/0.5 MG FILM PACKET SL SCH (10:00)
[2017-12-14] MEDS: NICOTINE 14 MG/24 HOURS TOPICAL PATCH TD SCH (10:00)
--- NOTE | 2017-12-15 10:18 | PN ---
[facility] Progress Note Note: Retail Office Associate received call from the counselor of [facility] regarding above patient's condition.Case was discussed on team meeting,patient was invited.According to the staff patient is unable to attend group and other activities which necessary for her stabilization due to her medical condition (ongoing low back, knee pain as a result severe arthritis,unsuccessful knee replacement with complications) .Conclusion was made to discharge the patient (medical discharge ) for further stabilization on outpatient basis with her primary Care physician , appropriate aftercare referral was provided.
== END 2017-12-14 15:00 | disposition home or self-care (01) | DRG 772 ==
LOC: YASAS 13:36 → Y3E 13:37
PROVIDERS: ADMIT Psychiatry & Neurology Psychiatry; ATTEND Psychiatry & Neurology Psychiatry
PROC: HZ51ZZZ Individual Psychotherapy for Substance Abuse Treatment, Behavioral (ICD-10-PCS; principal; 2017-12-08)
DX: F10.20 Alcohol dependence, uncomplicated (principal); F31.9 Bipolar disorder, unspecified; F43.10 Post-traumatic stress disorder, unspecified; F19.24 Other psychoactive substance dependence with psychoactive substance-induced mood disorder; M16.11 Unilateral primary osteoarthritis, right hip; R26.89 Other abnormalities of gait and mobility; Z99.89 Dependence on other enabling machines and devices

== ENCOUNTER 2023-09-26 12:06 | Inpatient (IN) | payer OTHER ==
[2023-09-26 13:09] VITALS: BMI 25.4
[2023-09-26] MEDS ORDERED: POLYETHYLENE GLYCOL (HEALTHYLAX) 3350 17 GM PACKET PO PRN (14:43)
[2023-09-26] MEDS ORDERED: NICOTINE POLACRILEX 2 MG GUM BUC PRN (14:43)
[2023-09-26] MEDS ORDERED: guaiFENesin 600 MG TABLET.ER (FP) PO PRN (14:43)
[2023-09-26] MEDS ORDERED: MAG HYDROX/AL HYDROX/SIMETH 30 ML UNIT-DOSE CUP PO PRN (14:43)
[2023-09-26] MEDS ORDERED: BENZOCAINE/MENTHOL (CHLORASEPTIC ) LOZENGE MM PRN (14:43)
[2023-09-26] MEDS ORDERED: NALOXONE HCL 0.4 MG/ML VIAL IM PRN (14:43)
[2023-09-26] MEDS ORDERED: BISMUTH SUBSALICYLATE 262 MG/15 ML BTL PO PRN (14:43)
[2023-09-26] MEDS ORDERED: NALOXONE HCL (KLOXXADO) 8 MG SPRAY NS PRN (14:43)
[2023-09-26] MEDS ORDERED: MAGNESIUM HYDROX 2400MG/30ML ORAL SUSPENSION 30 ML CUP PO PRN (14:43)
[2023-09-26] MEDS ORDERED: ONDANSETRON *ODT* 4 MG TABLET SL PRN (14:43)
[2023-09-26] MEDS ORDERED: ACETAMINOPHEN 325 MG TABLET (FP) PO PRN (14:43)
[2023-09-26] MEDS ORDERED: IBUPROFEN 600 MG TABLET (FP) PO PRN (14:43)
[2023-09-26] MEDS ORDERED: LOPERAMIDE HCL 2 MG CAPSULE PO PRN (14:43)
[2023-09-26] MEDS ORDERED: hydrOXYzine PAMOATE 25 MG CAPSULE (FP) PO PRN (14:43)
[2023-09-26] MEDS ORDERED: chlordiazePOXIDE HCL 25 MG CAPSULE PO PRN (14:43)
[2023-09-26] MEDS ORDERED: DICYCLOMINE HCL 10 MG CAPSULE PO PRN (14:43)
[2023-09-26] MEDS ORDERED: BENZONATATE 200 MG CAPSULE PO PRN (14:43)
[2023-09-26] MEDS ORDERED: IBUPROFEN 400 MG TABLET (FP) PO PRN (14:43)
[2023-09-26] MEDS ORDERED: ALBUTEROL SO4 HFA INHALER IH PRN (14:47)
[2023-09-26] MEDS ORDERED: PRENATAL VITAMINS W/ FOLIC ACID TABLET (FP) PO ONE (15:26)
[2023-09-26] MEDS: PRENATAL VITAMINS W/ FOLIC ACID TABLET (FP) PO SCH (15:28)
[2023-09-26] MEDS: chlordiazePOXIDE HCL 25 MG CAPSULE PO SCH ×2 (17:30→22:20)
[2023-09-26] MEDS: GABAPENTIN 300 MG CAPSULE PO SCH (22:20)
[2023-09-26] MEDS: MELATONIN 5 MG TABLETS PO SCH (22:20)
[2023-09-26] MEDS: THIAMINE HCL 100 MG TABLET (FP) PO SCH (22:20)
[2023-09-27] MEDS: chlordiazePOXIDE HCL 25 MG CAPSULE PO SCH ×4 (05:33→22:18)
[2023-09-27] MEDS: GABAPENTIN 300 MG CAPSULE PO SCH ×3 (05:34→22:18)
[2023-09-27] MEDS ORDERED: methaDONE HCL 10 MG TABLET PO SCH (07:45)
[2023-09-27 08:30] LABS: CHLORIDE 111 mmol/L (98-107); POTASSIUM 4.4 mmol/L (3.5-5.1); SODIUM 141 mmol/L (136-145)
[2023-09-27 08:32] LABS: ANION GAP 7 mmol/L (4-13); BLOOD UREA NITROGEN 11.7 mg/dL (7-18); CALCIUM 8.4 mg/dL (8.5-10.1); CO2 23 mmol/L (21-32); GLUCOSE,RANDOM 103 mg/dL (74-106)
[2023-09-27 08:33] LABS: ALBUMIN 3.1 g/dl (3.4-5.0)
[2023-09-27 08:35] LABS: CREATININE 0.6 mg/dL (0.55-1.3); SGOT/AST 21 U/L (15-37); SGPT/ALT 11 U/L (13-61)
[2023-09-27 08:36] LABS: HEMATOCRIT 39.3 % (32.4-45.2); HEMOGLOBIN 12.9 GM/dL (10.7-15.3); MCH 29.9 pg (25.7-33.7); MCHC 32.7 g/dl (32.0-36.0); MEAN CELL VOLUME 91.4 fl (80-96); MEAN PLT VOLUME 9.9 fl (7.5-11.1); PLATELET COUNT 125 10^3/uL (134-434); RDW 15.5 % (11.6-15.6); WHITE BLOOD COUNT 6.1 K/mm3 (4.0-10.0)
[2023-09-27 08:37] LABS: BILIRUBIN,TOTAL 0.3 mg/dL (0.2-1)
[2023-09-27 08:38] LABS: ALK PHOS 102 U/L (45-117)
[2023-09-27] MEDS ORDERED: methaDONE HCL 10 MG TABLET PO ONE (09:07)
[2023-09-27] MEDS ORDERED: methaDONE 40 MG, methaDONE 30 MG PO ONE (09:10)
[2023-09-27] MEDS: methaDONE 40 MG, methaDONE 30 MG PO SCH (09:14)
[2023-09-27] MEDS: PRENATAL VITAMINS W/ FOLIC ACID TABLET (FP) PO SCH (10:07)
[2023-09-27 14:51] LABS: HIV INTERPRETATION NEGATIVE (NEGATIVE)
[2023-09-27 14:53] LABS: SYPHILIS W/ RPR CONF REACTIVE (NONREACTIVE)
[2023-09-27] MEDS: LACTULOSE 20 GM/30 ML UDC (FOR ORAL USE ONLY) PO SCH (22:17)
[2023-09-27] MEDS: QUEtiapine FUMARATE 100 MG TABLET (FP) PO SCH (22:18)
[2023-09-27] MEDS: AMITRIPTYLINE HCL 10 MG TABLET PO SCH (22:18)
[2023-09-27] MEDS: MELATONIN 5 MG TABLETS PO SCH (22:18)
[2023-09-27] MEDS: THIAMINE HCL 100 MG TABLET (FP) PO SCH (22:18)
[2023-09-28] MEDS: chlordiazePOXIDE HCL 25 MG CAPSULE PO SCH ×4 (05:40→22:57)
[2023-09-28] MEDS: GABAPENTIN 300 MG CAPSULE PO SCH ×3 (05:40→22:57)
[2023-09-28] MEDS: LACTULOSE 20 GM/30 ML UDC (FOR ORAL USE ONLY) PO SCH ×3 (05:41→22:57)
[2023-09-28] MEDS: methaDONE 40 MG, methaDONE 30 MG PO SCH (05:41)
[2023-09-28] MEDS: METHOCARBAMOL 500 MG TABLET PO PRN (10:19)
[2023-09-28] MEDS: PRENATAL VITAMINS W/ FOLIC ACID TABLET (FP) PO SCH (10:19)
[2023-09-28] MEDS: MELATONIN 5 MG TABLETS PO SCH (22:57)
[2023-09-28] MEDS: QUEtiapine FUMARATE 100 MG TABLET (FP) PO SCH (22:57)
[2023-09-28] MEDS: THIAMINE HCL 100 MG TABLET (FP) PO SCH (22:57)
[2023-09-28] MEDS: AMITRIPTYLINE HCL 10 MG TABLET PO SCH (22:57)
[2023-09-29] MEDS ORDERED: chlordiazePOXIDE HCL 10 MG CAPSULE PO PRN
[2023-09-29] MEDS: chlordiazePOXIDE HCL 10 MG CAPSULE PO SCH ×4 (06:00→22:28)
[2023-09-29] MEDS: LACTULOSE 20 GM/30 ML UDC (FOR ORAL USE ONLY) PO SCH ×4 (06:12→22:28)
[2023-09-29] MEDS: methaDONE 40 MG, methaDONE 30 MG PO SCH (06:13)
[2023-09-29] MEDS: GABAPENTIN 300 MG CAPSULE PO SCH ×3 (06:13→22:30)
[2023-09-29] MEDS: PRENATAL VITAMINS W/ FOLIC ACID TABLET (FP) PO SCH (10:13)
[2023-09-29] MEDS: AMITRIPTYLINE HCL 10 MG TABLET PO SCH (22:30)
[2023-09-29] MEDS: QUEtiapine FUMARATE 100 MG TABLET (FP) PO SCH (22:30)
[2023-09-29] MEDS: THIAMINE HCL 100 MG TABLET (FP) PO SCH (22:30)
[2023-09-29] MEDS: MELATONIN 5 MG TABLETS PO SCH (22:30)
[2023-09-30] MEDS: chlordiazePOXIDE HCL 10 MG CAPSULE PO SCH ×2 (05:24→17:50)
[2023-09-30] MEDS: methaDONE 40 MG, methaDONE 30 MG PO SCH (05:24)
[2023-09-30] MEDS: GABAPENTIN 300 MG CAPSULE PO SCH ×3 (05:24→23:20)
[2023-09-30] MEDS: LACTULOSE 20 GM/30 ML UDC (FOR ORAL USE ONLY) PO SCH ×2 (05:24→14:36)
[2023-09-30] MEDS: PRENATAL VITAMINS W/ FOLIC ACID TABLET (FP) PO SCH (09:57)
[2023-09-30] MEDS: THIAMINE HCL 100 MG TABLET (FP) PO SCH (23:20)
[2023-09-30] MEDS: AMITRIPTYLINE HCL 10 MG TABLET PO SCH (23:20)
[2023-09-30] MEDS: MELATONIN 5 MG TABLETS PO SCH (23:20)
[2023-09-30] MEDS: QUEtiapine FUMARATE 100 MG TABLET (FP) PO SCH (23:20)
[2023-10-01] MEDS ORDERED: chlordiazePOXIDE HCL 10 MG CAPSULE PO ONE (05:00)
[2023-10-01] MEDS: GABAPENTIN 300 MG CAPSULE PO SCH ×3 (05:38→22:51)
[2023-10-01] MEDS: methaDONE 40 MG, methaDONE 30 MG PO SCH (05:39)
[2023-10-01] MEDS: METHOCARBAMOL 500 MG TABLET PO PRN (05:42)
[2023-10-01] MEDS: PRENATAL VITAMINS W/ FOLIC ACID TABLET (FP) PO SCH (10:24)
[2023-10-01] MEDS: amLODIPine BESYLATE 10 MG TABLET (FP) PO SCH (14:51)
[2023-10-01] MEDS: QUEtiapine FUMARATE 100 MG TABLET (FP) PO SCH (22:51)
[2023-10-01] MEDS: THIAMINE HCL 100 MG TABLET (FP) PO SCH (22:51)
[2023-10-01] MEDS: AMITRIPTYLINE HCL 10 MG TABLET PO SCH (22:51)
[2023-10-01] MEDS: MELATONIN 5 MG TABLETS PO SCH (22:51)
[2023-10-02] MEDS: methaDONE 40 MG, methaDONE 30 MG PO SCH (05:41)
[2023-10-02] MEDS: GABAPENTIN 300 MG CAPSULE PO SCH (05:41)
[2023-10-02 09:21] VITALS: BP 128/67; PULSE 78; RESP 18; TEMP 98.5
[2023-10-02] MEDS: amLODIPine BESYLATE 10 MG TABLET (FP) PO SCH (09:28)
[2023-10-02] MEDS: PRENATAL VITAMINS W/ FOLIC ACID TABLET (FP) PO SCH (09:28)
== END 2023-10-02 10:46 | disposition home or self-care (01) | DRG 773 ==
LOC: YASAS 12:06 → Y3N 15:05
PROVIDERS: ADMIT Surgery; ATTEND Allergy & Immunology
PROC: HZ2ZZZZ Detoxification Services for Substance Abuse Treatment (ICD-10-PCS; principal; 2023-09-26)
DX: F10.230 Alcohol dependence with withdrawal, uncomplicated (principal); F11.20 Opioid dependence, uncomplicated; F13.20 Sedative, hypnotic or anxiolytic dependence, uncomplicated; F14.20 Cocaine dependence, uncomplicated; F17.210 Nicotine dependence, cigarettes, uncomplicated; F19.24 Other psychoactive substance dependence with psychoactive substance-induced mood disorder; F41.9 Anxiety disorder, unspecified; F43.10 Post-traumatic stress disorder, unspecified; F32.A Depression, unspecified; E72.20 Disorder of urea cycle metabolism, unspecified; J45.20 Mild intermittent asthma, uncomplicated; R76.8 Other specified abnormal immunological findings in serum; Z86.19 Personal history of other infectious and parasitic diseases; Z59.01 Sheltered homelessness; Z87.11 Personal history of peptic ulcer disease; Z99.89 Dependence on other enabling machines and devices
CPT/HCPCS: 36415; 80053; 80307; 82140; 85027; 86593; 86780; 87389; 87635; 87811; 93005; 93010